=== PATIENT | female | born 1965 | race Caucasian/White ===

== ENCOUNTER → 2022-06-04 12:54 | Outpatient (BNVA) | payer MEDICAID, SELFPAY | PROVIDERS: PCP Internal Medicine; Visit Provider Physician Assistant Surgical | DX: Z13.89 Encounter for screening for other disorder (principal) ==

== ENCOUNTER → 2022-06-09 08:47 | Outpatient (BNVA) | payer MEDICAID, SELFPAY | PROVIDERS: PCP Internal Medicine; Visit Provider Surgery | DX: Z13.89 Encounter for screening for other disorder (principal) ==

== ENCOUNTER 2022-06-14 07:33 | Outpatient (REF) | payer MEDICAID, SELFPAY ==
[2022-06-14 07:51] LABS: MANUAL DIFF FLAG NO
[2022-06-14 08:07] LABS: Basophils Percent Auto 0.3 % (0-2); Eosinophils Absolute Auto 0.1 X10*3/uL (0.0-0.4); Eosinophils Percent Auto 1.8 % (0-4); Estimated Average Glucose 105 mg/dL; Hematocrit 42.7 % (37.0-47.0); Hemoglobin 14.2 g/dl (12.0-16.0); Hemoglobin A1c % 5.3 %; Imm Gran Abs Auto 0.01 X10*3/uL (0.00-0.03); Imm Gran Pct Auto 0.2 % (0.0-0.4); Lymphocytes Absolute Auto 2.5 X10*3/uL (1.2-4.9); Lymphocytes Percent Auto 40.3 % (20-40); Mean Corpuscular HGB Conc 33.3 g/dl (31.0-35.0); Mean Corpuscular Hemoglobin 30.3 pg (27.0-33.0); Mean Corpuscular Volume 91.2 fL (80.0-98.0); Mean Platelet Volume 10.6 fL (9.4-12.3); Monocytes Absolute Auto 0.6 X10*3/uL (0.1-1.2); Monocytes Percent Auto 9.1 % (2-11); Neutrophils Percent Auto 48.3 % (45-73); Platelet Count 321 X10*3/uL (160-400); Red Blood Count 4.68 X10*6/uL (4.20-5.50); Red Cell Distribution Width 13.2 % (11.0-16.0); White Blood Count 6.2 X10*3/uL (4.8-10.8)
[2022-06-14 15:21] LABS: Alanine Aminotransferase 29 U/L (0-31); Albumin Level 4.6 g/dL (3.5-5.0); Alkaline Phosphatase 58 U/L (39-117); Anion Gap 17 (12-20); Aspartate Amino Transferase 30 U/L (5-31); Bilirubin Total 0.7 mg/dL (0.0-1.0); Blood Urea Nitrogen 21 mg/dL (9-16); C Reactive Protein 0.52 mg/dL (< or = 0.50); Carbon Dioxide 30 mmol/L (22-29); Chloride 99 mmol/L (96-108); Cholesterol 247 mg/dL; Estimated Glomerular Filt Rate > 60; Glucose Random 94 mg/dL (60-115); HDL Cholesterol 93 mg/dL; Iron 66 mcg/dL (30-160); LDL Cholesterol Calculated 145 mg/dl; Percent Iron Saturation 20 % (15-50); Potassium 3.6 mmol/L (3.3-5.1); Sodium 142 mmol/L (135-145); Total Iron Binding Capacity 322 mcg/dL (228-428); Total Protein 7.1 g/dL (6.5-8.0); Triglycerides 48 mg/dL; Unsaturated Iron Binding 256 ug/dL
[2022-06-14 15:50] LABS: Ferritin 88 ng/mL (10-250); Folate 17.1 ng/mL (> or = 4.0); Insulin 4 uU/mL (2-29); TSH reflex Free T4 0.81 uIU/mL (0.32-4.0); Vitamin B12 627 pg/mL (200-900); Vitamin D 25-OH Total 45.1 ng/mL (>30)
[2022-06-15 11:49] LABS: Calcium (PTHI) 10.1 mg/dL (8.6-10.4); PTHI 63 pg/mL (16-77)
[2022-06-16 17:09] LABS: Zinc 72 mcg/dL (60-130)
[2022-06-17 06:05] LABS: Vitamin A 71 mcg/dL (38-98)
[2022-06-18 07:44] LABS: Vitamin B1 8 nmol/L (8-30)
== END 2022-06-14 07:34 | disposition home or self-care (01) ==
LOC: HO.LAB 07:33
PROVIDERS: PCP Internal Medicine; Visit Provider Surgery
DX: E66.01 Morbid (severe) obesity due to excess calories (principal); I10 Essential (primary) hypertension
CPT/HCPCS: 36415; 80053; 80061; 82306; 82607; 82728; 82746; 83036; 83525; 83540; 83970; 84425; 84443; 84590; 84630; 85025; 86140

== ENCOUNTER 2022-06-18 13:34 | Outpatient (REF) | payer MEDICAID, SELFPAY ==
--- NOTE | ~2022-06-18 | XR_ITS ---
EXAMINATION: XR CHEST CLINICAL INFORMATION: Bariatric service evaluation. E66.01 COMPARISON: None TECHNIQUE: 2 views of the chest were obtained. FINDINGS: The lungs are clear. The heart is normal in size. The vascularity is normal. The costophrenic sulci are clear. The hilar and mediastinal contours are normal. No acute bony abnormality. There are degenerative changes thoracic spine. XR/XR chest 2V IMPRESSION: Unremarkable examination.
--- NOTE | 2022-06-18 13:40 | ECG_ITS ---
Test Reason : e66.01 Blood Pressure : / mmHG Vent. Rate : 084 BPM Atrial Rate : 084 BPM P-R Int : 158 ms QRS Dur : 108 ms QT Int : 408 ms P-R-T Axes : 061 052 037 degrees QTc Int : 482 ms Normal sinus rhythm Prolonged QT Abnormal ECG No previous ECGs available Referred By: Dave Huff Electronically Signed By:ROSA CORNEJO
== END 2022-06-18 13:35 | disposition home or self-care (01) ==
LOC: HO.XRAY 13:34
PROVIDERS: PCP Internal Medicine; Visit Provider Surgery
DX: E66.01 Morbid (severe) obesity due to excess calories (principal); I10 Essential (primary) hypertension
CPT/HCPCS: 71046; 93005

== ENCOUNTER → 2022-06-25 08:17 | Outpatient (BNVA) | payer MEDICAID, SELFPAY | PROVIDERS: PCP Internal Medicine; Visit Provider Dietitian, Registered | DX: E66.9 Obesity, unspecified (principal); Z68.38 Body mass index [BMI] 38.0-38.9, adult | CPT/HCPCS: 97802 ==

== ENCOUNTER → 2022-06-29 08:08 | Outpatient (BNVA) | payer MEDICAID, SELFPAY | PROVIDERS: PCP Internal Medicine; Visit Provider Physician Assistant | DX: Z11.0 Encounter for screening for intestinal infectious diseases (principal) | CPT/HCPCS: 99211 ==

== ENCOUNTER 2022-06-29 16:43 | Outpatient (REF) | payer MEDICAID, SELFPAY ==
[2022-06-30 11:55] LABS: H Pylori Breath Test Negative (Negative)
== END 2022-06-29 16:44 | disposition home or self-care (01) ==
LOC: HO.LNP 16:43
PROVIDERS: Visit Provider Surgery
DX: E66.01 Morbid (severe) obesity due to excess calories (principal); I10 Essential (primary) hypertension
CPT/HCPCS: 83013

== ENCOUNTER → 2022-07-09 08:16 | Outpatient (BNVA) | payer MEDICAID, SELFPAY | PROVIDERS: PCP Internal Medicine; Visit Provider Dietitian, Registered | DX: E66.9 Obesity, unspecified (principal); Z68.37 Body mass index [BMI] 37.0-37.9, adult | CPT/HCPCS: 97803 ==

== ENCOUNTER → 2022-07-12 08:06 | Outpatient (BNVA) | payer MEDICAID, SELFPAY | PROVIDERS: PCP Internal Medicine; Visit Provider Surgery ==

== ENCOUNTER → 2022-07-13 08:03 | Outpatient (REF) | payer OTHER, SELFPAY ==
--- NOTE | 2022-07-13 08:06 | CA_ITS ---
Acquisition Time: 2022-07-13 08:56:17 Total Exercise Time: 00:06:06 Test Indications: ABN EKG Medications: LOSARTAN-HCTZ Protocol: VILLA Max HR: 155 BPM 93% of Pred: 165 BPM Max BP: 170/088 mmHG Max Work Load: 7.1 METS Exercise stress test exercise 6 min 6 sec of Villa protocol achieiving 94% MPHR and 7.1 METs, without anginal symtpoms, without arrythmia, with normotensive response to exercise, with baseline EKGs showing St/T abnormality in lead 3 and aVF which was present throughout test, non-specific, no changes meeting critieria for ischemia. Test reviewed with Dr. Dorman. Referred By: Dave Huff Overread By: ODELL KAISER
--- NOTE | 2022-07-13 08:06 | CA_ITS ---
Transthoracic Echocardiogram Patient (Last, First, Middle): Libia Ceballos, Gender: Female Date of : 1965 Age: 57 Procedure Date: 07/13/2022 Procedure Type: Transthoracic Echocardiogram Location: OP Height: 172.72 cm Weight: 111.59 kg BSA: 2.23 m2 Heart Rate: bpm BP: 118 / 70 mmHg System Specialist: SUZANNA Referring MD: Dave Huff MD Symptoms: R94.31 - Abnormal electrocardiogram [ECG] [EKG] Study Quality: Adequate ECG Rhythm: Sinus Conclusions: - The left ventricular systolic function is normal. The calculated ejection fraction is 65% by biplane method. - No obvious valvular pathology seen on this study. Findings Left Ventricle Normal left ventricular cavity size. There is normal left ventricular wall thickness. The left ventricular systolic function is normal. The calculated ejection fraction is 65% by biplane method. There is no evidence of regional wall motion abnormalities. Diastolic function is normal for age. LV peak GLS -22.8%. Right Ventricle Normal right ventricular cavity size and systolic function. Atria Both atria are normal in size. Aortic Valve There is a normal trileaflet aortic valve. There is no aortic valve stenosis. There is no aortic valve regurgitation. Mitral Valve The mitral valve appears normal. There is no mitral valve regurgitation. There is no mitral valve stenosis. Pulmonic Valve The pulmonic valve is likely normal. Tricuspid Valve There is mild tricuspid valve regurgitation. There is no evidence of pulmonary hypertension. Great Vessels The asc aorta and aortic arch are normal in size. Venous The inferior vena cava is mildly dilated and collapses greater than 50% with inspiration. Pericardium/Pleural Possible very small pericardial effusion posteriorly. Prior Study Comparison No prior study available for comparison. Recommendations, Care & Conclusions No obvious valvular pathology seen on this study. Measurements 2D Linear Measurements IVSd: 0.66 0.6-0.9/0.6-1.0 cm LVIDd: 4.78 3.9-5.3/4.2-5.9 cm LVIDd Index: 2.14 2.4-3.2/2.2-3.1 cm/m2 LVIDs: 2.65 2.0-3.6 cm LVPWd: 0.88 0.7-1.1 cm LA Diam: 3.50 2.7-3.8/3.0-4.0 cm LAIDs Index: 1.57 1.5-2.3 cm/m2 LV Mass: 148.95 67-162/88-224 g LV Mass Index: 66.79 43-95/49-115 g/m2 LVOT Diam: 2.20 3.0+(-)1.3 cm 2D Systolic Function EF 4C: 65.60 >55% EF 2C: 64.10 >55% EF BiP: 64.90 >55% Mitral Valve MV Pk E: 1.05 MV PK A: 0.71 MV Decel Time: 162.00 E/A: 1.50 E'Lateral: 10.30 E'Medial: 7.62 E/E' Med: 13.80 E/E' Lat: 10.20 PHT: 47.00 MVA PHT: 4.68 Decel [place]: 6.50 Aortic Valve AoV Pk Tam: 1.31 AoV Mn Tam: 0.91 AoV VTI: 0.29 AoV Pk Grad: 7.00 Aov Mn Grad: 4.00 JAMMIE Cont.VTI: 3.57 LVOT LVOT Pk Tam: 1.17 LVOT Mn Tam: 0.82 LVOT VTI: 0.27 LVOT Pk Grad: 5.00 LVOT Mn Grad: 3.00 LVOT Diam: 2.20 LVOT Area: 3.80 Diastolic Function MV Pk E: 1.05 MV Pk A: 0.71 E/A: 1.50 E'Medial: 7.62 E/E' Med: 13.80 E' Laterial: 10.30 E/E' Lat: 10.20 Right Ventricle TAPSE (mm): 21.70 TVS' Tam: 14.40 Tricuspid Valve TR Pk Tma: 2.38 TR Pk Grad: 23.00 RA Press: 8.00 RVSP: 31.00 Great Vessels Aorta Sinus of Valsalva: 3.36 2.0-3.[address] [place]: 2.95 1.7-3.4 cm Ao Asc: 3.20 2.1-3.4 cm Ao Arch: 2.70 Updated in Other Vendor System with Status of Final Ildefonso Arroyo MD electronically signed on 07/13/2022 4:41:05 PM with status of Final
== END ==
LOC: HO.CARD 08:03
PROVIDERS: PCP Internal Medicine; Visit Provider Surgery
DX: Z01.818 Encounter for other preprocedural examination (principal); R06.02 Shortness of breath; R94.31 Abnormal electrocardiogram [ECG] [EKG]
CPT/HCPCS: 93017; 93306; 93356

== ENCOUNTER 2022-08-05 09:39 | Outpatient (REF) | payer OTHER, SELFPAY ==
--- NOTE | ~2022-08-05 | FL_ITS ---
EXAMINATION: XR FLUOROSCOPY UPPER GI WITH AIR CLINICAL INFORMATION: Morbid obesity. COMPARISON: None available. TECHNIQUE: Air-contrast upper GI examination. FINDINGS: There is normal apposition of the vocal cords while saying E. There is normal elevation of the soft palate while saying candy. Patient swallowed thin and thick barium and half-inch diameter barium tablet without difficulty. No nasopharyngeal reflux or tracheal aspiration identified. No persistent esophageal stricture is seen. No mucosal abnormality of the esophagus is noted. No hiatal hernia is seen. There is free gastroesophageal reflux to the level of the thoracic inlet which clears rapidly. The stomach demonstrates normal distensibility without abnormal mass or ulceration. There was no delay in gastric emptying. The duodenal bulb and sweep appear unremarkable. FLUOROSCOPY TIME: 1.2 minutes DOSE AREA PRODUCT: 14.453 Gy-cm2 (khalil-centimeter squared) FL/FL upper GI w air IMPRESSION: Gastroesophageal reflux to the level of the thoracic inlet. Otherwise unremarkable air-contrast upper GI examination.
== END 2022-08-05 09:40 | disposition home or self-care (01) ==
LOC: HO.XRAY 09:39
PROVIDERS: PCP Internal Medicine; Visit Provider Surgery
DX: Z01.818 Encounter for other preprocedural examination (principal); E66.9 Obesity, unspecified; K21.9 Gastro-esophageal reflux disease without esophagitis
CPT/HCPCS: 74246

== ENCOUNTER → 2022-08-11 08:09 | Outpatient (BNVA) | payer OTHER, SELFPAY | PROVIDERS: PCP Internal Medicine; Visit Provider Surgery ==

== ENCOUNTER 2022-08-23 08:12 | Outpatient (REF) | payer OTHER, SELFPAY ==
--- NOTE | ~2022-08-23 | US_ITS ---
EXAMINATION: US COMPLETE ABDOMEN WITH LIVER ELASTOGRAPHY CLINICAL INFORMATION: Obesity COMPARISON: None available. TECHNIQUE: Real-time imaging of the abdominal viscera. Noninvasive ultrasound liver fibrosis assessment is performed using Vanda ElastPQ point quantification shear wave elastography (2D-SWE) with a C5-2 MHz transducer. Multiple elastography samples are obtained. FINDINGS: PANCREAS: Normal. ABDOMINAL AORTA: The proximal, middle, and distal aortic segments are normal in caliber. INFERIOR VENA CAVA: Visualized portions are normal. LIVER: The liver demonstrates normal size and contour. Liver echotexture is slightly increased.. No focal lesion. There is intrahepatic biliary duct dilatation. The right lobe measures 14 cm in length. The left lobe measures 9 cm in length. Portal flow is normal/hepatopedal Shear wave liver elastography median stiffness is 1.65 m/s (reference: normal median stiffness is 1.3 m/s or less). IQR/median stiffness to assess sampling precision is 0.1 (reference: good quality data set is IQR/median stiffness of 0.15 or less). GALLBLADDER: Surgically removed COMMON BILE DUCT: Slightly dilated measuring 1.2 cm in diameter. RIGHT KIDNEY: Normal. No hydronephrosis. No renal calculi or focal parenchymal lesions. The kidney measures 10 cm in maximum dimension. LEFT KIDNEY: Normal. No hydronephrosis. No renal calculi or focal parenchymal lesions. The kidney measures 11 cm in maximum dimension. SPLEEN: Normal. The spleen measures 9.5 cm in maximum dimension. FREE FLUID: None. US/US abdomen comp w elastography IMPRESSION: 1. Impression: Slightly echogenic liver. Dilated intra and extrahepatic bile ducts. The common bile duct measures 1.2 cm. Patient is post cholecystectomy. 2. Liver elastography: Adequate liver sampling. In the absence of other known clinical signs, rules out compensated advanced chronic liver disease. REFERENCE: Society of Radiologists in Ultrasound Liver Stiffness Thresholds (2020): LIVER STIFFNESS THRESHOLDS: *Liver Stiffness equal or less than 1.3 m/s: High probability of being normal. *Liver Stiffness less than 1.7 m/s: *Liver Stiffness 1.7-2.1 m/s: Suggestive of compensated advanced chronic liver disease but need further test for confirmation. *Liver Stiffness over 2.1 m/s: Rules in compensated advanced chronic liver disease. *Liver Stiffness over 2.4 m/s: Suggestive of clinically significant portal hypertension. QUALITY OF DATA SET: *IQR/Median value equal or less than 0.15 implies a quality data set. *IQR/Median value over 0.15 implies a poor quality data set. SIGNIFICANT CHANGE FROM PRIOR EXAM: Significant change if liver stiffness measurement is 10% or greater from prior exam. OTHER CONSIDERATIONS: The stage of liver fibrosis may be overestimated in the setting of acute hepatitis, liver inflammation, elevated liver function tests, hepatic vascular congestion, obstructive cholestasis, non-fasting state, and infiltrative diseases such as amyloidosis and lymphoma. In some patients with NAFLD, the liver stiffness thresholds for compensated advanced chronic liver disease may be lower. In causes other than viral hepatitis and NAFLD, liver stiffness thresholds are not well established.
== END 2022-08-23 08:13 | disposition home or self-care (01) ==
LOC: HO.US 08:12
PROVIDERS: PCP Internal Medicine; Visit Provider Surgery
DX: E66.01 Morbid (severe) obesity due to excess calories (principal); I10 Essential (primary) hypertension
CPT/HCPCS: 76705; 76981

== ENCOUNTER → 2022-09-15 08:03 | Outpatient (BNVA) | payer OTHER, SELFPAY | PROVIDERS: PCP Internal Medicine; Visit Provider Surgery ==

== ENCOUNTER → 2022-09-21 08:19 | Outpatient (BNVA) | payer OTHER, SELFPAY | PROVIDERS: PCP Internal Medicine; Visit Provider Surgery ==

== ENCOUNTER → 2022-09-24 08:08 | Outpatient (BNVA) | payer OTHER, SELFPAY | PROVIDERS: PCP Internal Medicine; Visit Provider Surgery ==

== ENCOUNTER 2022-09-25 07:19 | Outpatient (REF) | payer OTHER, SELFPAY ==
[2022-09-25 08:00] LABS: MANUAL DIFF FLAG NO
[2022-09-25 08:31] LABS: Basophils Percent Auto 0.5 % (0-2); Eosinophils Absolute Auto 0.1 X10*3/uL (0.0-0.4); Eosinophils Percent Auto 2.3 % (0-4); Hematocrit 39.2 % (37.0-47.0); Hemoglobin 13.3 g/dl (12.0-16.0); Imm Gran Abs Auto 0.01 X10*3/uL (0.00-0.03); Imm Gran Pct Auto 0.2 % (0.0-0.4); Lymphocytes Absolute Auto 1.8 X10*3/uL (1.2-4.9); Lymphocytes Percent Auto 32.4 % (20-40); Mean Corpuscular HGB Conc 33.9 g/dl (31.0-35.0); Mean Corpuscular Hemoglobin 30.8 pg (27.0-33.0); Mean Corpuscular Volume 90.7 fL (80.0-98.0); Mean Platelet Volume 11.8 fL (9.4-12.3); Monocytes Absolute Auto 0.5 X10*3/uL (0.1-1.2); Monocytes Percent Auto 8.2 % (2-11); Neutrophils Absolute Auto 3.1 x10*3/uL (2.0-8.3); Neutrophils Percent Auto 56.4 % (45-73); Platelet Count 286 X10*3/uL (160-400); Red Blood Count 4.32 X10*6/uL (4.20-5.50); Red Cell Distribution Width 13.7 % (11.0-16.0); White Blood Count 5.6 X10*3/uL (4.8-10.8)
[2022-09-25 08:40] LABS: Estimated Average Glucose 94 mg/dL; Hemoglobin A1c % 4.9 %
[2022-09-25 08:41] LABS: Partial Thromboplastin Time 33.3 SEC (26.0-36.4)
[2022-09-25 09:10] LABS: Alanine Aminotransferase 18 U/L (0-31); Albumin Level 4.3 g/dL (3.5-5.0); Alkaline Phosphatase 52 U/L (39-117); Anion Gap 16 (12-20); Aspartate Amino Transferase 22 U/L (5-31); Bilirubin Total 1.2 mg/dL (0.0-1.0); Blood Urea Nitrogen 11 mg/dL (9-16); C Reactive Protein 1.08 mg/dL (< or = 0.50); Calcium 10.2 mg/dL (8.4-10.2); Carbon Dioxide 30 mmol/L (22-29); Chloride 97 mmol/L (96-108); Estimated Glomerular Filt Rate > 60; Glucose Random 89 mg/dL (60-115); Potassium 3.3 mmol/L (3.3-5.1); Sodium 140 mmol/L (135-145); Total Protein 7.3 g/dL (6.5-8.0)
[2022-09-25 09:26] LABS: Insulin 2 uU/mL (2-29); TSH reflex Free T4 0.36 uIU/mL (0.32-4.0)
== END 2022-09-25 07:20 | disposition home or self-care (01) ==
LOC: HO.LAB 07:19
PROVIDERS: Visit Provider Surgery
DX: E66.9 Obesity, unspecified (principal); Z68.35 Body mass index [BMI] 35.0-35.9, adult
CPT/HCPCS: 36415; 80053; 83036; 83525; 84443; 85025; 85610; 85730; 86140

== ENCOUNTER 2022-09-29 13:08 | Inpatient (IN) | payer OTHER, SELFPAY ==
[2022-09-24 10:18] VITALS: BMI 34.7
--- NOTE | 2022-09-25 15:24 | MHC.SHP ---
Pre-Procedural Eval Section A Date of Service: 09/25/22 The patient is an INPATIENT: Yes The History & Physical has been completed within 30 days and I have reviewed it.: Yes Section B Chief Complaint: Obesity, unspecified Relevant Family History (Specify if Yes): No Relevant Social History: None Present Medications: None Medical History: No relevant PMH History of Previous Operations: No relevant previous surgery Allergies: Allergies Allergy/AdvReac Type Severity Reaction Status Date / Time SODIUM PEN Allergy Mild Nausea Uncoded 09/21/22 10:53 Review of Systems Sugical H&P ROS: Negative: Constitution, Cardiovascular, Respiratory, Neurological, Psychiatric, Hem-Onc, Allergic/Immunologic, Gastrointestinal, Genitourinary, Musculoskeletal, Integumentary, Endocrine and Eyes/Ears/Nose/Throat Exam Surgical H&P Exam: Normal: HEENT, Normal: Heart, Normal: Lungs, Normal: Extremities, Normal: Abdomen, Normal: Skin and Normal: Neurological Plan Diagnosis/Plan: Unchanged I have reviewed the history and physical and performed a pertinent physical examination on my patient. No changes have occurred unless specified. Time Spent With Patient Time: Total time managing care of this patient today ____ minutes.
--- NOTE | 2022-09-28 09:58 | P.CONAN_ITS ---
Documented by User: Faby Santiago NP 09/28/22 10:03 HPI - Anesthesia Eval Consult details Narrative: 57yo F for Gastrectomy Sleeve,EGD,poss diaphragmatic hernia,poss ventral hernia,poss open, PMFSH Active Problems Active Problems: All Active Problems (Updated 09/24/22 @ 10:09 by Danyell Monreal RN) Abnormal EKG (Acute) Obesity (Acute) BMI 37.0-37.9, adult (Acute) Adjustment disorder with anxiety (Acute) BMI 36.0-36.9,adult (Acute) Constipation (Acute) BMI 35.0-35.9,adult (Acute) Thyroid nodule (Acute) Insomnia (Acute) DJD (degenerative joint disease) (Acute) Hypertension (Acute) Morbid obesity (Acute) Past Medical History Medical History (Updated 09/29/22 @ 14:47 by Dave Huff MD) DJD (degenerative joint disease) History of diverticulitis Hx of ectopic Hypertension Insomnia Morbid obesity PONV (postoperative nausea and vomiting) Thyroid nodule Family History Family History (Updated 06/04/22 @ 13:23 by Destini Presley CMA) Mother Hypertension Father Hypertension Sister No problems noted. Sister No problems noted. Sister No problems noted. Sister No problems noted. Sister Hypertension Stroke Brother No problems noted. Surgical History Surgical History (Updated 09/29/22 @ 16:48 by Elaine Kathleen PA-C) Hx of cholecystectomy Hx of colonoscopy Hx of hysterectomy, total Social History Social History (Updated 06/04/22 @ 13:21 by Destini Presley CMA) Are you a primary ambulatory care coordinator to a significant other at home: No Do you presently have visiting nurse or other home services: No Alcohol intake: current Alcohol intake frequency: holidays/special occasions only Patient Tobacco Use Status: Never used Tobacco Use of substances other than those prescribed or required for medical reasons: No Have you been hit, kicked, punched, or otherwise hurt by someone within the past year? If so, by whom?: No Are you DNR?: No Advance Directives: No Advance Directives Information Provided: No Advance Directives on File: No Recently lost weight without trying: No How much weight loss: 34pounds or more Eating poorly because of decreased appetite: No Nutrition screen score: 4 Nutrition Risks: No Nutritional Risk Patient : No : No Poor oral hygiene: No Meds Allergies Allergy/AdvReac Type Severity Reaction Status Date / Time SODIUM PEN Allergy Mild Nausea Uncoded 09/29/22 13:10 Home Medications Medication Instructions Recorded Confirmed Last Taken Type acetaminophen 500 mg tablet 500 mg PO Q6H PRN Pain 06/04/22 09/24/22 09/28/22 History (Tylenol Extra Strength) biotin 10,000 mcg capsule (García mcg PO 06/04/22 09/21/22 09/28/22 History Biotin) melatonin 10 mg capsule 10 mg PO BEDTIME PRN Sleep 06/04/22 09/24/22 09/28/22 History multivitamin 1 tab PO DAILY 06/04/22 09/24/22 09/28/22 History Exam Exam Date and Time: September 28, 2022 0958 Height,Weight and Vital Signs: Height 5 ft 8 in Weight 103.419 kg Pertinent Lab Results Pertinent Lab Results: Laboratory Tests 09/25/22 09/25/22 07:58 07:58 WBC 5.6 Hgb 13.3 Hct 39.2 Plt Count 286 Sodium 140 Potassium 3.3 Chloride 97 Carbon Dioxide 30 H BUN 11 Creatinine 0.77 Narrative Narrative: EKG 06/2022 Vent. Rate : 084 BPM ? ? Atrial Rate : 084 BPM ?? P-R Int : 158 ms? QRS Dur : 108 ms ? ? QT Int : 408 ms ? ? ? P-R-T Axes : 061 052 037 degrees ?? QTc Int : 482 ms ? Normal sinus rhythm Prolonged QT Abnormal ECG No previous ECGs available ECHO 07/2022 Conclusions: - The left ventricular systolic function is normal.? The ? calculated ejection fraction is 65% by biplane method. ? - No obvious valvular pathology seen on this study.? Exercise Stress 07/2022 Protocol: ERIC ? Max HR: 155 BPM? 93% of? Pred: 165 BPM Max BP: 170/088 mmHG Max Work Load: 7.1 METS ? Exercise stress test exercise 6 min 6 sec of Eric protocol achieiving 94% MPHR ?and 7.1 METs, without anginal symtpoms, without arrythmia, with normotensive ?response to exercise, with baseline EKGs showing St/T abnormality in lead 3 and ?aVF which was present throughout test, non-specific, no changes meeting ?critieria for ischemia. Test reviewed with Dr. Dorman. Assessment and Plan Assessment Anesthesia Assessment: Chart Reviewed Documented by User: Ata Biggs MD 09/29/22 17:08 HPI - Anesthesia Eval Consult details Narrative: 57yo F for Gastrectomy Sleeve,EGD,poss diaphragmatic hernia,poss ventral hernia,poss open, no CP/ SOB . Functional status greater than 4 mets PMFSH Past Medical History Medical History (Updated 09/29/22 @ 14:47 by Dave Huff MD) DJD (degenerative joint disease) History of diverticulitis Hx of ectopic Hypertension Insomnia Morbid obesity PONV (postoperative nausea and vomiting) Thyroid nodule Functional capacity: independent ambulation Family History Family History (Updated 06/04/22 @ 13:23 by Destini Presley CMA) Mother Hypertension Father Hypertension Sister No problems noted. Sister No problems noted. Sister No problems noted. Sister No problems noted. Sister Hypertension Stroke Brother No problems noted. Family history of problems with anesthesia: No Surgical History Surgical History (Updated 09/29/22 @ 16:48 by Elaine Kathleen PA-C) Hx of cholecystectomy Hx of colonoscopy Hx of hysterectomy, total History of Problems with Anesthesia: No Social History Social History (Updated 06/04/22 @ 13:21 by Destini Presley CMA) Are you a primary ambulatory care coordinator to a significant other at home: No Do you presently have visiting nurse or other home services: No Alcohol intake: current Alcohol intake frequency: holidays/special occasions only Patient Tobacco Use Status: Never used Tobacco Use of substances other than those prescribed or required for medical reasons: No Have you been hit, kicked, punched, or otherwise hurt by someone within the past year? If so, by whom?: No Are you DNR?: No Advance Directives: No Advance Directives Information Provided: No Advance Directives on File: No Recently lost weight without trying: No How much weight loss: 34pounds or more Eating poorly because of decreased appetite: No Nutrition screen score: 4 Nutrition Risks: No Nutritional Risk Patient : No : No Poor oral hygiene: No Meds Allergies Allergy/AdvReac Type Severity Reaction Status Date / Time SODIUM PEN Allergy Mild Nausea Uncoded 09/29/22 13:10 Home Medications Medication Instructions Recorded Confirmed Last Taken Type acetaminophen 500 mg tablet 500 mg PO Q6H PRN Pain 06/04/22 09/24/22 09/28/22 History (Tylenol Extra Strength) biotin 10,000 mcg capsule (García mcg PO 06/04/22 09/21/22 09/28/22 History Biotin) melatonin 10 mg capsule 10 mg PO BEDTIME PRN Sleep 06/04/22 09/24/22 09/28/22 History multivitamin 1 tab PO DAILY 06/04/22 09/24/22 09/28/22 History Exam Airway Mallampati Class: III Neck ROM: Full Loose/Missing/Broken Teeth: Yes (Implants) Assessment and Plan Assessment Anesthesia Assessment: Anesthesia Plan Discussed Final Anesthetic Review Family History of Problems with Anesthesia: No History of Problems with Anesthesia: No NPO: Yes ASA Class: III Final Preanesthetic Review: Meds/Allgs Chart Reviewed, Consent Obtained/Reviewed and Anes Risks/Benef Reviewed Patient Risk: Intermediate Procedure Risk: Intermediate Anesthetic Plan Anesthetic Plan: GA and Agree w/ Assess. and Plan Disposition: Standard PACU
[2022-09-28 13:43] LABS: COVID-19 Test Negative (Negative); IDNOW Serial# 9DB6401D
[2022-09-29] VITALS (11 sets, daily range): BP systolic 122–138; BP diastolic 65–81; PULSE 66–79; RESP 13–18; TEMP 35.9–36.1; O2SAT 97–99; BMI 36.8
[2022-09-29] MEDS: Aprepitant 32 MG/4.4 ML VIAL IVPUSH (13:53)
[2022-09-29] MEDS: Lactated Ringers 1,000 ML 999 ML IV (13:55)
--- NOTE | 2022-09-29 14:43 | P.BOP_ITS ---
Brief Operative Note Date of Service: 09/29/22 Pre-op diagnosis: Severe obesity with comorbidities Post-op diagnosis: same Procedure: INITIAL PATIENT BMI ON PRESENTATION AT OUR OFFICE: 40.5 kg/m2 LAST BMI BEFORE SURGERY: 34.8 kg/m2 COMORBIDITIES: hypertension, insomnia, DJD, GERD, liver steatosis, liver fibrosis ?The patient presented to the Weight Management Program with significant obesity that was negatively impacting the patient's comorbidities as listed above.? The program is a phased program with a special focus on preoperative medical weight management to promote substantial weight loss and prepare the patients for the second phase of the program: bariatric surgery. The patient participated in an intensive weekly lifestyle ?intervention and exercise program during which the patient ?has lost between the initial office visit and the last preoperative visit 39.8 lbs, or 14.94% of initial actual body weight. It was deemed appropriate for the patient to now have bariatric surgery. In light of the current Covid-19 pandemic and the well documented strong association of obesity and increased risk of worse outcomes if infected with Covid-19 (REFERENCES: https://pubmed.ncbi.nlm.nih.gov/33991653/ ,? https://pubmed.ncbi.nlm.nih.gov/11125535/ ), any delay in undergoing bariatric surgery may lead to the patient's worsening health condition and increased?risk of more severe Covid-19 disease if infected. In addition a recent?study from [facility] published in [facility] on 04/06/2021 ([email or web address]) found that, among patients with obesity, substantial weight loss achieved with surgery was associated with improved outcomes of COVID-19 infection. The findings suggest that obesity can be a modifiable risk factor for the severity of COVID-19 infection. In addition, the patient met the BMI-criteria for bariatric surgery based on the BMI on initial presentation. The patient should not be penalized for achieving such weight loss because ?it is not sustainable long-term without surgical intervention and it was achieved in preparation for bariatric surgery ?under my direction and based on my published research ([email or web address]).[email or web address] and? https://www.soard.org/article/[email or web address](49)59614-X/pdf ) ?that a 10% preoperative weight loss improves long-term weight loss after surgery and reduces perioperative complications.? Insurance carriers such as [facility] have endorsed my recommendations ?and have included in their policies criteria to include a 10% preoperative weight loss requirement. PROCEDURE: Esophago-gastroscopy, laparoscopic sleeve gastrectomy and laparoscopic gastropexy INDICATIONS: This is a 57 year-old female who was electively scheduled for laparoscopic, possibly open sleeve gastrectomy. The risks and complications of the procedure were discussed with the patient in advance, particularly the possibility of ; pulmonary embolism; staple line leak; bleeding; GERD; cardiac, pulmonary, or renal complications; as well as long-term problems such as insufficient weight loss, vitamin deficiency, strictures, or ulcers. The patient understood all the risks, and was in agreement to proceed with surgery. DESCRIPTION OF PROCEDURE: After informed consent was obtained from the patient, the patient was given preoperative antibiotics, and was transferred to the operating room. After successful induction of general anesthesia, pneumatic compression devices were placed on both lower extremities. An upper endoscopy was performed next. The oropharynx and esophagus appeared to be within normal limits. There was no diaphragmatic hernia present consistent with the findings of the preoperative upper GI. The stomach was entered. Then after all fluid and air were suctioned and the stomach was fully decompressed, the scope was withdrawn and secured in the mid esophagus. The patient was then prepped and draped in the usual sterile manner, and abdominal access was established at the right upper quadrant with the Cecilio technique. A 12 mm blunt port was inserted, and the abdomen was insufflated with CO2 to a pressure of 15 mmHg. Under direct visualization, additional ports were placed, specifically two 5 mm Versi-step ports to the left upper quadrant, and a 5 mm Versi-Step port to the right upper quadrant. 1% lidocaine plain was used to infiltrate all port sites as well as all fascia defects. Following that, the patient was placed in a steep reverse Trendelenburg position. An additional 5 mm port was placed to the right flank for the Mediflex retractor that was used to retract the left lobe of the liver. The gastro-esophageal fat pad was opened with the ultrasonic device (Thunderbeat, Olympus) and the anterior esophagus and hiatus were exposed. The angle of His was opened with the ultrasonic device the fundus of the stomach from any diaphragmatic and splenic attachments. I then opened the gastrocolic ligament between the transverse colon and the greater curvature of the stomach with the ultrasonic device to enter the lesser sac and facilitate the ligation of the short gastric vessels. I started at a mid-point along the greater curvature and using the Thunderbeat, all short gastric vessels were divided all the way to the angle of His until the left nils was completely dissected at its entirety. I then divided the gastro-colic ligament distally to a distance of about 3-4 cm proximal to the pylorus. The stomach was then divided transversely with one Endo ELIUD-45 purple, and four ELIUD-60 articulating purple loads using the Insights stapler and loads. Every effort was made that the gastric sleeve had a tubular shape and an even caliber throughout. Once the sleeve resection was completed, the staple line of the gastric sleeve was reinforced with Hemoclips. The resected stomach was retrieved without difficulty from the Cecilio port. A gastropexy was then performed in order to prevent postoperative GERD and partial gastric volvulus. Several interrupted 2.0 Surgidac sutures were placed between the sleeve's staple line and the previously divided greater omentum and gastro-colic ligament using the Endo-Stitch device. ?An upper endoscopy was performed. There was no narrowing at the GE junction. The scope was easily advanced all the way to the pylorus which was clearly visualized. There was no narrowing anywhere and the sleeve's caliber was even throughout. The sleeve's staple line was inspected and there was no evidence of ischemia, bleeding or dehiscence. At that point the gastroscope was withdrawn from the patient?s mouth while we were decompressing the bowel and the stomach from any remaining air. I looked into the lesser sac to see how the sleeve was situating and it was situating well. There was no bleeding from the staple line, spleen, or short gastric vessels. The Mediflex retractor was removed, and the undersurface of the liver was inspected and there was no bleeding. The patient was placed in supine position. I closed the fascial defect of the 12 mm port site with a figure of eight #1 Polysorb suture. Then 30cc Ropivacaine plain with 10 mg of Dexamethasone were used to infiltrate the fascial closure as well as all skin incisions. At this point, the abdomen was deflated, all ports were removed under direct vision, and no bleeding was noted from any of the port sites. The skin incisions were irrigated with saline and were closed with 4-0 absorbable monofilament sutures. Steri-Strips and OpSites were used to cover all incisions. The patient was extubated and was transferred in stable condition to the recovery room for further care. I was present and performed all bañuelos parts of the procedure. Kathleen was the mental health assistant. There were no residents to assist with this case. Slade Huff MD, PhD, FACS Surgeon: Dave Huff MD Anesthesia: GETA, local and other (TAP block) Was an Rn Faculty used for this Procedure?: No Rn Faculty: Elaine Kathleen Estimated blood loss (mL): 10 IV fluids (mL): 2,100 Urine output (mL): 0 (No Kong to record output) Pathology: other (Stomach) Condition: stable Disposition: PACU
--- NOTE | 2022-09-29 14:46 | PM.PNGS ---
Subjective Subjective Date of Service: 09/30/22 Interval history: Feels well. Mild incisional pain. She is tolerating phase 1 bariatric diet Physical Exam Vital Signs: Vital Signs: Last Vital Signs Temp 96.8 F 09/29/22 13:17 Pulse 72 09/29/22 13:17 Resp 15 09/29/22 13:17 BP 122/69 09/29/22 13:17 Pulse Ox 98 09/29/22 13:17 O2 Del Method Room Air 09/29/22 13:17 BMI result Body Mass Index 34.7 GI: Inspection: Yes normal to inspection, Yes incision (clean, dry and intact) and Yes obesity Palpation (GI): Soft to palpation Extrem: Right lower extremity: normal to inspection (no calf tenderness) Left lower extremity: normal to inspection (no calf tenderness) Objective Data Active Medications Lactated Ringer's (Lr) 1,000 mls @ 100 mls/hr IVCONT .Q10H POLINA Lactated Ringer's (Lr) 1,000 mls @ 999 mls/hr IV .Q1H1M POLINA Stop: 09/29/22 15:15 Last Admin: 09/29/22 13:55 Dose: 999 mls/hr Documented By: KARLENE Labs 09/29/22 17:18 09/29/22 17:18 Labs: Laboratory Results - last 24 hr 09/29/22 13:17 Blood Type A Negative Antibody Screen NEGATIVE Procedures Date of Service Date of Service: 09/30/22 Progress Note: A&P Assessment and plan (1) Obesity: Status: Acute Assessment and Plan: s/p laparoscopic sleeve gastrectomy and gastropexy Doing well Will check am labs and if OK the patient will be discharged home (2) BMI 34.0-34.9,adult: Status: Acute (3) Hypertension: Status: Acute (4) DJD (degenerative joint disease): Status: Acute (5) Insomnia: Status: Acute (6) Steatosis, liver: Status: Acute (7) Liver fibrosis: Status: Acute (8) S/P laparoscopic sleeve gastrectomy: Status: Acute Time Spent With Patient Time: Total time managing care of this patient today ____ minutes. Quality Stroke Does the patient have a stroke diagnosis?: No VTE Prior VTE?: No VTE Risk Level:: Surgical - moderate VTE Device Contraindication: N/A - Device Ordered VTE Drug Contraindication: Treatment Not Indicated
--- NOTE | 2022-09-29 14:50 | P.DS_ITS ---
DS: Providers Provider Date of Service: 09/30/22 Date of admission: 09/29/22 13:08 Primary care physician: Gladis Momin MD DS: Diagnosis Discharge Diagnosis (1) Obesity: Status: Acute (2) BMI 34.0-34.9,adult: Status: Acute (3) Hypertension: Status: Acute (4) DJD (degenerative joint disease): Status: Acute (5) Insomnia: Status: Acute (6) Steatosis, liver: Status: Acute (7) Liver fibrosis: Status: Acute DS: Summary Hospital Course Hospital Course: ADMITTING DIAGNOSIS: morbid obesity, HTN DISCHARGE DIAGNOSIS: same, s/p laparoscopic sleeve gastrectomy PAST SURGICAL HISTORY: none PROCEDURE: upper endoscopy, laparoscopic sleeve gastrectomy DISCHARGE SUMMARY: History of Present Illness: The patient is a 57 year-old woman with a BMI of 40.4 kg/m2 and associated co- morbidities as described above. The patient had extensive work-up, lost 30.6 lbs preoperatively and was electively scheduled for laparoscopic, possible open sleeve gastrectomy and gastropexy. Risks and complications of the surgery were discussed with the patient in advance, particularly the possibility of , pulmonary embolism, anastomotic leak, bleeding, bowel injury, GERD, cardiac, renal or pulmonary complications. The patient understood all the risks and was in agreement with the surgical plan. Hospital Course: The patient underwent an uneventful laparoscopic sleeve gastrectomy with gastropexy on the day of admission. Postoperatively, the patient was transferred to the surgical floor. The patient received IV Acetaminophen and IV dilaudid for pain control. Patient was started on bariatric phase 1 diet POD #0. On p ostoperative day one, the patient was feeling well without nausea, vomiting, fevers, or tachycardia. The patient had some mild incisional pain and the abdomen was soft. On the morning of postoperative day one, the patient was continued on 1 ounce of water or ice every half hour. During the day, the patient did fairly well, having some incisional pain, but able to ambulate adequately and to tolerate liquids well. Since the patient is doing well, we decided that the patient was ready to be discharged. The patient was given instructions to follow-up with me next week and to call my office for any fever over 101, persistent abdominal pain, nausea, vomiting, GERD, symptoms of DVT such as calf tenderness, or leg swelling, or pulmonary embolism such as chest pain or shortness of breath. The patient was also instructed to drink 40-60 ounces of liquids per day using the 1-ounce cups. The patient had been given prescriptions for Tylenol for pain, Zofran prn for nausea, and pantoprazole and carafate previously. The patient was encouraged to ambulate and use the incentive spirometer. The patient was allowed to shower, but no baths, and encouraged to stay active at home. All of these instructions were given to the patient personally. All questions were answered and the patient understood all instructions, the instructions were also given to the patient in print. Time Spent with Patient Time attestation: Total time managing care of this patient today ____ minutes. Discharge coordination time: Less than 30 minutes Quality: Safe Use of Opioids Does Pt have an Active Cancer Diagnosis on the Problem List?: No Quality: Stroke Does the patient have a stroke diagnosis?: No Physical Exam Vital Signs: Vital Signs: Last Vital Signs Temp 96.8 F 09/29/22 13:17 Pulse 72 09/29/22 13:17 Resp 15 09/29/22 13:17 BP 122/69 09/29/22 13:17 Pulse Ox 98 09/29/22 13:17 O2 Del Method Room Air 09/29/22 13:17 BMI result Body Mass Index 34.7 DS: Data Data Completed and Pending Labs on day of discharge: Laboratory Results - last 24 hr 09/29/22 13:17 Blood Type A Negative Antibody Screen NEGATIVE Discharge Plan Discharge Anticipated Discharge Date/Time: 09/30/22 11:48 Patient Disposition: Home, Self-Care Discharge Diagnosis: s/p sleeve gastrectomy Referrals: Gladis Momin MD [Primary Care Provider] - 1 Week Discharge Medications: Continued pantoprazole 40 mg tablet,delayed release (DR/EC) 40 mg PO DAILY Qty: 30 2RF sucralfate 100 mg/mL suspension 10 ml PO BID Qty: 400 2RF ondansetron 4 mg tablet,disintegrating 4 mg PO Q12H Qty: 20 0RF Rx Instructions: Only take one every 12 hours as needed if you have nausea Held melatonin 10 mg capsule 10 mg PO BEDTIME PRN (Reason: Sleep) Hold Instructions: Resume on 10/04/22. hydrochlorothiazide 25 mg tablet 25 mg PO DAILY Qty: 30 2RF Hold Instructions: Resume on 10/01/22. Check your blood pressure every evening and send it to Dr. Huff. Do not take the medication before you hear from Dr. Huff. Do not take the medication if your blood pressure is below 120/70 mmHg. Rx Instructions: 12.5mg taken only losartan 50 mg tablet 50 mg PO DAILY Qty: 30 2RF Hold Instructions: Resume on 10/01/22. Check your blood pressure every evening and send it to Dr. Huff. Do not take the medication before you hear from Dr. Huff. Do not take the medication if your blood pressure is below 120/70 mmHg. Discontinued docusate sodium [Colace] 100 mg capsule 100 mg PO DAILY Qty: 30 2RF acetaminophen [Tylenol Extra Strength] 500 mg tablet 500 mg PO Q6H PRN (Reason: Pain) biotin [García Biotin] 10,000 mcg capsule PO multivitamin Tablet 1 tab PO DAILY Discharge Orders: Discharge Order (Routine); Ordered 09/30/22 Ordered By: Dave Huff Activity on Discharge: No heavy lifting Stand Alone Forms: Patient Portal Discharge page Care Plan Goals: weight loss Health Concerns: obesity Plan of Treatment: No tub baths, sex or returning to work until discussed at first post op appointment. No exercise, alcohol, tobacco or illegal drug use. Continue to use incentive spirometer hourly while awake. Walk in home for 5- 10 minutes every 2 hours during the first week. Continue phase 1 diet today and start phase 2 diet tomorrow morning. Follow all instructions in the bariatric handbook and call with any questions. 1. Please call your doctor or come back to the emergency room should any new symptoms arise. 2. You will receive a courtesy call from [facility] 24-48 hours after discharge. 3. Activity: abstain from alcohol, practice limited stair climbing, no bending, no driving, no exercise, no illicit substances, no lifting, no sex, no tub bath, no work. 4. Diet: continue as discussed with bariatric team.. 5. Dressing Change/Wound Care: Do not change or remove surgical dressings unless they are wet or soiled. 6. Call your doctor if: - Your temperature exceeds 101.5 F - You experience excessive pain or swelling - You have an unexpected reaction to medication - You have excessive bleeding - You experience continued vomiting/nausea - Your incision begins to separate - Your incision shows signs of infection such as increased redness, swelling, excessive pain, heat, or drainage (light blood or clear fluid is normal) 7. General instructions: No lifting greater than 5 lbs for the next 4 weeks[address] within 24 hours of taking narcotic pain medications. If you do not move your bowels in the next 2 days, please take milk of magnesia over the counter. Please follow the post op diet and do not advance your diet until you are seen in the office in about 2 weeks. Please walk around your home every hour or two to prevent blood clots from forming in your legs. You do not need to wake from sleeping to walk. Please sleep in a bed or couch to prevent kinking at the hips and knees. Please take your incentive spirometer (your lung cold mill inspector) home with you and use it for the next few days to prevent pneumonias. You may shower, no hot tubs, baths or swimming pools. Please call the office with any questions or concerns such as increasing abdominal pain, fever, chills, shortness of breath, chest pain, leg pain or swelling, or redness or drainage from your incisions. Do not hesitate to contact the office with any questions at . The patient's medical history has been reviewed and they are considered low risk for post op DVT and therefore DVT prophylaxis is not considered necessary. Travel after surgery was reviewed. The patient has not disclosed any travel plans during the first 30 days after surgery and they have been advised that within the first 30 days after surgery any bus, plane, train or car travel over 2 hours in duration is contraindicated due to the possibility of developing blood clots from immobility. Any travel, needs to include periods of ambulation of 10 minutes in duration every 2 hours. The patient was instructed to discuss any plans for travel during this period with their bariatric surgeon. Assessment: stable, post op sleeve gastrectomy
--- NOTE | 2022-09-29 14:51 | PHA.MEDREC ---
Pharmacy Consult ? Medication Reconciliation RN has completed the medication reconciliation. Pharmacy reviewed.
[2022-09-29 17:23] LABS: Hematocrit 37.3 % (37.0-47.0); Hemoglobin 12.5 g/dl (12.0-16.0)
[2022-09-29 17:37] LABS: Anion Gap 19 (12-20); Blood Urea Nitrogen 7 mg/dL (9-16); Calcium 9.7 mg/dL (8.4-10.2); Carbon Dioxide 26 mmol/L (22-29); Chloride 98 mmol/L (96-108); Creatinine Clr Calc Pharmacy 117.6; Estimated Glomerular Filt Rate > 60; Glucose Random 95 mg/dL (60-115); Sodium 140 mmol/L (135-145)
[2022-09-29] MEDS: Lactated Ringers 1,000 ML 100 ML IVCONT (18:13)
[2022-09-29] MEDS: Famotidine/PF 20 MG/2 ML VIAL IVPUSH (19:29)
[2022-09-29] MEDS: Metoclopramide HCl 10 MG/2 ML VIAL IVPUSH (19:29)
[2022-09-29] MEDS: Losartan Potassium 50 MG TABLET PO (19:29)
[2022-09-29] MEDS: 0.9 % Sodium Chloride Flush 3 ML SYRINGE IVFLUSH (19:29)
[2022-09-29] MEDS: Acetaminophen 1,000 MG/100 ML PIGGYBACK 400 MG IV (23:52)
[2022-09-30 03:37] VITALS: BP 121/63; PULSE 77; RESP 16; TEMP 36.1; O2SAT 97
[2022-09-30] MEDS: Lactated Ringers 1,000 ML 100 ML IVCONT (04:53)
[2022-09-30 05:37] LABS: MANUAL DIFF FLAG NO
[2022-09-30 05:41] LABS: Hematocrit 39.5 % (37.0-47.0); Hemoglobin 13.3 g/dl (12.0-16.0); Imm Gran Abs Auto 0.02 X10*3/uL (0.00-0.03); Imm Gran Pct Auto 0.3 % (0.0-0.4); Lymphocytes Absolute Auto 0.7 X10*3/uL (1.2-4.9); Lymphocytes Percent Auto 9.4 % (20-40); Mean Corpuscular HGB Conc 33.7 g/dl (31.0-35.0); Mean Corpuscular Hemoglobin 30.5 pg (27.0-33.0); Mean Corpuscular Volume 90.6 fL (80.0-98.0); Mean Platelet Volume 11.9 fL (9.4-12.3); Monocytes Absolute Auto 0.2 X10*3/uL (0.1-1.2); Monocytes Percent Auto 2.2 % (2-11); Neutrophils Absolute Auto 6.8 x10*3/uL (2.0-8.3); Neutrophils Percent Auto 88.1 % (45-73); Platelet Count 296 X10*3/uL (160-400); Red Blood Count 4.36 X10*6/uL (4.20-5.50); Red Cell Distribution Width 13.6 % (11.0-16.0); White Blood Count 7.7 X10*3/uL (4.8-10.8)
[2022-09-30 06:04] LABS: Anion Gap 23 (12-20); Blood Urea Nitrogen 7 mg/dL (9-16); Carbon Dioxide 21 mmol/L (22-29); Chloride 97 mmol/L (96-108); Creatinine Clr Calc Pharmacy 111.5; Estimated Glomerular Filt Rate > 60; Glucose Random 120 mg/dL (60-115); Potassium 3.6 mmol/L (3.3-5.1); Sodium 137 mmol/L (135-145)
[2022-09-30] MEDS: Acetaminophen 1,000 MG/100 ML PIGGYBACK 400 MG IV (06:09)
[2022-09-30] MEDS: Famotidine/PF 20 MG/2 ML VIAL IVPUSH (07:33)
[2022-09-30 07:37] VITALS: BP 120/64; PULSE 72; RESP 16; TEMP 36; O2SAT 96
--- NOTE | 2022-09-30 11:12 | MHC.CM.PN ---
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
[2022-09-30 11:37] VITALS: BP 121/68; PULSE 75; RESP 16; TEMP 36.7; O2SAT 99
[2022-09-30] MEDS: ondansetron HCL 4 MG/2 ML VIAL IVPUSH (11:40)
--- NOTE | 2022-09-30 13:55 | HO.POSTANES ---
Post Anesthesia Evaluation Post Anesthesia Evaluation Date of Service: 09/30/22 Vital Signs: Vital Signs Temp Pulse Resp BP Pulse Ox O2 Del Method 09/30/22 11:37 98.1 F 75 16 121/68 99 Room Air 09/30/22 07:37 96.8 F 72 16 120/64 96 Room Air 09/30/22 03:37 96.9 F 77 16 121/63 97 Room Air Anesthesia: General Endotracheal-GETA Mental Status: Awake Pain Control: Satisfactory Nausea/Vomiting: None Hydration: Adequate Anesthesia-Related Issues: No Anes. Related Issues
== END 2022-09-30 14:06 | disposition home or self-care (01) | DRG 403 ==
LOC: HO.SSSA 14:50 → HO.S3 14:51
PROVIDERS: Physician Assistant; Physician Assistant Surgical; Admitting Provider Surgery; PCP Internal Medicine; Visit Provider Surgery
PROC: 0DB64Z3 Excision of Stomach, Percutaneous Endoscopic Approach, Vertical (ICD-10-PCS; CPT 43845; principal; 2022-09-29 15:20)
DX: E66.01 Morbid (severe) obesity due to excess calories (principal); K74.00 Hepatic fibrosis, unspecified; G47.00 Insomnia, unspecified; K76.0 Fatty (change of) liver, not elsewhere classified; I10 Essential (primary) hypertension; M19.90 Unspecified osteoarthritis, unspecified site; K21.9 Gastro-esophageal reflux disease without esophagitis; Z68.34 Body mass index [BMI] 34.0-34.9, adult; Z20.822 Contact with and (suspected) exposure to COVID-19; Z79.899 Other long term (current) drug therapy
CPT/HCPCS: 36415; 80048; 85014; 85018; 85025; 86850; 86900; 86901; 87635; 88304; 88305; 88307; 88342; A4649; C9145; J0131; J1100; J1170; J1956; J2250; J2370; J2405; J2550; J2765; J2795; J3010

== ENCOUNTER → 2022-10-05 10:02 | Outpatient (BNVA) | payer OTHER, SELFPAY | PROVIDERS: PCP Internal Medicine; Visit Provider Physician Assistant Surgical | DX: Z98.84 Bariatric surgery status (principal) | CPT/HCPCS: 99212 ==

== ENCOUNTER 2022-10-28 08:30 | Outpatient (AMB) | payer OTHER, SELFPAY ==
[2022-10-28 08:20] VITALS: BMI 32.2
--- NOTE | 2022-10-28 08:20 | MHC.OFFVISWM ---
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 Presents for 1 month post op visit. Weight today is 212 pounds, with a BMI of 32.2. There has been a 54.4 pound weight loss,(initial weight 266.4 pounds) since starting the program on 06/09/22 reflecting a 20.4% total body weight loss and a weight loss of 15.5 pounds since surgery (operative weight 227.5 pounds) reflecting a 6.8% TBWL since surgery. No complaints of nausea, emesis, abdominal pain or reflux. Reports infrequent but normal bowel movements every 1-2 days and uses stool softeners regularly. Taking 12.5 of HCTZ intermittently. Today BP 129/89. Very rarely taking losartan. Present meal plan includes: Celebtrate 4:1 2 scoops x 2 celebrate 4:1 1 scoop x 1 zp bar Drinking 32-40 oz water ? Exercise routine includes: Treadmill speed 2.5 incline 2-8, 450-500 muriel 6-7 days per week. [facility] Medical History (Updated 10/02/22 @ 00:04 by Background Dafelicitas) BMI 34.0-34.9,adult DJD (degenerative joint disease) History of diverticulitis Hx of ectopic Hypertension Insomnia Morbid obesity PONV (postoperative nausea and vomiting) Thyroid nodule Surgical History Hx of cholecystectomy Hx of colonoscopy Hx of hysterectomy, total Family History Mother Hypertension Father Hypertension Sister No problems noted. Sister No problems noted. Sister No problems noted. Sister No problems noted. Sister Hypertension Stroke Brother No problems noted. Social History Household Members: Children Household Members Other:: lives with daughter Housing: House Are you a primary daycare assistant to a significant other at home: No Do you presently have visiting nurse or other home services: No Alcohol intake: current Alcohol intake frequency: holidays/special occasions only Patient Tobacco Use Status: Never used Tobacco service: No Assessment & Plan Assessment & Plan (1) S/P laparoscopic sleeve gastrectomy: Code(s): Z98.84 - Bariatric surgery status Plan: change meal plan slightly to 2 celebrate 4:1 2 scoops each 1 celebrate 4:1 1/2 scoop zp bar may run outside if she wishes may start lifting weights and abs in 2 weeks rtc 1 month Telehealth Telehealth Location of provider rendering services: practice address Location of patient: other Patient Identification confirmed using: Name, : Yes Telehealth method: video Patient verbally consented to treatment: Yes Patient verbally consented to billing insurance company: Yes Patient informed of any privacy concerns related to visit: Yes Minutes spent on Phone/Video with Pt.: 15 Coding Level of Care Code Global (04333) Diagnoses S/P laparoscopic sleeve gastrectomy Z98.84
== END 2022-10-28 08:57 | disposition home or self-care (01) ==
LOC: HO.HBS 08:39
PROVIDERS: PCP Internal Medicine; Visit Provider Physician Assistant Surgical
DX: E66.09 Other obesity due to excess calories (principal); Z68.32 Body mass index [BMI] 32.0-32.9, adult; Z90.3 Acquired absence of stomach [part of]; Z98.84 Bariatric surgery status
CPT/HCPCS: 99024

== ENCOUNTER → 2022-10-28 08:30 | Outpatient (BNVA) | payer OTHER, SELFPAY | PROVIDERS: PCP Internal Medicine; Visit Provider Physician Assistant Surgical ==

== ENCOUNTER 2022-12-20 14:54 | Outpatient (AMB) | payer OTHER, SELFPAY ==
--- NOTE | 2022-12-20 14:21 | A.OFFVIS_ITS ---
Intake VS Expanded 12/20/22 14:22 Height 5 ft 8 in Weight 201 lb 2 oz BMI 30.6 Intake Visit Reasons: VIDEO PO LSG 09/29/22 Affiliate Marketing Coordinator Required: No Allergies SODIUM PEN Allergy (Mild, Uncoded 09/29/22 13:10) Nausea Medication List - Last Reconciled 12/20/22 by BERTIN Hay hydrochlorothiazide 25 mg PO QAM 90 days losartan 50 mg PO DAILY HPI HPI Comments History of Present Illness Details This?a?57?yo female who is s/p LSG without hiatal hernia repair on?09/29/22. Presents for 2.5 month post op visit. Weight today is 201.2 pounds, with a BMI of 30.6. There has been a 65.2 pound weight loss,(initial weight 266.4 pounds) since starting the program on 06/09/22 reflecting a 24.4% total body weight loss and a weight loss of 26.3 pounds since surgery (operative weight 227.5 pounds) reflecting a 11.5% TBWL since surgery. No complaints of nausea, emesis, abdominal pain or reflux. Reports infrequent but normal bowel movements every 1-2 days and uses stool softeners regularly. Taking 12.5 of HCTZ intermittently. Today BP 129/89. Very rarely taking losartan. She states she would like to increase food. Present meal plan includes: Celebrate 4 in 1 1 scoops x 2 celebrate 4 in 1 1/2 scoop x 1 zp bar meal 4 forks protein and 4 forks veg Drinking 32-40 oz water ? Exercise routine includes: Treadmill speed 2.5 incline 4-10, 2500 muriel per week. [facility] Medical History (Updated 10/02/22 @ 00:04 by Background Daemon) BMI 34.0-34.9,adult Hx of ectopic PONV (postoperative nausea and vomiting) History of diverticulitis Thyroid nodule Insomnia DJD (degenerative joint disease) Hypertension Morbid obesity Surgical History Hx of cholecystectomy Hx of colonoscopy Hx of hysterectomy, total Family History Mother Hypertension Father Hypertension Sister No problems noted. Sister No problems noted. Sister No problems noted. Sister No problems noted. Sister Hypertension Stroke Brother No problems noted. Social History Household Members: Children Household Members Other:: lives with daughter Housing: House Are you a primary career development manager to a significant other at home: No Do you presently have visiting nurse or other home services: No Alcohol intake: current Alcohol intake frequency: holidays/special occasions only Patient Tobacco Use Status: Never used Tobacco service: No Assessment & Plan Assessment & Plan (1) S/P laparoscopic sleeve gastrectomy: Code(s): Z98.84 - Bariatric surgery status Plan: change meal plan: Celebrate 4 in 1 2 scoops x 1 meal 4 forks protein and 4 forks veg zp bar meal 4 forks protein and 4 forks veg rtc 6 weeks Coding Level of Care Code Global (79179) Diagnoses S/P laparoscopic sleeve gastrectomy Z98.84
[2022-12-20 14:22] VITALS: BMI 30.6
== END 2022-12-20 14:57 | disposition home or self-care (01) ==
LOC: HO.HBS 14:54
PROVIDERS: PCP Internal Medicine; Visit Provider Physician Assistant Surgical
DX: E66.9 Obesity, unspecified (principal); Z68.30 Body mass index [BMI] 30.0-30.9, adult; Z90.3 Acquired absence of stomach [part of]; Z98.84 Bariatric surgery status
CPT/HCPCS: 99024

== ENCOUNTER → 2022-12-20 14:54 | Outpatient (BNVA) | payer OTHER, SELFPAY | PROVIDERS: PCP Internal Medicine; Visit Provider Physician Assistant Surgical ==

== ENCOUNTER 2023-02-02 08:39 | Outpatient (AMB) | payer OTHER, SELFPAY ==
--- NOTE | 2023-02-02 08:42 | A.OFFVIS_ITS ---
Intake VS Expanded 02/02/23 08:50 BP 118/65 Blood Pressure Location Rt brachial Blood Pressure Position Sitting Pulse 72 Pulse Source Pulse Oximeter Temp 97.0 F Temperature Source Temporal Artery Scan Pulse Oximetry 97 Oxygen Delivery Method Room Air Height 5 ft 8 in Weight 195 lb 6.4 oz BMI 29.7 Body Fat % 43.8 Body Fat Mass 85.6 Fat Free Mass 109.8 Visceral Fat Rating 10.0 Body Water % 40.0 Body Water Mass 78.0 Muscle Mass/Score 104.2 Basal Metabolic Rate/Score 1,530 Intake Visit Reasons: (OV) PO LSG 09/29/22 Telecommunication Tower Technician Required: No Allergies SODIUM PEN Allergy (Mild, Uncoded 09/29/22 13:10) Nausea Medication List - Last Reconciled 02/02/23 by BERTIN Hay hydrochlorothiazide 25 mg PO QAM 90 days losartan 50 mg PO DAILY [multivitamin PO] HPI HPI Comments History of Present Illness Details This?a?57?yo female who is s/p LSG without hiatal hernia repair on?09/29/22. Presents for 4 month post op visit. Weight today is 195.4pounds, with a BMI of 29.7. There has been a 71 pound weight loss,(initial weight 266.4 pounds) since starting the program on 06/09/22 reflecting a 26.6% total body weight loss and a weight loss of 32.1 pounds since surgery (operative weight 227.5 pounds) reflecting a 14.1% TBWL since surgery. No complaints of nausea, emesis, abdominal pain or reflux. Reports infrequent but normal bowel movements every 1-2 days and uses stool softeners regularly. She states that she is doing well overall however is complaining of excess skin of bilateral upper arms. This has impacted her activities of daily living in the sense that she has to wear oversized garments and she feels as though the excess skin is quite heavy on her arms and causes discomfort with arm activity such as brushing her hair or washing her hair. Taking 12.5 of HCTZ intermittently. Today BP 1teens-120s/60s-70s. Very rarely taking losartan. Her meal plan was changed to [address] Calivn. She is able and willing to maintain the below meal plan. Present meal plan includes: Celebrate 4 in 1, 2 scoops x 1 zp bar zp bar meal 4 forks protein and 4 forks veg Drinking 16 oz water 48 oz coffee daily ? Exercise routine includes: none in the last 2 weeks due to helping mom move into home in [place] Treadmill speed 2.5 incline 4-10, 2500 muriel per week. [facility] Medical History (Updated 02/02/23 @ 09:10 by BERTIN Hay) BMI 34.0-34.9,adult Hx of ectopic PONV (postoperative nausea and vomiting) History of diverticulitis Thyroid nodule Insomnia DJD (degenerative joint disease) Hypertension Morbid obesity Surgical History Hx of cholecystectomy Hx of colonoscopy Hx of hysterectomy, total Family History Mother Hypertension Father Hypertension Sister No problems noted. Sister No problems noted. Sister No problems noted. Sister No problems noted. Sister Hypertension Stroke Brother No problems noted. Social History Household Members: Children Household Members Other:: lives with daughter Housing: House Are you a primary neonatal intensive care unit nurse to a significant other at home: No Do you presently have visiting nurse or other home services: No Alcohol intake: current Alcohol intake frequency: holidays/special occasions only Patient Tobacco Use Status: Never used Tobacco service: No Review of Systems Const All systems reviewed & are unremarkable except as noted in HPI and below Physical Exam Const General: healthy appearing and no acute distress Resp Effort & Inspection: normal respiratory effort Auscultation: clear to auscultation bilaterally Cardio Rate: regular rate Rhythm: regular rhythm GI Auscultation: normal bowel sounds Skin Other: More significant excess skin with laxity of bilateral arms Extrem General: Yes normal to inspection Assessment & Plan Assessment & Plan (1) Overweight (BMI 25.0-29.9): Code(s): E66.3 - Overweight Plan: Continue meal plan as outlined by Dr. Dumont Continue to monitor blood pressure as she is doing. She is intermittently taking half tab of hydrochlorothiazide and losartan. Resume exercise as she had been doing previously. Return to clinic for 6 month follow-up. (2) Excess skin: Code(s): L98.7 - Excessive and redundant skin and subcutaneous tissue Plan: Likely is going to require medically necessary bilateral brachioplasty due to excess skin. We discussed the need for stable, healthy weight. She will continue her weight loss journey and alert the office to any changes in her condition requiring prescription for rashes or any increase in symptoms due to excess skin of her bilateral upper extremities. Coding Level of Care Code Est Pt Level 3 (62191) Diagnoses Overweight (BMI 25.0-29.9) E66.3 Excess skin L98.7
[2023-02-02 08:50] VITALS: BP 118/65; PULSE 72; TEMP 36.1; O2SAT 97; BMI 29.7
== END 2023-02-02 09:12 | disposition home or self-care (01) ==
PROVIDERS: PCP Internal Medicine; Visit Provider Physician Assistant Surgical
DX: E66.3 Overweight (principal); Z68.29 Body mass index [BMI] 29.0-29.9, adult; L98.7 Excessive and redundant skin and subcutaneous tissue; Z90.3 Acquired absence of stomach [part of]; Z98.84 Bariatric surgery status
CPT/HCPCS: 99213

== ENCOUNTER → 2023-02-02 08:39 | Outpatient (BNVA) | payer OTHER, SELFPAY | PROVIDERS: PCP Internal Medicine; Visit Provider Physician Assistant Surgical | DX: E66.3 Overweight (principal); L98.7 Excessive and redundant skin and subcutaneous tissue; Z68.29 Body mass index [BMI] 29.0-29.9, adult | CPT/HCPCS: 99212 ==

== ENCOUNTER 2023-03-30 08:04 | Outpatient (REF) | payer OTHER, SELFPAY ==
[2023-03-30 08:58] LABS: MANUAL DIFF FLAG NO
[2023-03-30 09:09] LABS: Basophils Percent Auto 0.5 % (0-2); Eosinophils Absolute Auto 0.1 X10*3/uL (0.0-0.4); Eosinophils Percent Auto 1.1 % (0-4); Hematocrit 41.4 % (37.0-47.0); Hemoglobin 14.2 g/dl (12.0-16.0); Imm Gran Abs Auto 0.01 X10*3/uL (0.00-0.03); Imm Gran Pct Auto 0.2 % (0.0-0.4); Lymphocytes Absolute Auto 2.3 X10*3/uL (1.2-4.9); Lymphocytes Percent Auto 39.4 % (20-40); Mean Corpuscular HGB Conc 34.3 g/dl (31.0-35.0); Mean Corpuscular Hemoglobin 30.8 pg (27.0-33.0); Mean Corpuscular Volume 89.8 fL (80.0-98.0); Mean Platelet Volume 11.3 fL (9.4-12.3); Monocytes Absolute Auto 0.6 X10*3/uL (0.1-1.2); Monocytes Percent Auto 9.8 % (2-11); Neutrophils Absolute Auto 2.8 x10*3/uL (2.0-8.3); Platelet Count 313 X10*3/uL (160-400); Red Blood Count 4.61 X10*6/uL (4.20-5.50); Red Cell Distribution Width 13.2 % (11.0-16.0); White Blood Count 5.7 X10*3/uL (4.8-10.8)
[2023-03-30 09:21] LABS: Estimated Average Glucose 100 mg/dL; Hemoglobin A1c % 5.1 % (<6.0)
[2023-03-30 09:49] LABS: Alanine Aminotransferase 17 U/L (0-31); Albumin Level 4.4 g/dL (3.5-5.0); Alkaline Phosphatase 57 U/L (39-117); Anion Gap 15 (12-20); Aspartate Amino Transferase 23 U/L (5-31); Bilirubin Total 0.8 mg/dL (0.0-1.0); Blood Urea Nitrogen 17 mg/dL (9-16); Calcium 10.3 mg/dL (8.4-10.2); Carbon Dioxide 35 mmol/L (22-29); Chloride 96 mmol/L (96-108); Cholesterol 252 mg/dL (<200); Estimated Glomerular Filt Rate > 60; Glucose Random 96 mg/dL (60-115); HDL Cholesterol 77 mg/dL (>40); Iron 85 mcg/dL (30-160); LDL Cholesterol Calculated 159 mg/dL (<100); Percent Iron Saturation 30 % (15-50); Sodium 143 mmol/L (135-145); Total Iron Binding Capacity 284 mcg/dL (228-428); Total Protein 7.7 g/dL (6.5-8.0); Triglycerides 81 mg/dL (<150); Unsaturated Iron Binding 199 ug/dL
[2023-03-30 10:09] LABS: Ferritin 150 ng/mL (10-250); Insulin 3 uU/mL (2-29); TSH reflex Free T4 0.69 uIU/mL (0.32-4.0); Vitamin D 25-OH Total 93.3 ng/mL (>30)
[2023-03-30 10:10] LABS: Folate 15.9 ng/mL (> or = 4.0); Vitamin B12 1044 pg/mL (200-900)
[2023-04-03 09:49] LABS: Vitamin B1 12 nmol/L (8-30)
[2023-04-06 10:49] LABS: Vitamin A 55 mcg/dL (38-98)
[2023-04-06 12:23] LABS: Zinc 75 mcg/dL (60-130)
== END 2023-03-30 08:05 | disposition home or self-care (01) ==
LOC: HO.LAB 08:04
PROVIDERS: PCP Internal Medicine; Visit Provider Physician Assistant Surgical
DX: E66.3 Overweight (principal); L98.7 Excessive and redundant skin and subcutaneous tissue; I10 Essential (primary) hypertension; Z71.3 Dietary counseling and surveillance; Z98.84 Bariatric surgery status; Z79.899 Other long term (current) drug therapy
CPT/HCPCS: 36415; 80053; 80061; 82306; 82607; 82728; 82746; 83036; 83525; 83540; 84425; 84443; 84590; 84630; 85025; 86140; 99212

== ENCOUNTER 2023-03-30 08:04 | Outpatient (AMB) | payer OTHER, SELFPAY ==
--- NOTE | 2023-03-30 08:14 | A.OFFVIS_ITS ---
Intake VS Expanded 03/30/23 08:22 BP 133/78 Blood Pressure Location Rt brachial Blood Pressure Position Sitting Pulse 89 Pulse Source Pulse Oximeter Temp 96.3 F L Temperature Source Tympanic Pulse Oximetry 99 Oxygen Delivery Method Room Air Height 5 ft 8 in Weight 183 lb 3.2 oz BMI 27.9 Body Fat % 42.3 Body Fat Mass 77.4 Fat Free Mass 105.6 Visceral Fat Rating 9.0 Body Water % 41.0 Body Water Mass 75.0 Muscle Mass/Score 100.4 Basal Metabolic Rate/Score 1,466 Intake Visit Reasons: (OV) PO LSG 09/29/22 Post Manager Required: No Allergies SODIUM PEN Allergy (Mild, Uncoded 03/30/23 08:17) Nausea Medication List - Last Reconciled 03/30/23 by BERTIN Hay hydrochlorothiazide 25 mg PO QAM 90 days losartan 50 mg PO DAILY [multivitamin PO] HPI HPI Comments History of Present Illness Details This?a?57?yo female who is s/p LSG without hiatal hernia repair on?09/29/22. Presents for 6 month post op visit. Weight today is 183.2 pounds, with a BMI of 27.8. There has been a 83.2 pound weight loss,(initial weight 266.4 pounds) since starting the program on 06/09/22 reflecting a 31.2% total body weight loss and a weight loss of 44.3 pounds since surgery (operative weight 227.5 pounds) reflecting a 19.4% TBWL since surgery. No complaints of nausea, emesis, abdominal pain or reflux. Reports infrequent but normal bowel movements every 1-2 days and uses stool softeners regularly. She states that she is doing well overall however is complaining of excess skin of bilateral upper arms, medial thighs and abdomen. This has impacted her activities of daily living in the sense that she has to wear oversized garments and she feels as though the excess skin is quite heavy on her arms and causes discomfort with arm activity such as brushing her hair or washing her hair. She additionally states that the excess skin at the upper medial thighs rub together during any activity including walking and with all exercise, causing discomfort and irritation. Taking 12.5 of HCTZ intermittently. Today BP 133/78. Very rarely taking losartan. Her meal plan was changed to [address] Calvin. She is able and willing to maintain the below meal plan. Present meal plan includes: Celebrate 4 in 1, 2 scoops x 1 w almond milk zp bar zp bar meal 4 forks protein and 4 forks veg Drinking 32 oz water 36 oz coffee daily ? Exercise routine includes: Treadmill speed 2.5 incline 4-10, 2500 muriel per week. Any post op complications: none JOSE: never DM: never HTN: improved Hyperlipidemia: never GERD:?0-5 scale ??0 = no symptoms ??1 = symptoms noticeable but not bothersome 2 =symptoms bothersome but not daily ? 3 = symptoms bothersome and daily 4 = symptoms affect daily activities 5 = symptoms are incapacitating, unable to do daily activities ? How bad is the heartburn: 2 ? Heartburn while lying down: 0 ? Heartburn when standing up: 0 ? Heartburn after meals: 2 ? Does heartburn change your diet: 0 ? Does heartburn wake you up from sleep: 0 ? Do you have difficulty swallowin ? Do you have pain with swallowin ? If you take medicine for your reflux, does this affect your daily life: 0 Satisfaction with present condition - satisfied or not satisfied: satisfied [facility] Medical History BMI 34.0-34.9,adult Hx of ectopic PONV (postoperative nausea and vomiting) History of diverticulitis Thyroid nodule Insomnia DJD (degenerative joint disease) Hypertension Morbid obesity Surgical History Hx of cholecystectomy Hx of colonoscopy Hx of hysterectomy, total Family History Mother Hypertension Father Hypertension Sister No problems noted. Sister No problems noted. Sister No problems noted. Sister No problems noted. Sister Hypertension Stroke Brother No problems noted. Social History Household Members: Children Household Members Other:: lives with daughter Housing: House Are you a primary customer care representative to a significant other at home: No Do you presently have visiting nurse or other home services: No Alcohol intake: current Alcohol intake frequency: holidays/special occasions only Patient Tobacco Use Status: Never used Tobacco service: No Review of Systems Const All systems reviewed & are unremarkable except as noted in HPI and below Physical Exam Const General: cooperative and no acute distress Orientation/consciousness: patient oriented x3 Resp Effort & Inspection: normal respiratory effort Auscultation: clear to auscultation bilaterally Cardio Rate: regular rate Rhythm: regular rhythm GI Inspection: Yes normal to inspection and Yes incision (well healed) Palpation (GI): Soft to palpation and no masses Skin Other: Excess skin noted of bilateral arms, medial thighs and pannus, grade 1-2 without active rash Neuro General: patient oriented x3 Assessment & Plan Assessment & Plan (1) Overweight (BMI 25.0-29.9): Code(s): E66.3 - Overweight Plan: Check six-month postop labs. Encouraged to continue exercise at the gym. She wishes to continue her current meal plan. Return to clinic in 4-5 weeks. (2) Excess skin: Code(s): L98.7 - Excessive and redundant skin and subcutaneous tissue Plan: Patient will continue to monitor closely for any rashes, contacting the office should she develop any. She will continue to wear clothing as a barrier between skin surface is to prevent chafing. We discussed the possibility of medically necessary skin removal surgery based on her current skin laxity and interference with activities of daily living. We discussed once she has achieved a stable weight and is at least 1 year postoperative, we will be able to potentially submit to her insurance for approval for medically necessary skin removal surgery. She is in agreement with this plan. (3) Hypertension: Code(s): I10 - Essential (primary) hypertension Plan: Blood pressure has significantly improved. She takes hydrochlorothiazide intermittently and rarely losartan based upon her blood pressure readings which she is doing on a daily basis. She is acutely aware of what she is eating and occasionally has something that has additional salt in it causing elevated blood pressure. Continue to monitor closely. Orders: Orders Hemoglobin A1c Today E66.3 - Overweight, L98.7 - Excessive and redundant skin and subcutaneous tissue Complete Blood Count Auto Diff Today E66.3 - Overweight, L98.7 - Excessive and redundant skin and subcutaneous tissue Lipid Panel Today E66.3 - Overweight, L98.7 - Excessive and redundant skin and subcutaneous tissue IRON PROFILE Today E66.3 - Overweight, L98.7 - Excessive and redundant skin and subcutaneous tissue C Reactive Protein Today E66.3 - Overweight, L98.7 - Excessive and redundant skin and subcutaneous tissue Vitamin A Today E66.3 - Overweight, L98.7 - Excessive and redundant skin and subcutaneous tissue TSH reflex Free T4 Today E66.3 - Overweight, L98.7 - Excessive and redundant skin and subcutaneous tissue Insulin Today E66.3 - Overweight, L98.7 - Excessive and redundant skin and subcutaneous tissue Comprehensive Met. Panel Today E66.3 - Overweight, L98.7 - Excessive and redundant skin and subcutaneous tissue Vitamin B12 and Folate Today E66.3 - Overweight, L98.7 - Excessive and redundant skin and subcutaneous tissue Zinc Today E66.3 - Overweight, L98.7 - Excessive and redundant skin and subcutaneous tissue Vitamin B1 Today E66.3 - Overweight, L98.7 - Excessive and redundant skin and subcutaneous tissue Ferritin Today E66.3 - Overweight, L98.7 - Excessive and redundant skin and subcutaneous tissue Vitamin D 25-OH Total Today E66.3 - Overweight, L98.7 - Excessive and redundant skin and subcutaneous tissue Coding Level of Care Code Est Pt Level 4 (24256) Diagnoses Overweight (BMI 25.0-29.9) E66.3 Excess skin L98.7 Hypertension I10 Time Spent (min) 40
[2023-03-30 08:22] VITALS: BP 133/78; PULSE 89; TEMP 35.7; O2SAT 99; BMI 27.9
== END 2023-03-30 08:41 | disposition home or self-care (01) ==
PROVIDERS: PCP Internal Medicine; Visit Provider Physician Assistant Surgical
DX: E66.3 Overweight (principal); Z68.27 Body mass index [BMI] 27.0-27.9, adult; L98.7 Excessive and redundant skin and subcutaneous tissue; I10 Essential (primary) hypertension
CPT/HCPCS: 99214

== ENCOUNTER 2023-05-18 08:31 | Outpatient (AMB) | payer OTHER, SELFPAY ==
--- NOTE | 2023-05-18 08:26 | MHC.OFFVISWM ---
Intake VS Expanded 05/18/23 08:27 Height 5 ft 8 in Weight 176 lb 6.4 oz BMI 26.8 Body Fat % 3.5 Body Fat Mass 69.8 Fat Free Mass 106.6 Visceral Fat Rating 7 Body Water % 60.4 Body Water Mass 106.6 Muscle Mass/Score 68.4 Basal Metabolic Rate/Score 1,453 Intake Visit Reasons: (TV) PO LSG 09/29/22 Enterprise Application Developer Required: No Allergies SODIUM PEN Allergy (Mild, Uncoded 03/30/23 08:17) Nausea Medication List - Last Reconciled 05/18/23 by BERTIN Hay hydrochlorothiazide 12.5 mg PO QAM [multivitamin PO] HPI HPI Comments History of Present Illness Details This?a?57?yo female who is s/p LSG without hiatal hernia repair on?09/29/22. Presents for 8 month post op visit. Weight today is 176.4 pounds, with a BMI of 26.8. There has been a 90 pound weight loss,(initial weight 266.4 pounds) since starting the program on 06/09/22 reflecting a 33.7% total body weight loss and a weight loss of 51.1 pounds since surgery (operative weight 227.5 pounds) reflecting a 22.4% TBWL since surgery. No complaints of nausea, emesis, abdominal pain or reflux. Reports infrequent but normal bowel movements every 1-2 days and uses stool softeners regularly. She states that she is doing well overall however is complaining of excess skin of bilateral upper arms, medial thighs and abdomen. This has impacted her activities of daily living in the sense that she has to wear oversized garments and she feels as though the excess skin is quite heavy on her arms and causes discomfort with arm activity such as brushing her hair or washing her hair. She additionally states that the excess skin at the upper medial thighs rub together during any activity including walking and with all exercise, causing discomfort and irritation. When she buys appropriate size clothing, due to the excess skin, it is tight in the thigh but very loose in the waist and this causes significant uncomfortableness to her legs. She also has had chafing of her thighs requiring extra clothing. He rarms also have significant excess skin , also causing rubbing and discomfort with activity. She has to constantly wear extra layers of clothing to keep it all together and she is concerned about what will happen when the warmer weather arrives. She feels with discipline and accountability is the bañuelos to success. She talked with her PCP and BP meds were discussed, taking HCTZ 12.5 daily. Avg BP 120s/80s. Very rarely taking losartan. Her meal plan was changed to [address] Calvin. She is able and willing to maintain the below meal plan. Present meal plan includes: Celebrate 4 in 1, 2 scoops x 1 w almond milk zp bar zp bar meal 4 forks protein and 4 forks veg Drinking 32 oz water 24-36 oz coffee daily, 12 oz decaf tea ? Exercise routine includes: Treadmill speed 2.5 incline 4-10, 2500 muriel per week. [facility] Medical History BMI 34.0-34.9,adult Hx of ectopic PONV (postoperative nausea and vomiting) History of diverticulitis Thyroid nodule Insomnia DJD (degenerative joint disease) Hypertension Morbid obesity Surgical History Hx of cholecystectomy Hx of colonoscopy Hx of hysterectomy, total Family History Mother Hypertension Father Hypertension Sister No problems noted. Sister No problems noted. Sister No problems noted. Sister No problems noted. Sister Hypertension Stroke Brother No problems noted. Social History Household Members: Children Household Members Other:: lives with daughter Housing: House Are you a primary health care technician to a significant other at home: No Do you presently have visiting nurse or other home services: No Alcohol intake: current Alcohol intake frequency: holidays/special occasions only Patient Tobacco Use Status: Never used Tobacco service: No Review of Systems Const All systems reviewed & are unremarkable except as noted in HPI and below Assessment & Plan Assessment & Plan (1) Overweight (BMI 25.0-29.9): Code(s): E66.3 - Overweight Plan: Is to continue current meal plan. She has made excellent progress. We will have her return to the office in approximately a month. Text with any questions or concerns. (2) Excess skin: Code(s): L98.7 - Excessive and redundant skin and subcutaneous tissue Plan: Patient has excess skin of her thighs, arms and abdomen. Her arms and thighs have been causing her the most discomfort followed by her abdomen. She has to wear multiple layers of clothing to prevent chafing and discomfort. She has pain with upper arm activities such as brushing her hair or applying shampoo. Her legs cause her discomfort with exercise as well as she experiences chafing if she does not have additional clothing garments on. She will be appropriate for medically necessary skin removal surgery. We will continue to follow closely. Should she develop any rashes as I expect she may when the warmer weather arrives, she will call the office right away. Telehealth Telehealth Location of provider rendering services: practice address Location of patient: other Patient Identification confirmed using: Name, : Yes Telehealth method: voice only Patient verbally consented to treatment: Yes Patient verbally consented to billing insurance company: Yes Patient informed of any privacy concerns related to visit: Yes Minutes spent on Phone/Video with Pt.: 20 Coding Level of Care Code Tele Est Pt Level 3 (63137) Diagnoses Overweight (BMI 25.0-29.9) E66.3 Excess skin L98.7 Time Spent (min) 25
[2023-05-18 08:27] VITALS: BMI 26.8
== END 2023-05-18 08:57 | disposition home or self-care (01) ==
LOC: HO.HBS 08:31
PROVIDERS: PCP Internal Medicine; Visit Provider Physician Assistant Surgical
DX: E66.3 Overweight (principal); L98.7 Excessive and redundant skin and subcutaneous tissue
CPT/HCPCS: 99213

== ENCOUNTER → 2023-05-18 08:31 | Outpatient (BNVA) | payer OTHER, SELFPAY | PROVIDERS: PCP Internal Medicine; Visit Provider Physician Assistant Surgical ==

== ENCOUNTER 2023-07-12 15:38 | Outpatient (AMB) | payer OTHER, SELFPAY ==
[2023-07-12 08:36] VITALS: BMI 25.6
--- NOTE | 2023-07-12 08:36 | MHC.OFFVISWM ---
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 Presents for 9 month post op visit. Weight today is 168.2 pounds, with a BMI of 25.6. There has been a 98.2 pound weight loss,(initial weight 266.4 pounds) since starting the program on 06/09/22 reflecting a 36.8% total body weight loss and a weight loss of 59.3 pounds since surgery (operative weight 227.5 pounds) reflecting a 26% TBWL since surgery. No complaints of nausea, emesis, abdominal pain or reflux. Reports infrequent but normal bowel movements every 1-2 days and uses stool softeners regularly. She states that she is doing well overall however is complaining of excess skin of bilateral upper arms, medial thighs and abdomen. This has impacted her activities of daily living in the sense that she has to wear oversized garments and she feels as though the excess skin is quite heavy on her arms and causes discomfort with arm activity such as brushing her hair or washing her hair. She additionally states that the excess skin at the upper medial thighs rub together during any activity including walking and with all exercise, causing discomfort and irritation. When she buys appropriate size clothing, due to the excess skin, it is tight in the thigh but very loose in the waist and this causes significant uncomfortableness to her legs. She also has had chafing of her thighs requiring extra clothing. Her arms also have significant excess skin , also causing rubbing and discomfort with activity. She has to constantly wear extra layers of clothing to keep it all together and she is concerned about what will happen when the warmer weather arrives. She feels with discipline and accountability is the bañuelos to success. She talked with her PCP and BP meds were discussed, taking HCTZ 12.5 daily. Avg BP 1 teens-120s/80s. Now back on her losartan 25 mg daily by her PCP. Her meal plan was changed to [address] Calvin. She is able and willing to maintain the below meal plan. She feels great and would like to eat more food. Present meal plan includes: Celebrate 4 in 1, 2 scoops x 1 w almond milk zp bar zp bar meal 4 forks protein and 4 forks veg Drinking 32 oz water 24 oz coffee daily, 12 oz decaf tea ? Exercise routine includes: Treadmill speed 2.5 incline 4-10, 2500 muriel per week. [facility] Medical History BMI 34.0-34.9,adult Hx of ectopic PONV (postoperative nausea and vomiting) History of diverticulitis Thyroid nodule Insomnia DJD (degenerative joint disease) Hypertension Morbid obesity Surgical History Hx of cholecystectomy Hx of colonoscopy Hx of hysterectomy, total Family History Mother Hypertension Father Hypertension Sister No problems noted. Sister No problems noted. Sister No problems noted. Sister No problems noted. Sister Hypertension Stroke Brother No problems noted. Social History Household Members: Children Household Members Other:: lives with daughter Housing: House Are you a primary resident care spec to a significant other at home: No Do you presently have visiting nurse or other home services: No Alcohol intake: current Alcohol intake frequency: holidays/special occasions only Patient Tobacco Use Status: Never used Tobacco service: No Assessment & Plan Assessment & Plan (1) S/P laparoscopic sleeve gastrectomy: Code(s): Z98.84 - Bariatric surgery status Plan: Patient will continue her current meal plan although she states she would like to increase her food portion. She states that she would like to have Dr. Huff and adjust her meal plan. She will text him tomorrow for any recommendations. We will have a follow-up phone call in approximately 5 weeks and an in-person appointment end of September for her 1 year follow-up. Overall, she is very satisfied with her progress. She was congratulated on her extensive weight loss and commitment to exercise. Telehealth Telehealth Location of provider rendering services: practice address Location of patient: other Patient Identification confirmed using: Name, : Yes Telehealth method: voice only Patient verbally consented to treatment: Yes Patient verbally consented to billing insurance company: Yes Patient informed of any privacy concerns related to visit: Yes Minutes spent on Phone/Video with Pt.: 20 Coding Level of Care Code Tele Est Pt Level 3 (58565) Diagnoses S/P laparoscopic sleeve gastrectomy Z98.84 Time Spent (min) 20
== END 2023-07-12 15:49 | disposition home or self-care (01) ==
LOC: HO.HBS 15:38
PROVIDERS: PCP Internal Medicine; Visit Provider Physician Assistant Surgical
DX: E66.3 Overweight (principal); Z68.25 Body mass index [BMI] 25.0-25.9, adult; Z90.3 Acquired absence of stomach [part of]; Z98.84 Bariatric surgery status
CPT/HCPCS: 99213

== ENCOUNTER → 2023-07-12 15:38 | Outpatient (BNVA) | payer OTHER, SELFPAY | PROVIDERS: PCP Internal Medicine; Visit Provider Physician Assistant Surgical ==

== ENCOUNTER 2023-08-17 08:30 | Outpatient (AMB) | payer OTHER, SELFPAY ==
--- NOTE | 2023-08-17 08:30 | MHC.OFFVISWM ---
VS Expanded 08/17/23 08:32 Height 5 ft 8 in Weight 163 lb BMI 24.8 Body Fat % 37.1 Body Fat Mass 60.6 Fat Free Mass 102.4 Visceral Fat Rating 6 Body Water % 59.8 Body Water Mass 97.4 Muscle Mass/Score 65.6 Basal Metabolic Rate/Score 1,396 Intake Visit Reasons: (Tv) PO LSG 09/29/22 Allergies SODIUM PEN Allergy (Mild, Uncoded 03/30/23 08:17) Nausea HPI Comments Details: This?a?58?yo female who is s/p LSG without hiatal hernia repair on?09/29/22. Presents for 11 month post op visit. Weight today is 163 pounds, with a BMI of 24.8. There has been a 103.4 pound weight loss,(initial weight 266.4 pounds) since starting the program on 06/09/22 reflecting a 38.8% total body weight loss and a weight loss of 64.5 pounds since surgery (operative weight 227.5 pounds) reflecting a 28.3% TBWL since surgery. No complaints of nausea, emesis, abdominal pain or reflux. Reports infrequent but normal bowel movements every 1-2 days and uses stool softeners regularly. She states that she is doing well overall however is complaining of excess skin of bilateral upper arms, medial thighs and abdomen. This has impacted her activities of daily living in the sense that she has to wear oversized garments and she feels as though the excess skin is quite heavy on her arms and causes discomfort with arm activity such as brushing her hair or washing her hair. She additionally states that the excess skin at the upper medial thighs rub together during any activity including walking and with all exercise, causing discomfort and irritation. When she buys appropriate size clothing, due to the excess skin, it is tight in the thigh but very loose in the waist and this causes significant uncomfortableness to her legs. She also has had chafing of her thighs requiring extra clothing. Her arms also have significant excess skin , also causing rubbing and discomfort with activity. She has to constantly wear extra layers of clothing to keep it all together and she is concerned about what will happen when the warmer weather arrives. She feels with discipline and accountability is the bañuelos to success. She talked with her PCP and BP meds were discussed, taking HCTZ 12.5 daily. She has had only 4 days where SBP 120 or higher. Avg BP 1 teens-120s/80s. Now back on her losartan 25 mg daily by her PCP. Her meal plan was changed to [address] Calvin. She is able and willing to maintain the below meal plan. She feels great and would like to eat more food. Present meal plan includes: Celebrate 4 in 1, 2 scoops x 1 w almond milk zp bar zp bar meal 4 forks protein and 4 forks veg Drinking 32 oz water 24 oz coffee daily, 12 oz decaf tea ? Exercise routine includes: Treadmill speed 2.5 incline 4-10, 2500 muriel per week. [facility] Medical History BMI 34.0-34.9,adult Hx of ectopic PONV (postoperative nausea and vomiting) History of diverticulitis Thyroid nodule Insomnia DJD (degenerative joint disease) Hypertension Morbid obesity Surgical History Hx of cholecystectomy Hx of colonoscopy Hx of hysterectomy, total Family History Mother Hypertension Father Hypertension Sister No problems noted. Sister No problems noted. Sister No problems noted. Sister No problems noted. Sister Hypertension Stroke Brother No problems noted. Social History Household Members: Children Household Members Other:: lives with daughter Housing: House Are you a primary early breastfeeding care specialist to a significant other at home: No Do you presently have visiting nurse or other home services: No Alcohol intake: current Alcohol intake frequency: holidays/special occasions only Patient Tobacco Use Status: Never used Tobacco service: No Telehealth Telehealth Telehealth Platform: Telephone Location of provider rendering services: other Location of patient: address on file Patient Identification confirmed using: Name, : Yes Telehealth method: voice only Patient verbally consented to treatment: Yes Patient verbally consented to billing insurance company: Yes Patient informed of any privacy concerns related to visit: Yes Minutes spent on Phone/Video with Pt.: 18 Assessment & Plan Assessment & Plan (1) S/P laparoscopic sleeve gastrectomy: Code(s): Z98.84 - Bariatric surgery status Category: Surgical Plan: Making excellent progress. Achieved a healthy weight. Wishes to change her meal plan: Celebrate 4 in 1, 2 scoops x 1 w almond milk or 2 zp bars over 4 hrs meal 6 forks protein and 6 forks veg meal 7 forks protein and 7 forks veg Plan to return for an in office appointment the end of September.
[2023-08-17 08:32] VITALS: BMI 24.8
== END 2023-08-17 08:55 | disposition home or self-care (01) ==
LOC: HO.HBS 08:37
PROVIDERS: PCP Internal Medicine; Visit Provider Physician Assistant Surgical
DX: L98.7 Excessive and redundant skin and subcutaneous tissue (principal); Z90.3 Acquired absence of stomach [part of]; Z98.84 Bariatric surgery status
CPT/HCPCS: 99213

== ENCOUNTER → 2023-08-17 08:30 | Outpatient (BNVA) | payer OTHER, SELFPAY | PROVIDERS: PCP Internal Medicine; Visit Provider Physician Assistant Surgical ==

== ENCOUNTER 2023-11-16 08:24 | Outpatient (AMB) | payer OTHER, SELFPAY ==
--- NOTE | 2023-11-16 08:27 | MHC.OFFVISWM ---
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 Presents for 1year 2 month post op visit. Weight today is 176.2 pounds, with a BMI of 26.8. There has been a 90.2 pound weight loss,(initial weight 266.4 pounds) since starting the program on 06/09/22 reflecting a 33.8% total body weight loss and a weight loss of 51 pounds since surgery (operative weight 227.5 pounds) reflecting a 22.4% TBWL since surgery. No complaints of nausea, emesis, abdominal pain or reflux. Reports infrequent but normal bowel movements every 1-2 days and uses stool softeners regularly. Patient had an episode of significant dizziness and tingling, she went to the emergency room, found to have low potassium for which she was prescribed potassium. Repeat testing was normal. Workup at that time also revealed increasing number of thyroid nodules for which she had [place] by Endocinology [place] [facility] [place] was told the results were normal. She states that she is doing well overall however is complaining of excess skin of bilateral upper arms, medial thighs and abdomen. This has impacted her activities of daily living in the sense that she has to wear oversized garments and she feels as though the excess skin is quite heavy on her arms and causes discomfort with arm activity such as brushing her hair or washing her hair. Her arms cause her the most distress. She additionally states that the excess skin at the upper medial thighs rub together during any activity including walking and with all exercise, causing discomfort and irritation. When she buys appropriate size clothing, due to the excess skin, it is tight in the thigh but very loose in the waist and this causes significant uncomfortableness to her legs. She also has had chafing of her thighs requiring extra clothing. Her arms also have significant excess skin , also causing rubbing and discomfort with activity. She has to constantly wear extra layers of clothing to keep it all together and she is concerned about what will happen when the warmer weather arrives. Avg BP 1 teens-120s/80s. Now back on her losartan 25 mg daily by her PCP. Her meal plan was changed to [address] Calvin. She is able and willing to maintain the below meal plan. She feels great and would like to eat more food. Present meal plan includes: Celebrate 4 in 1, 1 scoop x 1 w almond milk 2 bars (fit crunch) meal 6 forks protein and 6 forks veg Drinking 32 oz water 24 oz coffee daily, 12 oz decaf tea ? Exercise routine includes: Treadmill speed 2.5 incline 2-10, 500 muriel, 4-5 x per week per week. Any post op complications: none JOSE: never DM: never HTN: improved Hyperlipidemia: never GERD:?0-5 scale ??0 = no symptoms ??1 = symptoms noticeable but not bothersome 2 =symptoms bothersome but not daily ? 3 = symptoms bothersome and daily 4 = symptoms affect daily activities 5 = symptoms are incapacitating, unable to do daily activities ? How bad is the heartburn: 0 ? Heartburn while lying down: 0 ? Heartburn when standing up: 0 ? Heartburn after meals: 0 ? Does heartburn change your diet: 0 ? Does heartburn wake you up from sleep: 0 ? Do you have difficulty swallowin ? Do you have pain with swallowin ? If you take medicine for your reflux, does this affect your daily life: 0 Satisfaction with present condition - satisfied or not satisfied: sarah [facility] Medical History BMI 34.0-34.9,adult Hx of ectopic PONV (postoperative nausea and vomiting) History of diverticulitis Thyroid nodule Insomnia DJD (degenerative joint disease) Hypertension Morbid obesity Surgical History S/P laparoscopic sleeve gastrectomy Hx of cholecystectomy Hx of colonoscopy Hx of hysterectomy, total Family History Mother Hypertension Father Hypertension Sister No problems noted. Sister No problems noted. Sister No problems noted. Sister No problems noted. Sister Hypertension Stroke Brother No problems noted. Social History Household Members: Children Household Members Other:: lives with daughter Housing: House Are you a primary children's zoo caretaker to a significant other at home: No Do you presently have visiting nurse or other home services: No Alcohol intake: current Alcohol intake frequency: holidays/special occasions only Patient Tobacco Use Status: Never used Tobacco service: No Physical Exam Const General: cooperative and no acute distress Orientation/consciousness: patient oriented x3 Resp Effort & Inspection: normal respiratory effort Auscultation: clear to auscultation bilaterally Cardio Rate: regular rate Rhythm: regular rhythm GI Inspection: Yes normal to inspection and Yes incision (well healed) Palpation (GI): Soft to palpation and no masses Skin Other: Excess skin of bilateral arms, and abdomen. Neuro General: patient oriented x3 Assessment & Plan Assessment & Plan (1) S/P laparoscopic sleeve gastrectomy: Code(s): Z98.84 - Bariatric surgery status Category: Surgical Plan: Patient may continue her current meal plan. Consideration for discontinuing 1 bar, substituting for a Hebrew yogurt, or discontinuing a bar altogether and increasing to 2 scoops of celebrate 4 in 1. Additionally, check 1 year postoperative labs. (2) Excess skin: Code(s): L98.7 - Excessive and redundant skin and subcutaneous tissue Category: Medical Plan: Continue weight loss, continue rash management with barrier. She will text with any worsening rash for prescription for antifungal. Consideration for medically necessary skin removal surgery at 18 months postoperative sleeve gastrectomy. Orders: Orders Hemoglobin A1c Today E04.1 - Nontoxic single thyroid nodule, E66.3 - Overweight, I10 - Essential (primary) hypertension, K74.00 - Hepatic fibrosis, unspecified, Z98.84 - Bariatric surgery status H Pylori Breath Test Today E04.1 - Nontoxic single thyroid nodule, E66.3 - Overweight, I10 - Essential (primary) hypertension, K74.00 - Hepatic fibrosis, unspecified, Z98.84 - Bariatric surgery status Lipid Panel Today E04.1 - Nontoxic single thyroid nodule, E66.3 - Overweight, I10 - Essential (primary) hypertension, K74.00 - Hepatic fibrosis, unspecified, Z98.84 - Bariatric surgery status IRON PROFILE Today E04.1 - Nontoxic single thyroid nodule, E66.3 - Overweight, I10 - Essential (primary) hypertension, K74.00 - Hepatic fibrosis, unspecified, Z98.84 - Bariatric surgery status Vitamin B12 and Folate Today E04.1 - Nontoxic single thyroid nodule, E66.3 - Overweight, I10 - Essential (primary) hypertension, K74.00 - Hepatic fibrosis, unspecified, Z98.84 - Bariatric surgery status Zinc Today E04.1 - Nontoxic single thyroid nodule, E66.3 - Overweight, I10 - Essential (primary) hypertension, K74.00 - Hepatic fibrosis, unspecified, Z98.84 - Bariatric surgery status C Reactive Protein Today E04.1 - Nontoxic single thyroid nodule, E66.3 - Overweight, I10 - Essential (primary) hypertension, K74.00 - Hepatic fibrosis, unspecified, Z98.84 - Bariatric surgery status Vitamin A Today E04.1 - Nontoxic single thyroid nodule, E66.3 - Overweight, I10 - Essential (primary) hypertension, K74.00 - Hepatic fibrosis, unspecified, Z98.84 - Bariatric surgery status TSH reflex Free T4 Today E04.1 - Nontoxic single thyroid nodule, E66.3 - Overweight, I10 - Essential (primary) hypertension, K74.00 - Hepatic fibrosis, unspecified, Z98.84 - Bariatric surgery status Ferritin Today E04.1 - Nontoxic single thyroid nodule, E66.3 - Overweight, I10 - Essential (primary) hypertension, K74.00 - Hepatic fibrosis, unspecified, Z98.84 - Bariatric surgery status Vitamin D 25-OH Total Today E04.1 - Nontoxic single thyroid nodule, E66.3 - Overweight, I10 - Essential (primary) hypertension, K74.00 - Hepatic fibrosis, unspecified, Z98.84 - Bariatric surgery status Basic Metabolic Panel Today E04.1 - Nontoxic single thyroid nodule, E66.3 - Overweight, I10 - Essential (primary) hypertension, K74.00 - Hepatic fibrosis, unspecified, Z98.84 - Bariatric surgery status Insulin Today E04.1 - Nontoxic single thyroid nodule, E66.3 - Overweight, I10 - Essential (primary) hypertension, K74.00 - Hepatic fibrosis, unspecified, Z98.84 - Bariatric surgery status Complete Blood Count Auto Diff Today E04.1 - Nontoxic single thyroid nodule, E66.3 - Overweight, I10 - Essential (primary) hypertension, K74.00 - Hepatic fibrosis, unspecified, Z98.84 - Bariatric surgery status Vitamin B1 Today E04.1 - Nontoxic single thyroid nodule, E66.3 - Overweight, I10 - Essential (primary) hypertension, K74.00 - Hepatic fibrosis, unspecified, Z98.84 - Bariatric surgery status
[2023-11-16 08:39] VITALS: BP 120/70; PULSE 64; TEMP 36.3; O2SAT 97; BMI 26.8
== END 2023-11-16 09:14 | disposition home or self-care (01) ==
PROVIDERS: PCP Internal Medicine; Visit Provider Physician Assistant Surgical
DX: L98.7 Excessive and redundant skin and subcutaneous tissue (principal); Z90.3 Acquired absence of stomach [part of]; Z98.84 Bariatric surgery status
CPT/HCPCS: 99214

== ENCOUNTER → 2023-11-16 08:24 | Outpatient (BNVA) | payer OTHER, SELFPAY | PROVIDERS: PCP Internal Medicine; Visit Provider Physician Assistant Surgical | DX: Z48.815 Encounter for surgical aftercare following surgery on the digestive system (principal); Z98.84 Bariatric surgery status; L98.7 Excessive and redundant skin and subcutaneous tissue | CPT/HCPCS: 99212 ==

== ENCOUNTER 2023-12-08 06:13 | Outpatient (REF) | payer OTHER, SELFPAY ==
[2023-12-08 06:35] LABS: MANUAL DIFF FLAG NO
[2023-12-08 07:48] LABS: Basophils Percent Auto 0.4 % (0-2); Eosinophils Absolute Auto 0.1 X10*3/uL (0.0-0.4); Eosinophils Percent Auto 1.7 % (0-4); Hematocrit 38.9 % (37.0-47.0); Lymphocytes Absolute Auto 2.3 X10*3/uL (1.2-4.9); Lymphocytes Percent Auto 49.2 % (20-40); Mean Corpuscular HGB Conc 33.4 g/dl (31.0-35.0); Mean Corpuscular Hemoglobin 30.4 pg (27.0-33.0); Mean Corpuscular Volume 91.1 fL (80.0-98.0); Mean Platelet Volume 10.8 fL (9.4-12.3); Monocytes Absolute Auto 0.4 X10*3/uL (0.1-1.2); Monocytes Percent Auto 9.5 % (2-11); Neutrophils Absolute Auto 1.8 x10*3/uL (2.0-8.3); Neutrophils Percent Auto 39.2 % (45-73); Platelet Count 312 X10*3/uL (160-400); Red Blood Count 4.27 X10*6/uL (4.20-5.50); Red Cell Distribution Width 12.9 % (11.0-16.0); White Blood Count 4.7 X10*3/uL (4.8-10.8)
[2023-12-08 07:55] LABS: Estimated Average Glucose 94 mg/dL; Hemoglobin A1c % 4.9 % (<6.0)
[2023-12-08 08:30] LABS: Anion Gap 12 (12-20); Blood Urea Nitrogen 17 mg/dL (9-16); Calcium 10.1 mg/dL (8.4-10.2); Carbon Dioxide 33 mmol/L (22-29); Chloride 102 mmol/L (96-108); Cholesterol 216 mg/dL (<200); Estimated Glomerular Filt Rate > 60; Glucose Random 86 mg/dL (60-115); HDL Cholesterol 76 mg/dL (>40); Iron 74 mcg/dL (30-160); LDL Cholesterol Calculated 131 mg/dL (<100); Percent Iron Saturation 28 % (15-50); Potassium 3.2 mmol/L (3.3-5.1); Sodium 144 mmol/L (135-145); Total Iron Binding Capacity 261 mcg/dL (228-428); Triglycerides 47 mg/dL (<150); Unsaturated Iron Binding 187 ug/dL
[2023-12-08 08:52] LABS: Folate 13.3 ng/mL (> or = 4.0); Vitamin B12 782 pg/mL (200-900)
[2023-12-08 08:56] LABS: Ferritin 86 ng/mL (10-250); Vitamin D 25-OH Total 67.7 ng/mL (>30)
[2023-12-08 09:15] LABS: Insulin 3 uU/mL (2-29)
[2023-12-12 09:33] LABS: Zinc 75 mcg/dL (60-130)
[2023-12-13 16:32] LABS: Vitamin B1 12 nmol/L (8-30)
[2023-12-14 01:05] LABS: Vitamin A 63 mcg/dL (38-98)
== END 2023-12-08 06:14 | disposition home or self-care (01) ==
LOC: HO.LAB 06:13
PROVIDERS: PCP Internal Medicine; Visit Provider Physician Assistant Surgical
DX: E66.3 Overweight (principal); Z98.84 Bariatric surgery status; K74.00 Hepatic fibrosis, unspecified; E04.1 Nontoxic single thyroid nodule; I10 Essential (primary) hypertension
CPT/HCPCS: 36415; 80048; 80061; 82306; 82607; 82728; 82746; 83036; 83525; 83540; 84425; 84443; 84590; 84630; 85025; 86140

== ENCOUNTER 2024-02-17 13:30 | Outpatient (AMB) | payer OTHER, SELFPAY ==
--- NOTE | 2024-02-17 09:58 | A.OFFVIS_ITS ---
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 Presents for 1 year 5 month post op visit. Weight today is 176.6 pounds, with a BMI of 26.8. There has been a 90.2 pound weight loss,(initial weight 266.4 pounds) since starting the program on 06/09/22 reflecting a 33.8% total body weight loss and a weight loss of 51 pounds since surgery (operative weight 227.5 pounds) reflecting a 22.4% TBWL since surgery. No complaints of nausea, emesis, abdominal pain or reflux. Reports infrequent but normal bowel movements every 1- 2 days and uses stool softeners regularly. She states that she is doing well overall however is complaining of excess skin of bilateral upper arms, medial thighs and abdomen. This has impacted her activities of daily living in the sense that she has to wear oversized garments and she feels as though the excess skin is quite heavy on her arms and causes discomfort with arm activity such as brushing her hair or washing her hair. Her arms cause her the most distress. She additionally states that the excess skin at the upper medial thighs rub together during any activity including walking and with all exercise, causing discomfort and irritation. When she buys appropriate size clothing, due to the excess skin, it is tight in the thigh but very loose in the waist and this causes significant uncomfortableness to her legs. She also has had chafing of her thighs requiring extra clothing. Her arms also have significant excess skin , also causing rubbing and discomfort with activity. She has to constantly wear extra layers of clothing to keep it all together and she is concerned about what will happen when the warmer weather arrives. She does gets rashes especially with increas in heat. She has found that prevention is helpful by way of increased layers and barriers between the skin folds. does need more antifungal cream Avg BP 1 teens-120s/80s. Now back on her losartan 25 mg daily by her PCP. Present meal plan includes: Celebrate 4 in 1, 1 scoop x 1 w almond milk 2 bars (fit crunch) meal 6 forks protein and 6 forks veg Drinking 32 oz water 24 oz coffee daily, 12 oz decaf tea ? Exercise routine includes: Treadmill speed 2.5, incline 2-10, 500 muriel, 4-5 x per week per week. [facility] Medical History BMI 34.0-34.9,adult Hx of ectopic PONV (postoperative nausea and vomiting) History of diverticulitis Thyroid nodule Insomnia DJD (degenerative joint disease) Hypertension Morbid obesity Surgical History S/P laparoscopic sleeve gastrectomy Hx of cholecystectomy Hx of colonoscopy Hx of hysterectomy, total Family History Mother Hypertension Father Hypertension Sister No problems noted. Sister No problems noted. Sister No problems noted. Sister No problems noted. Sister Hypertension Stroke Brother No problems noted. Social History Household Members: Children Household Members Other:: lives with daughter Housing: House Are you a primary attending ambulatory care to a significant other at home: No Do you presently have visiting nurse or other home services: No Alcohol intake: current Alcohol intake frequency: holidays/special occasions only Patient Tobacco Use Status: Never used Tobacco service: No Telehealth Telehealth Telehealth Platform: Telephone Location of provider rendering services: practice address Location of patient: address on file Patient Identification confirmed using: Name, : Yes Telehealth method: voice only Patient verbally consented to treatment: Yes Patient verbally consented to billing insurance company: Yes Patient informed of any privacy concerns related to visit: Yes Minutes spent on Phone/Video with Pt.: 15 Assessment & Plan Assessment & Plan (1) S/P laparoscopic sleeve gastrectomy: Code(s): Z98.84 - Bariatric surgery status Category: Surgical Plan: Patient is very happy with her meal plan. She has consistently maintain her weight. We will continue as such. She will return to the clinic as previously scheduled for 18 month postop visit (2) Excess skin: Code(s): L98.7 - Excessive and redundant skin and subcutaneous tissue Category: Medical Plan: Continue with barrier clothing. She does have clotrimazole which I did prescribe for worsening flare. Additionally, we will have her return to the office for an in-person appointment 18 months postop for photo documentation. She is appropriate for the medically necessary skin removal surgery. Medications: New clotrimazole 1% (Antifungal (clotrimazole)) 1 appl topical BID 45 grams 2RF
[2024-02-17 09:59] VITALS: BMI 26.8
== END 2024-02-17 13:58 | disposition home or self-care (01) ==
LOC: HO.HBS 13:51
PROVIDERS: PCP Internal Medicine; Visit Provider Physician Assistant Surgical
DX: L98.7 Excessive and redundant skin and subcutaneous tissue (principal); Z98.84 Bariatric surgery status
CPT/HCPCS: 99214

== ENCOUNTER 2024-03-29 08:30 | Outpatient (AMB) | payer OTHER, SELFPAY ==
--- NOTE | 2024-03-29 08:32 | MHC.OFFVISWM ---
VS Expanded 03/29/24 08:48 BP 122/76 Blood Pressure Location Rt brachial Blood Pressure Position Sitting Pulse 83 Pulse Source Pulse Oximeter Temp 97.5 F Temperature Source Temporal Artery Scan Pulse Oximetry 98 Oxygen Delivery Method Room Air Height 5 ft 8 in Weight 176 lb 3.2 oz BMI 26.8 Body Fat % 41.6 Body Fat Mass 73.2 Fat Free Mass 103.0 Visceral Fat Rating 9.0 Body Water % 41.4 Body Water Mass 73.0 Muscle Mass/Score 97.6 Basal Metabolic Rate/Score 1,426 Intake Visit Reasons: (OV) PO LSG 09/29/22 Head Of Geography Required: No Allergies SODIUM PEN Allergy (Mild, Uncoded 03/30/23 08:17) Nausea Medication List - Last Reconciled 03/29/24 by BERTIN Hay [biotin PO] clotrimazole 1% (Antifungal (clotrimazole)) 1 appl topical BID hydrochlorothiazide 12.5 mg (1/2 x 25 mg) PO QAM 90 days losartan 25 mg PO DAILY [multivitamin PO] [potassium PO] HPI Comments Details: This?a?59?yo female who is s/p LSG without hiatal hernia repair on?09/29/22. Presents for 1 year 6 month post op visit. Weight today is 176.2 pounds, with a BMI of 26.8. There has been a 90.2 pound weight loss,(initial weight 266.4 pounds) since starting the program on 06/09/22 reflecting a 33.8% total body weight loss and a weight loss of 51.3 pounds since surgery (operative weight 227.5 pounds) reflecting a 22.4% TBWL since surgery. No complaints of nausea, emesis, abdominal pain or reflux. Reports infrequent but normal bowel movements every 1-2 days and uses stool softeners regularly. She states that she is doing well overall however is complaining of excess skin of bilateral upper arms, medial thighs and abdomen. This has impacted her activities of daily living in the sense that she has to wear oversized garments and she feels as though the excess skin is quite heavy on her arms and causes discomfort with arm activity such as brushing her hair or washing her hair. Her arms cause her the most distress. She additionally states that the excess skin at the upper medial thighs rub together during any activity including walking and with all exercise, causing discomfort and irritation. When she buys appropriate size clothing, due to the excess skin, it is tight in the thigh but very loose in the waist and this causes significant uncomfortableness to her legs. She also has had chafing of her thighs requiring extra clothing. Her arms also have significant excess skin , also causing rubbing and discomfort with activity. She has to constantly wear extra layers of clothing to keep it all together and she is concerned about what will happen when the warmer weather arrives. She does gets rashes especially with increas in heat. She has found that prevention is helpful by way of increased layers and barriers between the skin folds. Avg BP 1 teens-120s/80s. Now back on her losartan 25 mg daily by her PCP. Present meal plan includes: Celebrate 4 in 1, 1 scoop x 1 w almond milk 2 bars (fit crunch) meal 6 forks protein and 6 forks veg Drinking 32 oz water 24 oz coffee daily, 12 oz decaf tea ? Exercise routine includes: Treadmill speed 2.5, incline 2-10, 500-700 muriel, 4-5 x per week per week (8726-2198 calories per week). Any post op complications: none JOSE: never DM: never HTN: improved Hyperlipidemia: never GERD:?0-5 scale ??0 = no symptoms ??1 = symptoms noticeable but not bothersome 2 =symptoms bothersome but not daily ? 3 = symptoms bothersome and daily 4 = symptoms affect daily activities 5 = symptoms are incapacitating, unable to do daily activities ? How bad is the heartburn: 0 ? Heartburn while lying down: 0 ? Heartburn when standing up: 0 ? Heartburn after meals: 0 ? Does heartburn change your diet: 0 ? Does heartburn wake you up from sleep: 0 ? Do you have difficulty swallowin ? Do you have pain with swallowin ? If you take medicine for your reflux, does this affect your daily life: 0 Satisfaction with present condition - satisfied or not satisfied: sarah [facility] Medical History BMI 34.0-34.9,adult Hx of ectopic PONV (postoperative nausea and vomiting) History of diverticulitis Thyroid nodule Insomnia DJD (degenerative joint disease) Hypertension Morbid obesity Surgical History S/P laparoscopic sleeve gastrectomy Hx of cholecystectomy Hx of colonoscopy Hx of hysterectomy, total Family History Mother Hypertension Father Hypertension Sister No problems noted. Sister No problems noted. Sister No problems noted. Sister No problems noted. Sister Hypertension Stroke Brother No problems noted. Social History Household Members: Children Household Members Other:: lives with daughter Housing: House Are you a primary morning caregiver to a significant other at home: No Do you presently have visiting nurse or other home services: No Alcohol intake: current Alcohol intake frequency: holidays/special occasions only Patient Tobacco Use Status: Never used Tobacco service: No Physical Exam Const General: cooperative and no acute distress Orientation/consciousness: patient oriented x3 Resp Effort & Inspection: normal respiratory effort Auscultation: clear to auscultation bilaterally Cardio Rate: regular rate Rhythm: regular rhythm GI Inspection: Yes normal to inspection and Yes incision (well healed) Palpation (GI): Soft to palpation and no masses Skin Other: Significant excess skin of her arms with evidence of irritation at the axilla Abdominal pannus grade 1-2 with an additional fold of skin at the umbilical line, no active dermatitis at this time (she states she just recently finished a course of clotrimazole) Neuro General: patient oriented x3 Assessment & Plan Assessment & Plan (1) S/P laparoscopic sleeve gastrectomy: Code(s): Z98.84 - Bariatric surgery status Category: Surgical Plan: Patient has maintained a stable and healthy weight over the last 5-6 months. She will continue her meal plan as she is doing. We will check her 18 month postop labs. Encouraged to continue sending weights and exercising as she is doing a very good job of this. Plan on follow-up appointment in the office in September, sooner should there be any questions or concerns. (2) Excess skin: Code(s): L98.7 - Excessive and redundant skin and subcutaneous tissue Category: Medical Plan: Given the 90 lb or 33.8% total body weight loss, she has excess skin causing her pain, discomfort, rash of her arms and abdomen. Given the medical necessity for skin removal surgery, we will submit to her insurance company for approval. In the meantime, she will continue with clotrimazole cream as needed. Orders: Orders Insulin Today E87.6 - Hypokalemia, I10 - Essential (primary) hypertension, K74.00 - Hepatic fibrosis, unspecified, Z98.84 - Bariatric surgery status IRON PROFILE Today E87.6 - Hypokalemia, I10 - Essential (primary) hypertension, K74.00 - Hepatic fibrosis, unspecified, Z98.84 - Bariatric surgery status Comprehensive Met. Panel Today E87.6 - Hypokalemia, I10 - Essential (primary) hypertension, K74.00 - Hepatic fibrosis, unspecified, Z98.84 - Bariatric surgery status Vitamin B12 and Folate Today E87.6 - Hypokalemia, I10 - Essential (primary) hypertension, K74.00 - Hepatic fibrosis, unspecified, Z98.84 - Bariatric surgery status Ferritin Today E87.6 - Hypokalemia, I10 - Essential (primary) hypertension, K74.00 - Hepatic fibrosis, unspecified, Z98.84 - Bariatric surgery status Hemoglobin A1c Today E87.6 - Hypokalemia, I10 - Essential (primary) hypertension, K74.00 - Hepatic fibrosis, unspecified, Z98.84 - Bariatric surgery status Complete Blood Count Auto Diff Today E87.6 - Hypokalemia, I10 - Essential (primary) hypertension, K74.00 - Hepatic fibrosis, unspecified, Z98.84 - Bariatric surgery status Lipid Panel Today E87.6 - Hypokalemia, I10 - Essential (primary) hypertension, K74.00 - Hepatic fibrosis, unspecified, Z98.84 - Bariatric surgery status Zinc Today E87.6 - Hypokalemia, I10 - Essential (primary) hypertension, K74.00 - Hepatic fibrosis, unspecified, Z98.84 - Bariatric surgery status C Reactive Protein Today E87.6 - Hypokalemia, I10 - Essential (primary) hypertension, K74.00 - Hepatic fibrosis, unspecified, Z98.84 - Bariatric surgery status Vitamin B1 Today E87.6 - Hypokalemia, I10 - Essential (primary) hypertension, K74.00 - Hepatic fibrosis, unspecified, Z98.84 - Bariatric surgery status Vitamin A Today E87.6 - Hypokalemia, I10 - Essential (primary) hypertension, K74.00 - Hepatic fibrosis, unspecified, Z98.84 - Bariatric surgery status TSH reflex Free T4 Today E87.6 - Hypokalemia, I10 - Essential (primary) hypertension, K74.00 - Hepatic fibrosis, unspecified, Z98.84 - Bariatric surgery status Vitamin D 25-OH Total Today E87.6 - Hypokalemia, I10 - Essential (primary) hypertension, K74.00 - Hepatic fibrosis, unspecified, Z98.84 - Bariatric surgery status
[2024-03-29 08:48] VITALS: BP 122/76; PULSE 83; TEMP 36.4; O2SAT 98; BMI 26.8
== END 2024-03-29 09:06 | disposition home or self-care (01) ==
PROVIDERS: PCP Internal Medicine; Visit Provider Physician Assistant Surgical
DX: L98.7 Excessive and redundant skin and subcutaneous tissue (principal); Z98.84 Bariatric surgery status
CPT/HCPCS: 99214

== ENCOUNTER → 2024-03-29 08:30 | Outpatient (BNVA) | payer OTHER, SELFPAY | PROVIDERS: PCP Internal Medicine; Visit Provider Physician Assistant Surgical | DX: L98.7 Excessive and redundant skin and subcutaneous tissue (principal); E87.6 Hypokalemia; I10 Essential (primary) hypertension; K74.00 Hepatic fibrosis, unspecified; Z71.3 Dietary counseling and surveillance; Z98.84 Bariatric surgery status | CPT/HCPCS: 99212 ==

== ENCOUNTER 2024-05-18 06:37 | Outpatient (REF) | payer OTHER, SELFPAY ==
--- OUTSIDE RECORDS SUMMARY | 2024-05-18 06:39 | XMS_ITS | Clinical Summary ---
Author Organization [facility] Address [address] [place] [address] Care Team Providers Care Luggage Maker Name Role Phone System, Provider Not In Primary Care Provider Un available Allergies No known active allergies Medications No known medications Social History Tobacco Use Types Packs/Day Years Used Date Smoking Tobacco: Never Assessed Sex and Gender Information Value Date Recorded Sex Assigned at Not on file Gender Identity Not on file Sexual Orientation Not on file Last Filed Vital Signs Vital Sign Reading Time Taken Comments Blood Pressure 154/60 09/27/2021 9:10 PM EDT Pulse 104 09/27/2021 9:10 PM EDT Temperature 36.4 ??C (97.6 ??F) 09/27/2021 9:10 PM ED T Respiratory Rate 18 09/27/2021 9:10 PM EDT Oxygen Saturation 98% 09/27/2021 9:10 PM EDT Inhaled Oxygen Concentration - - Weight - - Height - - Body Mass Index - - Plan of Treatment Health Maintenance Due Date Last Done Comments Hepatitis C Virus Screening 1967 HIV Screening 01/31/1980 DTaP/Tdap/Td Vaccines (1 - Tdap) 1986 Hepatitis B Vaccines (1 of 3 - 19+ 3-dose series) 1986 Pap Smear (Ages 21-65) 01/31/1988 Mammogram 2007 Colonoscopy 01/31/2012 Pneumococcal Vaccines 50+ (1 of 1 - PCV) 2017 Zoster (Shingles) Vaccine (1 of 2) 2017 Influenza Vaccine 11/10/2023 COVID-19 Vaccine (3 - 2023-2 5 season) 2023 08/16/2020, 07/26/2020 Pneumococcal Vaccine: Pediatric (0-5 Years) and At-Risk Patients (6 to 49 Years) Aged Out No longer eligible b ased on patient's age to complete this topic Care Teams Luggage Maker Relationship Specialty Start Date End Date System, Provider Not In PCP - General 09/27/21
[2024-05-18 06:51] LABS: MANUAL DIFF FLAG NO
[2024-05-18 07:39] LABS: Basophils Percent Auto 0.9 % (0-2); Eosinophils Absolute Auto 0.1 X10*3/uL (0.0-0.4); Eosinophils Percent Auto 1.8 % (0-4); Hematocrit 38.8 % (37.0-47.0); Hemoglobin 13.1 g/dl (12.0-16.0); Imm Gran Abs Auto 0.01 X10*3/uL (0.00-0.03); Imm Gran Pct Auto 0.2 % (0.0-0.4); Lymphocytes Absolute Auto 2.1 X10*3/uL (1.2-4.9); Lymphocytes Percent Auto 47.6 % (20-40); Mean Corpuscular HGB Conc 33.8 g/dl (31.0-35.0); Mean Corpuscular Hemoglobin 31.1 pg (27.0-33.0); Mean Corpuscular Volume 92.2 fL (80.0-98.0); Mean Platelet Volume 10.2 fL (9.4-12.3); Monocytes Absolute Auto 0.4 X10*3/uL (0.1-1.2); Monocytes Percent Auto 9.1 % (2-11); Neutrophils Absolute Auto 1.8 x10*3/uL (2.0-8.3); Neutrophils Percent Auto 40.4 % (45-73); Platelet Count 300 X10*3/uL (160-400); Red Blood Count 4.21 X10*6/uL (4.20-5.50); Red Cell Distribution Width 13.9 % (11.0-16.0); White Blood Count 4.4 X10*3/uL (4.8-10.8)
[2024-05-18 07:48] LABS: Estimated Average Glucose 97 mg/dL; Hemoglobin A1C 106.7714 umol/L; Total Hemoglobin (HGBA1C) 3406.4894 umol/L
[2024-05-18 08:13] LABS: Alanine Aminotransferase 23 U/L (0-31); Albumin Level 4.2 g/dL (3.5-5.0); Alkaline Phosphatase 44 U/L (39-117); Anion Gap 12 (12-20); Aspartate Amino Transferase 27 U/L (5-31); Bilirubin Total 0.6 mg/dL (0.0-1.0); Blood Urea Nitrogen 20 mg/dL (9-16); C Reactive Protein < 0.10 mg/dL (< or = 0.50); Calcium 9.8 mg/dL (8.4-10.2); Carbon Dioxide 32 mmol/L (22-29); Chloride 101 mmol/L (96-108); Cholesterol 248 mg/dL (<200); Estimated Glomerular Filt Rate > 60; Glucose Random 81 mg/dL (60-115); HDL Cholesterol 90 mg/dL (>40); Iron 88 mcg/dL (30-160); LDL Cholesterol Calculated 144 mg/dL (<100); Percent Iron Saturation 30 % (15-50); Potassium 3.6 mmol/L (3.3-5.1); Sodium 141 mmol/L (135-145); Total Iron Binding Capacity 291 mcg/dL (228-428); Total Protein 7.3 g/dL (6.5-8.0); Triglycerides 73 mg/dL (<150); Unsaturated Iron Binding 203 ug/dL
[2024-05-18 08:39] LABS: Ferritin 43 ng/mL (10-250); TSH reflex Free T4 0.45 uIU/mL (0.32-4.0); Vitamin D 25-OH Total 70.6 ng/mL (>30)
[2024-05-18 08:40] LABS: Insulin 3 uU/mL (2-29)
[2024-05-18 08:44] LABS: Folate 13.9 ng/mL (> or = 4.0); Vitamin B12 523 pg/mL (200-900)
[2024-05-22 04:29] LABS: Zinc 82 mcg/dL (60-130)
[2024-05-22 19:28] LABS: Vitamin A 84 mcg/dL (38-98)
[2024-05-26 12:19] LABS: Vitamin B1 16 nmol/L (8-30)
== END 2024-05-18 06:38 | disposition home or self-care (01) ==
LOC: HO.LAB 06:37
PROVIDERS: PCP Physician Assistant; Visit Provider Physician Assistant Surgical
DX: Z98.84 Bariatric surgery status (principal); K74.00 Hepatic fibrosis, unspecified; I10 Essential (primary) hypertension; E87.6 Hypokalemia
CPT/HCPCS: 36415; 80053; 80061; 82306; 82607; 82728; 82746; 83036; 83525; 83540; 84425; 84443; 84590; 84630; 85025; 86140

== ENCOUNTER 2024-06-25 08:05 | Outpatient (AMB) | payer OTHER, SELFPAY ==
--- OUTSIDE RECORDS SUMMARY | 2024-06-25 08:09 | XMS_ITS | Clinical Summary ---
Author Organization [facility] Address [address] [place] [address] Care Team Providers Care Medical Device Sales Consultant Name Role Phone System, Provider Not In [...] age to complete this topic Care Teams Medical Device Sales Consultant Relationship Specialty Start Date End Date System, Provider Not In PCP - General 09/27/21
--- OUTSIDE RECORDS SUMMARY | 2024-06-25 08:09 | XMS_ITS ---
Author Name [facility] Organization Unknown Encounters Encounter Type Encounter Reason Primary Diagnosis Location Date Emergency Cannabis use, unspecified, uncomplicated [employer] 09/27/2021 Care Team Organization Name Specialty Phone Email Start Date End [facility],Provider Primary Care 09/28/2021 [facility] SYSTEM Primary Care 09/27/[id number]
--- NOTE | 2024-06-25 08:15 | A.OFFVIS_ITS ---
VS Expanded 06/25/24 08:26 Height 5 ft 8 in Weight 177 lb BMI 26.9 Body Fat % 39.8 Body Fat Mass 70.2 Fat Free Mass 106.2 Visceral Fat Rating 8 Body Water Mass 106.8 Basal Metabolic Rate/Score 1,450 Intake Visit Reasons: TV Pre Op LSG 07/12/24 Allergies SODIUM PEN Allergy (Mild, Uncoded 06/25/24 08:19) Nausea Medication List - Last Reconciled 06/25/24 by Dave Huff MD [biotin PO] cephalexin 500 mg PO Q12H clotrimazole 1% (Antifungal (clotrimazole)) 1 appl topical BID docusate sodium (Colace) 100 mg PO DAILY hydrochlorothiazide 12.5 mg (1/2 x 25 mg) PO QAM 90 days losartan 25 mg PO DAILY [multivitamin PO] ondansetron 4 mg PO Q12H [potassium PO] triamcinolone acetonide 0.1% 1 appl topical BID HPI HPI TV Pre Op LSG 07/12/24: Details: Start time: 8.03am, End time: 8.33am ?I spent 25 minutes speaking with the patient on the phone plus an additional 5 minutes reviewing and updating records for a total of 30 minutes HPI Comments Details: Overall weight loss: 89.8 lbs, or 33.7% TBWL Is doing Celebrate 4:1 (1 scoop in 8oz almond milk), 2 [employer] protein bars and one meal (6-8 forks of tilapia and 6 forks) Exercise: is doing the treadmill for 300-500 calories for at least 2000 calories per week PFSH Medical History BMI 34.0-34.9,adult Hx of ectopic PONV (postoperative nausea and vomiting) History of diverticulitis Thyroid nodule Insomnia DJD (degenerative joint disease) Hypertension Morbid obesity Surgical History S/P laparoscopic sleeve gastrectomy Hx of cholecystectomy Hx of colonoscopy Hx of hysterectomy, total Family History Mother Hypertension Father Hypertension Sister No problems noted. Sister No problems noted. Sister No problems noted. Sister No problems noted. Sister Hypertension Stroke Brother No problems noted. Social History Household Members: Children Household Members Other:: lives with daughter Housing: House Are you a primary healthcare market consultant to a significant other at home: No Do you presently have visiting nurse or other home services: No Alcohol intake: current Alcohol intake frequency: holidays/special occasions only Patient Tobacco Use Status: Never used Tobacco service: No Telehealth Telehealth Telehealth Platform: Telephone Location of provider rendering services: practice address Location of patient: address on file Patient Identification confirmed using: Name, : Yes Telehealth method: voice only Patient verbally consented to treatment: Yes Patient verbally consented to billing insurance company: Yes Patient informed of any privacy concerns related to visit: Yes Minutes spent on Phone/Video with Pt.: 30 Assessment & Plan Assessment & Plan (1) Excess skin: Code(s): L98.7 - Excessive and redundant skin and subcutaneous tissue Category: Medical Plan: 1. Plan for bilateral brachioplasty and panniculectomy. Risks of infection, bleeding, asymmetry, wound dehiscence and blood clots were discussed with the patient. 2. You will have a drain the abdomen that may stay a few weeks before it may be removed 3. You will need to be doing sponge baths the first 1-2 weeks. No showers. You need to have help at home to get you up and limit your activities as much as possible for at least the 4-6 weeks after surgery 4. We will arrange for a visiting nurse to come at home to help you with dressing changes and send me pictures of the procedures. We will send at your home supplies for the dressing changes. 5. Change nutritional plan to one Celebrate 4:1 (with TWO scoops in 8oz almond milk), 2 [employer] protein bars and one meal (6-8 forks of tilapia and 6 forks) This will improve weight loss and healing after surgery. 6. Continue all vitamins 7. Stop Hydrochlorothiazide on 8. Do blood work not fasting any day between Tuesday07/02/24 and Tuesday07/06/24 and orange picker machine operator the antibiotic prescription from your pharmacy 9. Risks and complications were discussed the possibility of bleeding that may require transfusion, loss of the umbilicus, wound dehiscence or infection, dog ears , flap asymmetry. We also discussed the importance of strict avoidance of weight lifting. 10. Avoid aspirin, motrin, ibuprofen, Aleve, Advil, Naproxyn. Only Tylenol is OK 11. Check your blood pressure daily in the morning and do not take the Losartan and Hydrochlorothiazide if the blood pressure is below 120/70. Orders: Orders Type and Screen Today Dave Huff MD Z01.818 - Encounter for other preprocedural examination Prothrombin Time INR Today Dave Huff MD Z01.818 - Encounter for other preprocedural examination Partial Thromboplastin Time Today Dave Huff MD Z01.818 - Encounter for other preprocedural examination Complete Blood Count Auto Diff Today Dave Huff MD Z01.818 - Encounter for other preprocedural examination Comprehensive Met. Panel Today Dave Huff MD Z01.818 - Encounter for other preprocedural examination Referrals [facility] Referral BERTIN Hay L98.7 - Excessive and redundant skin and subcutaneous tissue Medications: New cephalexin 500 mg PO Q12H 60 caps 2RF Dave Huff MD M79.3 - Panniculitis, unspecified docusate sodium (Colace) 100 mg PO DAILY 90 caps 0RF Dave Huff MD K59.00 - Constipation, unspecified ondansetron 4 mg PO Q12H 20 tabs 0RF nausea and vomiting Dave Huff MD R11.0 - Nausea
[2024-06-25 08:26] VITALS: BMI 26.9
== END 2024-06-25 08:34 | disposition home or self-care (01) ==
LOC: HO.HBS 08:05
PROVIDERS: PCP Physician Assistant; Visit Provider Surgery
DX: L98.7 Excessive and redundant skin and subcutaneous tissue (principal)
CPT/HCPCS: 99499

== ENCOUNTER 2024-07-12 06:01 | Day surgery (SDC) | payer OTHER, SELFPAY ==
--- OUTSIDE RECORDS SUMMARY | 2024-06-12 13:34 | XMS_ITS | Clinical Summary ---
Author Organization [facility] Address [address] [place] [address] Care Team Providers Care Drug Counselor Name Role Phone System, Provider Not In [...] age to complete this topic Care Teams Drug Counselor Relationship Specialty Start Date End Date System, Provider Not In PCP - General 09/27/21
[2024-06-28 14:39] VITALS: BMI 26.9
[2024-07-06 06:52] LABS: MANUAL DIFF FLAG NO
[2024-07-06 07:23] LABS: Basophils Percent Auto 0.2 % (0-2); Eosinophils Absolute Auto 0.1 X10*3/uL (0.0-0.4); Eosinophils Percent Auto 1.1 % (0-4); Hematocrit 40.6 % (37.0-47.0); Hemoglobin 13.9 g/dl (12.0-16.0); Imm Gran Abs Auto 0.01 X10*3/uL (0.00-0.03); Imm Gran Pct Auto 0.2 % (0.0-0.4); Lymphocytes Absolute Auto 1.8 X10*3/uL (1.2-4.9); Lymphocytes Percent Auto 40.4 % (20-40); Mean Corpuscular HGB Conc 34.2 g/dl (31.0-35.0); Mean Corpuscular Hemoglobin 31.1 pg (27.0-33.0); Mean Corpuscular Volume 90.8 fL (80.0-98.0); Mean Platelet Volume 10.8 fL (9.4-12.3); Monocytes Absolute Auto 0.5 X10*3/uL (0.1-1.2); Neutrophils Absolute Auto 2.2 x10*3/uL (2.0-8.3); Neutrophils Percent Auto 48.1 % (45-73); Platelet Count 261 X10*3/uL (160-400); Prothrombin Time 11.6 SEC (10.9-12.4); Red Blood Count 4.47 X10*6/uL (4.20-5.50); Red Cell Distribution Width 13.2 % (11.0-16.0); White Blood Count 4.5 X10*3/uL (4.8-10.8)
[2024-07-06 07:26] LABS: Partial Thromboplastin Time 33.8 SEC (26.0-36.8)
[2024-07-06 07:52] LABS: Alanine Aminotransferase 20 U/L (0-31); Albumin Level 4.3 g/dL (3.5-5.0); Alkaline Phosphatase 46 U/L (39-117); Anion Gap 12 (12-20); Aspartate Amino Transferase 27 U/L (5-31); Bilirubin Total 0.6 mg/dL (0.0-1.0); Blood Urea Nitrogen 12 mg/dL (9-16); Calcium 9.9 mg/dL (8.4-10.2); Carbon Dioxide 30 mmol/L (22-29); Chloride 101 mmol/L (96-108); Creatinine Clr Calc Pharmacy 89.6; Estimated Glomerular Filt Rate > 60; Glucose Random 86 mg/dL (60-115); Potassium 3.4 mmol/L (3.3-5.1); Sodium 140 mmol/L (135-145); Total Protein 7.2 g/dL (6.5-8.0)
--- NOTE | 2024-07-11 08:12 | HO.ANESPROP2 ---
Documented by User: Faby Santiago NP 07/11/24 08:15 HPI - Anesthesia Eval Consult details Narrative: 59yo F for Panniculectomy, Brachioplasty s/p Gastric Sleeve 2022 with GA-ETT 7 PMFSH Active Problems Active Problems: All Active Problems Hypokalemia (Acute) Excess skin (Acute) Overweight (BMI 25.0-29.9) (Acute) Liver fibrosis (Acute) Steatosis, liver (Acute) BMI 35.0-35.9,adult (Acute) Constipation (Acute) BMI 36.0-36.9,adult (Acute) Adjustment disorder with anxiety (Acute) BMI 37.0-37.9, adult (Acute) Obesity (Acute) Abnormal EKG (Acute) S/P laparoscopic sleeve gastrectomy (Acute) Thyroid nodule (Acute) Insomnia (Acute) DJD (degenerative joint disease) (Acute) Hypertension (Acute) Morbid obesity (Acute) Past Medical History Medical History Dysplastic nevus Hx of transfusion of packed red blood cells Arthritis BMI 34.0-34.9,adult Hx of ectopic PONV (postoperative nausea and vomiting) History of diverticulitis Thyroid nodule Insomnia DJD (degenerative joint disease) Hypertension Morbid obesity Family History Family History Mother Hypertension Father Hypertension Sister No problems noted. Sister No problems noted. Sister No problems noted. Sister No problems noted. Sister Hypertension Stroke Brother No problems noted. Family history of problems with anesthesia: No Surgical History Surgical History H/O tubal ligation S/P laparoscopic sleeve gastrectomy Hx of cholecystectomy Hx of colonoscopy Hx of hysterectomy, total History of Problems with Anesthesia: No Social History Social History Household Members: Children Household Members Other:: lives with daughter Housing: House Are you a primary childcare center administrator to a significant other at home: No Do you presently have visiting nurse or other home services: No Alcohol intake: current Alcohol intake frequency: holidays/special occasions only Patient Tobacco Use Status: Never used Tobacco Second Hand Smoke Exposure: No Use of substances other than those prescribed or required for medical reasons: No Have you been hit, kicked, punched, or otherwise hurt by someone within the past year? If so, by whom?: No Are you DNR?: No Advance Directives: No Advance Directives Information Provided: Yes Advance Directives on File: No Recently lost weight without trying: No Eating poorly because of decreased appetite: No Nutrition Risks: No Nutritional Risk Patient : No : No Poor oral hygiene: No service: No Meds Allergies Allergy/AdvReac Type Severity Reaction Status Date / Time SODIUM PEN Allergy Mild Nausea Uncoded 06/25/24 08:19 Home Medications ?Medication ?Instructions ?Recorded ?Confirmed ?Last Taken ?Type multivitamin 1 tab PO DAILY 02/02/23 07/12/24 07/11/24 History losartan 25 mg tablet 25 mg PO DAILY 07/12/23 07/12/24 07/11/24 History biotin 1 tab PO DAILY 11/16/23 07/12/24 07/11/24 History acetaminophen 500 mg tablet 500 mg PO Q6H PRN Pain 06/28/24 07/12/24 Unknown History clotrimazole 1 % topical cream 1 appl topical BID PRN Skin 06/28/24 07/12/24 Unknown History (Antifungal (clotrimazole)) Irritation potassium citrate 99 mg capsule 99 mg PO DAILY 06/28/24 07/12/24 07/11/24 History triamcinolone acetonide 0.1 % 1 appl topical BID PRN Skin 06/28/24 07/12/24 Unknown History topical cream Irritation Exam Height,Weight and Vital Signs: Height 5 ft 8 in Weight 80.286 kg Pertinent Lab Results Pertinent Lab Results: Laboratory Tests 07/06/24 07/06/24 06:47 06:50 WBC 4.5 L RBC 4.47 Hgb 13.9 Hct 40.6 MCV 90.8 MCH 31.1 MCHC 34.2 RDW 13.2 Plt Count 261 MPV 10.8 Immature Gran % (Auto) 0.2 Neut % (Auto) 48.1 Lymph % (Auto) 40.4 H [place] % (Auto) 10.0 Eos % (Auto) 1.1 Baso % (Auto) 0.2 Lymph # (Auto) 1.8 [place] # (Auto) 0.5 Eos # (Auto) 0.1 Baso # (Auto) 0.0 Abs Immat Gran (auto) 0.01 Absolute Neuts (auto) 2.2 Absolute Nucleated RBC 0.000 Nucleated RBC % (auto) 0.0 PT 11.6 INR 1.0 APTT 33.8 Sodium 140 Potassium 3.4 Chloride 101 Carbon Dioxide 30 H Anion Gap 12 BUN 12 Creatinine 0.77 Estim Creat Clear Calc 89.6 Estimated GFR > 60 Random Glucose 86 Calcium 9.9 Total Bilirubin 0.6 AST 27 ALT 20 Alkaline Phosphatase 46 Total Protein 7.2 Albumin 4.3 Blood Type A Negative Antibody Screen NEGATIVE Narrative Narrative: EKG 06/2022 Vent. Rate : 084 BPM ? ? Atrial Rate : 084 BPM ?? P-R Int : 158 ms? QRS Dur : 108 ms ? ? QT Int : 408 ms ? ? ? P-R-T Axes : 061 052 037 degrees ?? QTc Int : 482 ms ? Normal sinus rhythm Prolonged QT Abnormal ECG No previous ECGs available ECHO 07/2022 Conclusions: - The left ventricular systolic function is normal.? The ? calculated ejection fraction is 65% by biplane method. ? - No obvious valvular pathology seen on this study.? Exercise Stress 07/2022 Protocol: REIC ? Max HR: 155 BPM? 93% of? Pred: 165 BPM Max BP: 170/088 mmHG Max Work Load: 7.1 METS ? Exercise stress test exercise 6 min 6 sec of Eric protocol achieiving 94% MPHR ?and 7.1 METs, without anginal symtpoms, without arrythmia, with normotensive ?response to exercise, with baseline EKGs showing St/T abnormality in lead 3 and ?aVF which was present throughout test, non-specific, no changes meeting ?critieria for ischemia. Test reviewed with Dr. Dorman. Assessment and Plan Assessment Anesthesia Assessment: Chart Reviewed Final Anesthetic Review Family History of Problems with Anesthesia: No History of Problems with Anesthesia: No Documented by User: Aileen Sales MD 07/12/24 08:34 [facility] Active Problems Active Problems: All Active Problems Hypokalemia (Acute) K+ 3.4 Excess skin (Acute) Overweight (BMI 25.0-29.9) (Acute) Liver fibrosis (Acute) Steatosis, liver (Acute) BMI 35.0-35.9,adult (Acute) Constipation (Acute) BMI 36.0-36.9,adult (Acute) Adjustment disorder with anxiety (Acute) BMI 37.0-37.9, adult (Acute) Obesity (Acute) Abnormal EKG (Acute) S/P laparoscopic sleeve gastrectomy (Acute) Thyroid nodule (Acute) Insomnia (Acute) DJD (degenerative joint disease) (Acute) Hypertension (Acute) H/o Morbid obesity (Acute) Past Medical History Medical History Dysplastic nevus Hx of transfusion of packed red blood cells Arthritis BMI 34.0-34.9,adult Hx of ectopic PONV (postoperative nausea and vomiting) History of diverticulitis Thyroid nodule Insomnia DJD (degenerative joint disease) Hypertension Morbid obesity Family History Family History Mother Hypertension Father Hypertension Sister No problems noted. Sister No problems noted. Sister No problems noted. Sister No problems noted. Sister Hypertension Stroke Brother No problems noted. Family history of problems with anesthesia: No Surgical History Surgical History H/O tubal ligation S/P laparoscopic sleeve gastrectomy Hx of cholecystectomy Hx of colonoscopy Hx of hysterectomy, total History of Problems with Anesthesia: Yes (PONV) Social History Social History Household Members: Children Household Members Other:: lives with daughter Housing: House Are you a primary childcare center administrator to a significant other at home: No Do you presently have visiting nurse or other home services: No Alcohol intake: current Alcohol intake frequency: holidays/special occasions only Patient Tobacco Use Status: Never used Tobacco Second Hand Smoke Exposure: No Use of substances other than those prescribed or required for medical reasons: No Have you been hit, kicked, punched, or otherwise hurt by someone within the past year? If so, by whom?: No Are you DNR?: No Advance Directives: No Advance Directives Information Provided: Yes Advance Directives on File: No Recently lost weight without trying: No Eating poorly because of decreased appetite: No Nutrition Risks: No Nutritional Risk Patient : No : No Poor oral hygiene: No service: No Meds Allergies Allergy/AdvReac Type Severity Reaction Status Date / Time SODIUM PEN Allergy Mild Nausea Uncoded 06/25/24 08:19 Home Medications ?Medication ?Instructions ?Recorded ?Confirmed ?Last Taken ?Type multivitamin 1 tab PO DAILY 02/02/23 07/12/24 07/11/24 History losartan 25 mg tablet 25 mg PO DAILY 07/12/23 07/12/24 07/11/24 History biotin 1 tab PO DAILY 11/16/23 07/12/24 07/11/24 History acetaminophen 500 mg tablet 500 mg PO Q6H PRN Pain 06/28/24 07/12/24 Unknown History clotrimazole 1 % topical cream 1 appl topical BID PRN Skin 06/28/24 07/12/24 Unknown History (Antifungal (clotrimazole)) Irritation potassium citrate 99 mg capsule 99 mg PO DAILY 06/28/24 07/12/24 07/11/24 History triamcinolone acetonide 0.1 % 1 appl topical BID PRN Skin 06/28/24 07/12/24 Unknown History topical cream Irritation Exam Height,Weight and Vital Signs: Height 5 ft 8 in Weight 80.286 kg Vital Signs Temp Pulse Resp BP Pulse Ox O2 Del Method 07/12/24 06:38 97.3 F 70 16 123/73 97 Room Air Airway Mallampati Class: II TM Dist: >3cm Neck ROM: Full Loose/Missing/Broken Teeth: No (Denies broken, loose, missing teeth. Caps/crowns/veneers intact) Heart: RRR Lungs: CTAB Assessment and Plan Assessment Anesthesia Assessment: Anesthesia Plan Discussed and Chart Reviewed Final Anesthetic Review Family History of Problems with Anesthesia: No History of Problems with Anesthesia: Yes (PONV) NPO: Yes ASA Class: III Final Preanesthetic Review: No Changes in Pt Med Stat, Meds/Allgs Chart Reviewed, Consent Obtained/Reviewed and Anes Risks/Benef Reviewed Patient Risk: Intermediate Procedure Risk: Intermediate Assessment/Block/Sedation in SS: Assess/Block/Sedation-SS Anesthetic Plan Anesthetic Plan: GA Disposition: Standard PACU
[2024-07-12] VITALS (21 sets, daily range): BP systolic 101–147; BP diastolic 55–78; PULSE 70–90; RESP 12–95; TEMP 36.2–36.8; O2SAT 97–100; BMI 27.9; BMI 27.8
--- NOTE | ~2024-07-12 | MR_ITS ---
CLINICAL HISTORY: right brachial plexopathy w paresis MR brachial plexus with and without contrast Comparison: None Findings: No discontinuity or abnormal enhancement of the intradural nerve rootlets. No pseudomeningocele. No deviation of the spinal cord to indirectly indicate avulsion of nerve rootlets. Muscles are normal in signal and bulk; no muscular atrophy. No edema, non-masslike enhancement or soft tissue inflammation to indicate infection. No hyperintensity on the T2-weighted images, thickening or enhancement to indicate inflammation. No space occupying vascular abnormality. Postcontrast images demonstrate no abnormal enhancement. No enhancing mass. No drainable fluid collection. Right thyroid nodules measure up to 2.8 cm. Impression: No brachial plexus abnormality. Thyroid nodules measure up to 2.8 cm. Consider further evaluation with nonemergent thyroid ultrasound. This document has been electronically signed by: Luzma Kincaid MD on 07/13/2024 16:45:09
[2024-07-12] MEDS: Lactated Ringers 1,000 ML 100 ML IVCONT (06:39)
--- NOTE | 2024-07-12 08:06 | P.F2F_ITS ---
Service Date Service Date: 07/12/24 Encounter Date of encounter: 07/12/24 Reasons for Services Signs and symptoms assessed: s/p panniculectomy with drain placement and bilateral brachioplasty, needs long term care 3x/week Reason for long term: wound care and other (drain care) Homebound: Leaving the home is medically contraindicated at this time without the asist of a device and/or another person due th the listed conditions above and below. Reason homebound: unable to drive Certification: Based on the above findings, I certify that this patient is confined to the home and needs intermittent long term care, physical therapy and/or speech the rapy, or continues to need occupational therapy. The patient is under my care, and I have initiated the establishment of the plan of care. The patient will be followed by a physician who will periodically review the plan of care. Time Spent With Patient Time: Total time managing care of this patient today __30__ minutes.
--- NOTE | 2024-07-12 08:27 | MHC.SHP ---
Pre-Procedural Eval Section A - 24 Hr Update-Section A only Date of Service: 07/12/24 The patient is an INPATIENT: No The patient has been examined within 24 hours of the surgical procedure. The History & Physical has been completed within 30 days and I have reviewed it.: Yes Section B - Complete if H&P > 30 days Chief Complaint: Excessive and redundant skin and subcutaneous Relevant Family History (Specify if Yes): No Relevant Social History: None Present Medications: None Medical History: No relevant PMH History of Previous Operations: Relevant previous surgery/procedure and date(s) (Laparoscopic sleeve gastrectomy) Allergies: Allergies Allergy/AdvReac Type Severity Reaction Status Date / Time SODIUM PEN Allergy Mild Nausea Uncoded 06/25/24 08:19 Review of Systems Sugical H&P ROS: Negative: Constitution, Cardiovascular, Respiratory, Neurological, Psychiatric, Hem-Onc, Allergic/Immunologic, Gastrointestinal, Genitourinary, Musculoskeletal, Integumentary, Endocrine and Eyes/Ears/Nose/Throat Exam Surgical H&P Exam: Normal: HEENT, Normal: Heart, Normal: Lungs, Normal: Extremities, Normal: Abdomen, Normal: Skin and Normal: Neurological Plan Diagnosis/Plan: Unchanged I have reviewed the history and physical and performed a pertinent physical examination on my patient. No changes have occurred unless specified. Time Spent With Patient Time: Total time managing care of this patient today ____ minutes.
[2024-07-12] MEDS: Scopolamine 1.5 MG PATCH.TD.3 TRANSDERMA (08:28)
--- NOTE | 2024-07-12 08:31 | P.BOP_ITS ---
Brief Operative Note Date of Service: 07/12/24 Pre-op diagnosis: Excess skin Post-op diagnosis: same Procedure: PROCEDURE: Panniculectomy with umbilical transposition and bilateral subcutaneous fat flaps, bilateral brachioplasty INDICATION: This a 71 year old female who underwent laparoscopic sleeve gastrectomy on 09/29/2022. She had an excellent result achieving a BMI of 26.9 kg/m2 with a total weight loss of 89.8lbs, or 33.7% of her TBWL. As a result, she has developed panniculitis which has not resolved despite continuous use of clotrimazole ointment as well as skin irritation and intetrigo in both upper arms. On exam she has extreme skin laxity due to massive weight loss and age with the abdominal pannus completely hiding the genitalia and the upper arms 6 cm below the level of the triceps. Panniculectomy with bilateral brachioplasty was recommended. We discussed the two options for the panniculectomy of using a combined vertical and horizontal incisions or just a horizontal (bikini) incision. It was my recommendation to do only horizontal incision based on her body habitus and skin laxity. The patient agreed with this. Risks and complications were discussed with the patient including bleeding, infection, umbilical loss, flap necrosis, asymmetry, dehiscence, seroma, VTE. The patient understood the risks and was in agreement to proceed with surgery. PROCEDURE: The incisions were appropriately marked at the preop area with the patient standing and laying down. After induction of general anesthesia a Kong catheter and pneumatic compression devices were placed. The patient was prepped and draped in the usual sterile manner and the incisions were marked again and confirmed. In similar fashion both upper arms were also marked when the patient was standing. The upper arms were performed first. The skin was infiltrated with lidocaine and epinephrine. Skin was excised with the #15 blade. Cautery was used to separate the skin from subcutaneous tissues. Careful attention was paid to make sure that the plain of excision was superficial as close to the skin as possible. The right upper arm skin was 19 cm x 9 cm and the left 21 cm x 7 cm. Skin was closed in two layers using interrupted 3.0 Monocryl sutures for the dermis and 4.0 subcuticular Monocryl suture for the skin. The skin was infiltrated with lidocaine and epinephrine. The #10 blade scalpel was used for the large incisions and the #15 blade scalpel for the umbilicus. Cautery was used to divide the subcutaneous tissues until the fascia was identified. Then I used the cautery to separate the pannus from the fascia. The inferior incision was made initially and I mobilized the flap for a several centimeters cephalad to the umbilicus. The umbilicus was incised circumferentially and detached from the surrounding tissues all the way to the fascia while its stalk was preserved. With the patient in reflex position I confirmed that the skin flaps were appropriate and would allow for the tissues to come together with reasonable tension. At that point a horizontal incision was made 4 cm above the umbilicus. #10 blade was used for the skin, cautery for the dermis and for the remaining tissues. A subcutaneous fat flap was raised from the upper skin flap in order to fill the space under the skin and support the closure of the two flaps. In addition the inferior flap was mobilized caudally for a few centimeters to create a space for the subcutaneous fat flap as well as relieve tension from the closure. A circumferential incision was made at the area where the umbilicus would be re-implanted. The umbilicus was appropriately oriented and was delivered through the defect and was secured in place with a [place]. No bleeding was noted anywhere. One COURT drain was placed from the left corner of the horizontal incision across the wound and was secured in place with a silk suture. The subcutaneous fat flap was secured under the inferior flap with several interrupted 3.0 Monocryl sutures. The two flaps were brought together and were attached at the midline of the horizontal incision with a #3.0 Monocryl suture. At that point the umbilicus was properly oriented and was re-approximated to the skin with 8 interrupted 3.0 Monocryl sutures. In a similar fashion the skin flaps were re-approximated with multiple 3.0 Monocryl sutures. The skin was closed in all incisions and umbilicus with 4.0 Monocryl sutures. Steri-strips, xeroform gauzes and gauzes were used to cover the incisions. An abdominal binder was also placed. The was awaken and was transferred to the recover room in a stable condition. I was present and performed the entire procedure. Mr. Oleary was the medical library assistant. Slade Huff MD, PhD, FACS Surgeon: Dave Huff MD Surgeon: Dave Huff MD Anesthesia: GETA and local Was an Software Engineer Developer used for this Procedure?: No Software Engineer Developer: Anahi Foote Estimated blood loss (mL): 10 IV fluids (mL): 2,000 Urine output (mL): 400 Pathology: other (1) Left upper arm, 2) Right upper arm, 3) abdominal pannus) Condition: stable Disposition: PACU
[2024-07-12] MEDS: fentaNYL citrate/PF 100 MCG/2 ML VIAL 25 MCG IVPUSH ×4 (14:25→16:35)
[2024-07-12] MEDS: Haloperidol Lactate 5 MG/ML VIAL 1 MG IVPUSH (16:35)
[2024-07-12] MEDS: Acetaminophen 1,000 MG/100 ML PIGGYBACK 400 MG IV (17:21)
[2024-07-12] MEDS: cephALEXin 500 MG CAPSULE PO (19:59)
--- NOTE | 2024-07-12 20:46 | PHA.MEDREC ---
Addendum entered by Raeann Scherer RPh 07/12/24 21:07: Reviewed by [facility] Original Note: Pharmacy Consult ? Medication Reconciliation Pharmacy has completed the medication reconciliation. Spoke with patient and I confirmed her medications. The patient confirmed she has Cephalexin and Ondansetron tablets at home that she was suppose to start after the surgery. She confirmed she uses the hydrochlorothiazide 25mg tab and cuts it in half as needed if her blood pressure gets too high. She confirmed she is still has the Triamcinolone topical as needed at home for skin irritation. She confirmed she last took her medications yesterday.
[2024-07-12] MEDS: Melatonin 3 MG TABLET 9 MG PO (21:37)
[2024-07-12] MEDS: Acetaminophen 1,000 MG/100 ML PIGGYBACK 16.7 MG IV (22:29)
[2024-07-12] MEDS: 0.9 % Sodium Chloride Flush 3 ML SYRINGE IVFLUSH (22:29)
[2024-07-13 03:36] VITALS: BP 105/60; PULSE 72; RESP 18; TEMP 36.4; O2SAT 100
[2024-07-13] MEDS: Acetaminophen 1,000 MG/100 ML PIGGYBACK 16.7 MG IV ×4 (04:47→22:50)
[2024-07-13 06:27] LABS: MANUAL DIFF FLAG NO
[2024-07-13 06:36] LABS: Basophils Percent Auto 0.4 % (0-2); Eosinophils Absolute Auto 0.1 X10*3/uL (0.0-0.4); Eosinophils Percent Auto 1.9 % (0-4); Hematocrit 34.5 % (37.0-47.0); Hemoglobin 11.6 g/dl (12.0-16.0); Imm Gran Abs Auto 0.02 X10*3/uL (0.00-0.03); Imm Gran Pct Auto 0.3 % (0.0-0.4); Lymphocytes Absolute Auto 1.3 X10*3/uL (1.2-4.9); Lymphocytes Percent Auto 18.2 % (20-40); Mean Corpuscular HGB Conc 33.6 g/dl (31.0-35.0); Mean Corpuscular Hemoglobin 30.9 pg (27.0-33.0); Mean Platelet Volume 11.6 fL (9.4-12.3); Monocytes Absolute Auto 0.6 X10*3/uL (0.1-1.2); Monocytes Percent Auto 9.2 % (2-11); Neutrophils Absolute Auto 4.9 x10*3/uL (2.0-8.3); Platelet Count 245 X10*3/uL (160-400); Red Blood Count 3.75 X10*6/uL (4.20-5.50)
[2024-07-13 06:58] LABS: Anion Gap 10 (12-20); Blood Urea Nitrogen 13 mg/dL (9-16); Calcium 8.6 mg/dL (8.4-10.2); Carbon Dioxide 29 mmol/L (22-29); Chloride 105 mmol/L (96-108); Creatinine Clr Calc Pharmacy 111.3; Estimated Glomerular Filt Rate > 60; Glucose Random 104 mg/dL (60-115); Potassium 3.2 mmol/L (3.3-5.1); Sodium 141 mmol/L (135-145)
[2024-07-13 07:18] VITALS: BP 119/56; PULSE 79; RESP 16; TEMP 36.2; O2SAT 97
--- NOTE | 2024-07-13 07:49 | PM.PNGS ---
Subjective Subjective Date of Service: 07/13/24 Interval history: Was admitted after surgery due to reporting inability to lift her right arm and lack of sensation at the right arm, forearm and hand. Has not improved overnight. Minimal pain at the incisions Physical Exam Vital Signs: Vital Signs: Last Vital Signs Temp 97.1 F 07/13/24 07:18 Pulse 79 07/13/24 07:18 Resp 16 07/13/24 07:18 BP 119/56 L 07/13/24 07:18 Pulse Ox 97 07/13/24 07:18 O2 Del Method Room Air 07/13/24 07:18 O2 Flow Rate 8 07/12/24 14:10 BMI result Body Mass Index 27.8 Const: Orientation/consciousness: patient oriented x3 GI: Inspection: Yes normal to inspection, Yes incision (healing well, umbilicus appears viable) and Yes other (drain with serosanguinous fluid) Palpation (GI): Soft to palpation Neuro: General: patient oriented x3, moves all extremities (Cannot lift her right arm and reduced mobility of the elbow joint), decrease sensation to monofilament (right hand) and absent sensation to monofilament (right arm and forearm) Extrem: Right upper extremity: shoulder/upper arm (dressing intact without blood stains. Arm soft) Left upper extremity: shoulder/upper arm (dressing intact without blood stains. Arm soft) Objective Data Active Medications Cephalexin HCl (Cephalexin 500 Mg Capsule) 500 mg PO Q12H [facility] Last Admin: 07/12/24 19:59 Dose: 500 mg Documented By: KATIAQC Diphenhydramine HCl (Diphenhydramine Hcl 25 Mg Capsule) 50 mg PO ONCE PRN PRN Reason: Insomnia Docusate Sodium (Docusate Sodium 100 Mg Capsule) 100 mg PO DAILY [facility] Hydralazine HCl (Hydralazine Hcl 20 Mg/Ml Vial) 10 mg IVPUSH Q6H PRN PRN Reason: hypertension Hydromorphone HCl (Hydromorphone Hcl 0.5 Mg/0.5 Ml Syringe) 0.25 mg IVPUSH Q4H PRN; Protocol PRN Reason: Pain, Severe (Pain Scale 7-10) Acetaminophen (Ofirmev) 1,000 mg in 100 mls @ 16.7 mls/hr IV .Q6H [facility] Last Admin: 07/13/24 04:47 Dose: 16.7 mls/hr Documented By: AUDI Ondansetron HCl (Ondansetron Hcl 4 Mg/2 Ml Vial) 4 mg IVPUSH Q8H PRN PRN Reason: Nausea Sodium Chloride (0.9 % Sodium Chloride Flush 3 Ml Syringe) 3 ml IVFLUSH QSHIFT [facility] Last Admin: 07/12/24 22:29 Dose: 3 ml Documented By: AUDI Labs 07/13/24 05:34 07/13/24 05:34 Labs: Laboratory Results - last 24 hr 07/13/24 05:34 MCV 92.0 MCH 30.9 MCHC 33.6 RDW 14.0 Plt Count 245 MPV 11.6 Immature Gran % (Auto) 0.3 Neut % (Auto) 70.0 Lymph % (Auto) 18.2 L [place] % (Auto) 9.2 Eos % (Auto) 1.9 Baso % (Auto) 0.4 Lymph # (Auto) 1.3 [place] # (Auto) 0.6 Eos # (Auto) 0.1 Baso # (Auto) 0.0 Abs Immat Gran (auto) 0.02 Absolute Neuts (auto) 4.9 Absolute Nucleated RBC 0.000 Nucleated RBC % (auto) 0.0 Anion Gap 10 L Estim Creat Clear Calc 111.3 Estimated GFR > 60 Random Glucose 104 Calcium 8.6 D Procedures Date of Service Date of Service: 07/13/24 Progress Note: A&P Assessment and plan (1) S/P brachioplasty: Status: Acute Assessment and Plan: 1) possible brachial plexus injury at right upper extremity due to positional stretching during surgery 2) Neurology and OT consult 3) 1000mcg vitamin B12 IM 4) Will change all dressings later today D/w patient the plan Time Spent With Patient Time: Total time managing care of this patient today ____ minutes. Quality Stroke Does the patient have a stroke diagnosis?: No VTE Prior VTE?: No VTE Risk Level:: Surgical - moderate VTE Device Contraindication: N/A - Device Ordered VTE Drug Contraindication: Treatment Not Indicated
[2024-07-13] MEDS: cephALEXin 500 MG CAPSULE PO ×2 (08:57→20:23)
[2024-07-13] MEDS: Docusate Sodium 100 MG CAPSULE PO (08:57)
[2024-07-13] MEDS: HYDROmorphone HCl 0.5 MG/0.5 ML SYRINGE 0.25 MG IVPUSH ×3 (08:57→20:40)
[2024-07-13] MEDS: 0.9 % Sodium Chloride Flush 3 ML SYRINGE IVFLUSH ×2 (08:58→16:50)
[2024-07-13] MEDS: hydroCHLOROthiazide 12.5 MG TABLET PO (09:04)
--- NOTE | 2024-07-13 09:32 | HO.POSTANES ---
Post Anesthesia Evaluation Post Anesthesia Evaluation Date of Service: 07/13/24 Vital Signs: Vital Signs Temp Pulse Resp BP Pulse Ox O2 Del Method 07/13/24 07:18 97.1 F 79 16 119/56 L 97 Room Air 07/13/24 03:36 97.6 F 72 18 105/60 100 Room Air 07/12/24 23:36 97.2 F 85 18 101/55 L 97 Room Air Anesthesia: General Endotracheal-GETA Mental Status: Awake Pain Control: Satisfactory Nausea/Vomiting: None Hydration: Adequate Anesthesia-Related Issues: No Anes. Related Issues Comments: right brachial plexus injury from surgical positioning likely , neurology consult per surgeon
--- NOTE | 2024-07-13 10:28 | PM.NEUROCN ---
History of Present Illness Data of Consult Service Date: 07/13/24 Primary Care Provider: Melisa Robb PA-C HPI Reason for consult: Right arm and hand weakness 59 years old woman who recently had surgery for loose skin from weight loss. Probably the under arm skin was removed. After surgery she has been complaining of numbness and weakness of right upper extremity. There was no complaint of any significant neck pain. Review of Systems Review of Systems: Recent bariatric surgery PMFSH Past Medical History Medical History Dysplastic nevus Hx of transfusion of packed red blood cells Arthritis BMI 34.0-34.9,adult Hx of ectopic PONV (postoperative nausea and vomiting) History of diverticulitis Thyroid nodule Insomnia DJD (degenerative joint disease) Hypertension Morbid obesity Family History Family History Mother Hypertension Father Hypertension Sister No problems noted. Sister No problems noted. Sister No problems noted. Sister No problems noted. Sister Hypertension Stroke Brother No problems noted. Surgical History Surgical History H/O tubal ligation S/P laparoscopic sleeve gastrectomy Hx of cholecystectomy Hx of colonoscopy Hx of hysterectomy, total Social History Social History Household Members: Children Household Members Other:: lives with daughter Housing: House Are you a primary pediatric critical care nurse to a significant other at home: No Do you presently have visiting nurse or other home services: No Alcohol intake: current Alcohol intake frequency: holidays/special occasions only Patient Tobacco Use Status: Never used Tobacco Second Hand Smoke Exposure: No Use of substances other than those prescribed or required for medical reasons: No Currently Displaying Signs/Symptoms of Drug Intoxication Withdrawal: No Have you been hit, kicked, punched, or otherwise hurt by someone within the past year? If so, by whom?: No Do you feel safe in your current relationship?: No Current Relationship Is there a partner from a previous relationship who is making you feel unsafe now?: No Are you made to feel afraid or neglected: No Are you DNR?: No Advance Directives: No Advance Directives Information Provided: Yes Advance Directives on File: No Do you have a plan to hurt others: No Plan Recently lost weight without trying: No How much weight loss: Not applicable Eating poorly because of decreased appetite: No Nutrition screen score: 0 Nutrition Risks: No Nutritional Risk Patient : No : No Poor oral hygiene: No service: No Meds Allergies Allergy/AdvReac Type Severity Reaction Status Date / Time SODIUM PEN Allergy Mild Nausea Uncoded 06/25/24 08:19 Active Medications: Current Medications Cephalexin HCl (Cephalexin 500 Mg Capsule) 500 mg PO Q12H [facility] Last Admin: 07/13/24 08:57 Dose: 500 mg Diphenhydramine HCl (Diphenhydramine Hcl 25 Mg Capsule) 50 mg PO ONCE PRN PRN Reason: Insomnia Docusate Sodium (Docusate Sodium 100 Mg Capsule) 100 mg PO DAILY [facility] Last Admin: 07/13/24 08:57 Dose: 100 mg Hydralazine HCl (Hydralazine Hcl 20 Mg/Ml Vial) 10 mg IVPUSH Q6H PRN PRN Reason: hypertension Hydrochlorothiazide (Hydrochlorothiazide 12.5 Mg Tablet) 12.5 mg PO DAILY [facility]; Protocol Last Admin: 07/13/24 09:04 Dose: 12.5 mg Hydromorphone HCl (Hydromorphone Hcl 0.5 Mg/0.5 Ml Syringe) 0.25 mg IVPUSH Q4H PRN; Protocol PRN Reason: Pain, Severe (Pain Scale 7-10) Last Admin: 07/13/24 08:57 Dose: 0.25 mg Acetaminophen (Ofirmev) 1,000 mg in 100 mls @ 16.7 mls/hr IV .Q6H [facility] Last Admin: 07/13/24 04:47 Dose: 16.7 mls/hr Melatonin (Melatonin 3 Mg Tablet) 9 mg PO BEDTIME [facility] Ondansetron HCl (Ondansetron Hcl 4 Mg/2 Ml Vial) 4 mg IVPUSH Q8H PRN PRN Reason: Nausea Sodium Chloride (0.9 % Sodium Chloride Flush 3 Ml Syringe) 3 ml IVFLUSH QSHIFT [facility] Last Admin: 07/13/24 08:58 Dose: 3 ml Home Medications ?Medication ?Instructions ?Recorded ?Confirmed ?Last Taken ?Type losartan 25 mg tablet 25 mg PO DAILY 07/12/23 07/12/24 07/11/24 History acetaminophen 500 mg tablet 500 mg PO DAILY 06/28/24 07/12/24 07/11/24 History potassium citrate 99 mg capsule 99 mg PO DAILY 06/28/24 07/12/24 07/11/24 History triamcinolone acetonide 0.1 % 1 appl topical BID PRN Skin 06/28/24 07/12/24 Unknown History topical cream Irritation acetaminophen 500 mg tablet 500 mg PO Q6H PRN Pain 07/12/24 07/12/24 Unknown History biotin 1 mg capsule 1 mg PO DAILY 07/12/24 07/12/24 07/11/24 History hydrochlorothiazide 25 mg tablet 12.5 mg PO DAILY PRN High Blood 07/12/24 07/12/24 Unknown History Pressure melatonin 10 mg tablet 20 mg PO DAILY PRN Sleep 07/12/24 07/12/24 Unknown History multivitamin 1 tab PO DAILY 07/12/24 07/12/24 07/11/24 History Physical Exam Vital Signs: Vital Signs: Last Vital Signs Temp 97.1 F 07/13/24 07:18 Pulse 79 07/13/24 07:18 Resp 16 07/13/24 07:18 BP 119/56 L 07/13/24 07:18 Pulse Ox 97 07/13/24 07:18 O2 Del Method Room Air 07/13/24 07:18 O2 Flow Rate 8 07/12/24 14:10 BMI result Body Mass Index 27.8 Neuro: Other: She is alert and awake with normal spontaneity of speech fluency comprehension and anxious affect. Both arms or in dressing and right is in a brace. She is able to open and close her right hand and squeeze my finger. She is able to flex and extend her elbow but minimally. She is not raising her arm against gravity. Brachioradialis biceps and triceps reflexes were difficult to determine but seems to be intact. Results Labs 07/13/24 05:34 07/13/24 05:34 Labs: Short CBC 07/13/24 Range/Units 05:34 WBC 7.0 (4.8-10.8) X10*3/uL Hgb 11.6 L (12.0-16.0) g/dl Hct 34.5 L (37.0-47.0) % Plt Count 245 (160-400) X10*3/uL BMP 07/13/24 05:34 Sodium 141 Potassium 3.2 L Chloride 105 Carbon Dioxide 29 BUN 13 Creatinine 0.63 Calcium 8.6 D Assessment and Plan (1) Arm weakness: Status: Acute There probably is some impact on right brachial plexus either from posturing or possible hematoma but that seems unlikely because the surgical place was to far away. My recommendation is reassurance and education, and an MRI of right brachial plexus with and without contrast to rule out any possibility of either infectious or mechanical etiology impacting the plexus. I also recommend involving PT OT. I am not sure if a medicine leg prednisone can be given as she just had significant surgery. Conservative management is recommended. As far as performing an EMG nerve conduction study, it might not be feasible or useful in acute setting and could be considered, if needed, in couple of months. Procedures Date of Service Date of Service: 07/13/24
[2024-07-13 12:00] VITALS: BP 113/56; PULSE 80; RESP 16; TEMP 36.6; O2SAT 96
[2024-07-13] MEDS: Potassium Chloride ER 20 MEQ TAB.ER.PRT PO (13:11)
[2024-07-13 16:00] VITALS: BP 128/59; PULSE 86; RESP 18; TEMP 36.6; O2SAT 97
[2024-07-13] MEDS: gadobutroL 10 ML VIAL IVPUSH (16:18)
--- NOTE | 2024-07-13 16:21 | MHC.CM.PN ---
CM attempted to see patient x2, off unit. CM will continue attempts to complete assessment.
[2024-07-13 19:04] VITALS: BP 116/69; PULSE 88; RESP 18; TEMP 36.4; O2SAT 97
[2024-07-13] MEDS: Melatonin 3 MG TABLET 9 MG PO (20:23)
[2024-07-13 23:37] VITALS: BP 109/51; PULSE 75; RESP 18; TEMP 36.1; O2SAT 97
[2024-07-14 03:29] VITALS: BP 116/57; PULSE 71; RESP 16; TEMP 36.2; O2SAT 97
[2024-07-14] MEDS: Acetaminophen 1,000 MG/100 ML PIGGYBACK 16.7 MG IV (05:06)
[2024-07-14 07:01] VITALS: BP 131/65; PULSE 79; RESP 18; TEMP 36.1; O2SAT 98
--- NOTE | 2024-07-14 08:44 | MHC.CM.PN ---
Addendum entered by Emili Carrillo 07/14/24 15:53: Patient is discharged to home with [facility]. Her dtr will provide transportation home. Original Note: S/p Surgical intervention for skin removal s/p 100lbs wt loss. Patients dtr lives with her. She is independent with all functional mobility baseline. She will discharge to home with [facility] for wound management education. Patients dtr will provide transportation home.
[2024-07-14] MEDS: cephALEXin 500 MG CAPSULE PO (10:19)
[2024-07-14] MEDS: Potassium Chloride ER 20 MEQ TAB.ER.PRT PO (10:19)
[2024-07-14] MEDS: Docusate Sodium 100 MG CAPSULE PO (10:19)
[2024-07-14] MEDS: hydroCHLOROthiazide 12.5 MG TABLET PO (10:21)
[2024-07-14] MEDS: 0.9 % Sodium Chloride Flush 3 ML SYRINGE IVFLUSH (10:35)
--- NOTE | 2024-07-14 10:54 | W.MHC.F2F ---
Service Date Service Date: 07/14/24 Encounter Date of encounter: 07/14/24 Reasons for Services Signs and symptoms assessed: improved Reason for correction: wound care and postoperative assessment and/or care Reason for occupational therapy: therapeutic exercises and other (right arm paresthesias) Homebound: Leaving the home is medically contraindicated at this time without the asist of a device and/or another person due th the listed conditions above and below. Reason homebound: unable to drive Certification: Based on the above findings, I certify that this patient is confined to the home and needs intermittent correction care, physical therapy and/or speech therapy, or continues to need occupational therapy. The patient is under my care, and I have initiated the establishment of the plan of care. The patient will be followed by a physician who will periodically review the plan of care. Time Spent With Patient Time: Total time managing care of this patient today 25 minutes.
--- NOTE | 2024-07-14 10:58 | P.DS_ITS ---
DS: Providers Provider Date of Service: 07/14/24 Date of discharge: 07/14/24 Primary care physician: Melisa Robb PA-C Consults: 07/13/24 07:46 Consult to Neurology Stat Consulting Provider: [facility] Reason for consultation: right brachialplexopathy w paresis Has provider been notified: No DS: Diagnosis Discharge Diagnosis (1) Arm weakness: Status: Acute DS: Summary Hospital Course Hospital Course: Patient is a pleasant 59-year-old female who underwent an uneventful panniculectomy and bilateral brachioplasty on 07/12/2024. She awoke in PACU with difficulty moving her right arm and paresthesias. She remained in the hospital overnight. 07/13/2024, she was seen by Neurology and recommendation was for brachial plexus MRI. She began to experience neuropathy in her fingers, she could grasp her hand, but could not flex at the elbow or move her right arm. Brachial plexus MRI showed no injury to the brachial plexus nerve bundle, it did show edema which is expected postoperatively. No hematoma or fluid collection was identified. Exam on 07/14/2024 revealed significant improvement with decreased paresthesias in the fingers, sensation noted to the fingers proximal to the mid forearm. Decreased sensation although some sensation from the mid forearm to the arm. She could flex and extend at the elbow. And shrug her shoulder. Her incisions remained clean, dry, intact without any evidence of dehiscence or infection. Serosanguineous fluid within the collection bulb appropriate for postop day 2. She has moved her bowels, ambulated without difficulty and is going to be discharged home. We will have nursing and occupational therapy home services. Time Attestation Total time managing care of this patient today: 25 mintues. Discharge Coordination Time (in mins): 25 Quality: Safe Use of Opioids Does Pt have an Active Cancer Diagnosis on the Problem List?: No Quality: Stroke Does the patient have a stroke diagnosis?: No Physical Exam Vital Signs: Vital Signs: Last Vital Signs Temp 96.9 F 07/14/24 07:01 Pulse 79 07/14/24 07:01 Resp 18 07/14/24 07:01 BP 131/65 07/14/24 07:01 Pulse Ox 98 07/14/24 07:01 O2 Del Method Room Air 07/14/24 07:01 O2 Flow Rate 8 07/12/24 14:10 BMI result Body Mass Index 27.8 Const: General: no acute distress, well developed and alert Orientation/consciousness: patient oriented x3 Resp: Effort & Inspection: normal respiratory effort Auscultation: clear to auscultation bilaterally Cardio: Rate: regular rate Rhythm: regular rhythm Skin: Other: Incisions are clean, dry, intact. Umbilicus is viable. Neuro: Other: Extremities x3 were normal. Right upper extremity shows slight decrease in grasp strength although improved from yesterday, minimal paresthesias to the fingers. Decreased sensation to light touch from midforearm through arm. Able to spontaneously grasp, flex and extend at the elbow and shrug her shoulder. Unable to flex or extend at the shoulder. General: patient oriented x3 DS: Data Data Completed and Pending Completed studies during hospitalization [Text1]: Pending at discharge 07/12/24 13:05 Surgical [PTH] Routine Procedures Excision of Stomach, Percutaneous Endoscopic Approach, Vertical (09/29/22) Discharge Plan Discharge Patient Disposition: Home Health Service Referrals: Katty JACOBSEN [Outside] - 1 Week Melisa Robb PA-C [Primary Care Provider] - 1 Week Discharge Medications: New cephalexin 500 mg Capsule 500 mg PO Q12H Qty: 1 0RF Continued triamcinolone acetonide 0.1 % cream 1 appl topical BID PRN (Reason: Skin Irritation) Rx Instructions: to be applied in conjunction with the clotrimazole acetaminophen 500 mg Tablet 500 mg PO DAILY potassium citrate 99 mg Capsule 99 mg PO DAILY multivitamin Tablet 1 tab PO DAILY hydrochlorothiazide 25 mg tablet 12.5 mg PO DAILY PRN (Reason: High Blood Pressure) biotin 1 mg Capsule 1 mg PO DAILY acetaminophen 500 mg Tablet 500 mg PO Q6H PRN (Reason: Pain) losartan 25 mg tablet 25 mg PO DAILY docusate sodium [Colace] 100 mg capsule 100 mg PO DAILY Qty: 90 0RF Changed melatonin 10 mg Tablet 10 mg PO DAILY PRN (Reason: Sleep) Qty: 1 0RF Discharge Orders: Discharge Order (Routine); Ordered 07/14/24 Ordered By: Alexis Oleary Activity Restrictions/Additional Instructions: 1) Start Keflex antibiotic 2) No showers. Only sponge baths 3) Avoid any tension on the arms and legs and always have help getting up. Keep them elevated 4) Take 1 tab of Colace and one tablespoon of Metamucil daily Diet: 3 Celebrate 4:1 protein shakes with 1 scoop in 8oz of almond milk each one and one Fit Crunch protein bar until you have a bowel movement. Once you have a bowel movement, please change the meal plan to 2 Celebrate 4:1 shakes, one Fit Crunch protein bar and one meal (4 forkfuls meat and 4 forkfuls of salad) 5) Change dressings daily and send pictures to Dr. Huff. Replace loose s estella-strips and xeroform gauze along the incisions. 6) Supplies needed: Kerlex rolls, 4x4 dressings, xeroform gauze, 1/2'' steri- strips, paper tape. You will need to use several of the above supplies on a daily basis. 7) Avoid heavy lifting for 3 weeks 8) Take Tylenol 500mg every 4 hours, around the clock for the next 3-4 days. If pain has improved you may slowly reduce its frequency 9) Avoid aspirin, Motrin, Aleve, Advil, Naproxyn, Ibuprofen for 2 weeks 7) Call Dr. Huff at [phone] for fever >101F, persistent incisional pain,, discharge from any of the incisions, swelling, redness, shortness of breath, calf pain, drain output more than 150ml per day. Print Language: Niuean
--- NOTE | 2024-07-14 11:06 | PM.PNGS ---
Subjective Subjective Date of Service: 07/14/24 Patient reports: no new complaints, feels better, tolerating a regular diet and bowel movement Interval history: Significant improvement in right arm paresthesia. Now able to flex at the elbow. Decreased neuropathy distally at the fingers. No significant abdominal pain or incisional pain of the arms. Physical Exam Vital Signs: Vital Signs: Last Vital Signs Temp 96.9 F 07/14/24 07:01 Pulse 79 07/14/24 07:01 Resp 18 07/14/24 07:01 BP 131/65 07/14/24 07:01 Pulse Ox 98 07/14/24 07:01 O2 Del Method Room Air 07/14/24 07:01 O2 Flow Rate 8 07/12/24 14:10 BMI result Body Mass Index 27.8 Const: Orientation/consciousness: patient oriented x3 Resp: Effort & Inspection: normal respiratory effort Auscultation: clear to auscultation bilaterally Skin: Other: Incisions clean, dry, intact. Umbilicus is viable. No evidence of infection. Neuro: Other: Spontaneous flexion and extension at the elbow. Slight decrease in right oil deliverer strength. No significant color change or temperature change between right and left hand. General: patient oriented x3 Objective Data Active Medications Cephalexin HCl (Cephalexin 500 Mg Capsule) 500 mg PO Q12H [facility] Last Admin: 07/14/24 10:19 Dose: 500 mg Documented By: SALBADOR Diphenhydramine HCl (Diphenhydramine Hcl 25 Mg Capsule) 50 mg PO ONCE PRN PRN Reason: Insomnia Docusate Sodium (Docusate Sodium 100 Mg Capsule) 100 mg PO DAILY [facility] Last Admin: 07/14/24 10:19 Dose: 100 mg Documented By: SALBADOR Hydralazine HCl (Hydralazine Hcl 20 Mg/Ml Vial) 10 mg IVPUSH Q6H PRN PRN Reason: hypertension Hydrochlorothiazide (Hydrochlorothiazide 12.5 Mg Tablet) 12.5 mg PO DAILY [facility]; Protocol Last Admin: 07/14/24 10:21 Dose: 12.5 mg Documented By: SALBADOR Hydromorphone HCl (Hydromorphone Hcl 0.5 Mg/0.5 Ml Syringe) 0.25 mg IVPUSH Q4H PRN; Protocol PRN Reason: Pain, Severe (Pain Scale 7-10) Last Admin: 07/13/24 20:40 Dose: 0.25 mg Documented By: ROSALINDA Acetaminophen (Ofirmev) 1,000 mg in 100 mls @ 16.7 mls/hr IV .Q6H [facility] Last Admin: 07/14/24 05:06 Dose: 16.7 mls/hr Documented By: PAULINE Melatonin (Melatonin 3 Mg Tablet) 9 mg PO BEDTIME [facility] Last Admin: 07/13/24 20:23 Dose: 9 mg Documented By: ROSALINDA Ondansetron HCl (Ondansetron Hcl 4 Mg/2 Ml Vial) 4 mg IVPUSH Q8H PRN PRN Reason: Nausea Potassium Chloride (Potassium Chloride Er 20 Meq Tab.Er.Prt) 20 meq PO DAILY [facility] Last Admin: 07/14/24 10:19 Dose: 20 meq Documented By: SALBADOR Sodium Chloride (0.9 % Sodium Chloride Flush 3 Ml Syringe) 3 ml IVFLUSH QSHIFT [facility] Last Admin: 07/14/24 10:35 Dose: 3 ml Documented By: SALBADOR Labs 07/13/24 05:34 07/13/24 05:34 Procedures Date of Service Date of Service: 07/14/24 Progress Note: A&P Assessment and plan (1) Arm weakness: Status: Acute Assessment and Plan: Likely positional. No evidence of brachial nerve injury or compression on MRI. We will have home OT. Suspect she will have full recovery (2) S/P brachioplasty: Status: Acute Assessment and Plan: Continue dressing changes as ordered. Continue home VNA. Return to the office on 07/20/2024 for follow-up Plan Case discussed with Dr. Huff. Patient is safe for discharge home Time Spent With Patient Time: Total time managing care of this patient today ____ minutes. Quality Stroke Does the patient have a stroke diagnosis?: No VTE Prior VTE?: No VTE Risk Level:: Surgical - moderate VTE Device Contraindication: N/A - Device Ordered VTE Drug Contraindication: Treatment Not Indicated
[2024-07-14 12:00] VITALS: BP 141/70; PULSE 81; RESP 16; TEMP 36.2; O2SAT 97
[2024-07-14] MEDS: Acetaminophen 325 MG TABLET 650 MG PO (13:05)
[2024-07-14 15:09] VITALS: BP 136/73; PULSE 80; RESP 18; TEMP 36.4; O2SAT 99
== END 2024-07-14 16:55 | disposition home health service (06) ==
LOC: HO.SSS 08:37 → HO.S3 18:34
PROVIDERS: Physician Assistant Surgical; PCP Physician Assistant; Visit Provider Surgery
PROC: 0JB80ZZ Excision of Abdomen Subcutaneous Tissue and Fascia, Open Approach (ICD-10-PCS; CPT 15830; principal; 2024-07-12 08:10)
PROC: (CPT 15836; 2024-07-12 08:10)
DX: L98.7 Excessive and redundant skin and subcutaneous tissue (principal); M79.3 Panniculitis, unspecified; E65 Localized adiposity; L30.4 Erythema intertrigo; L82.1 Other seborrheic keratosis; G97.82 Other postprocedural complications and disorders of nervous system; R20.0 Anesthesia of skin; Z98.84 Bariatric surgery status; Z90.3 Acquired absence of stomach [part of]; Z98.890 Other specified postprocedural states
CPT/HCPCS: 15830; 15847; 15836; 36415; 71552; 80048; 80053; 85025; 85610; 85730; 86850; 86900; 86901; 88304; 88305; 97167; A9585; J0131; J0690; J1100; J1171; J1630; J2003; J2004; J2250; J2405; J2704; J3010; J3370

== ENCOUNTER → 2024-07-12 06:01 | Outpatient (BNV) | payer OTHER, SELFPAY | PROVIDERS: PCP Physician Assistant; Visit Provider Psychiatry & Neurology Neurology | DX: R29.898 Other symptoms and signs involving the musculoskeletal system (principal) | CPT/HCPCS: 99221 ==

== ENCOUNTER → 2024-07-12 06:01 | Outpatient (BNV) | payer OTHER, SELFPAY | PROVIDERS: PCP Physician Assistant; Visit Provider Physician Assistant Surgical | DX: M79.3 Panniculitis, unspecified (principal); L98.7 Excessive and redundant skin and subcutaneous tissue | CPT/HCPCS: 15830; 15836; G0180 ==

== ENCOUNTER → 2024-07-13 15:26 | Outpatient (BNV) | payer OTHER, SELFPAY | PROVIDERS: PCP Physician Assistant; Visit Provider Radiology Diagnostic Radiology | DX: E04.2 Nontoxic multinodular goiter (principal) | CPT/HCPCS: 71552 ==

== ENCOUNTER 2024-07-20 15:25 | Outpatient (AMB) | payer OTHER, SELFPAY ==
--- OUTSIDE RECORDS SUMMARY | 2024-07-20 15:27 | XMS_ITS | Clinical Summary ---
Author Organization [facility] Address [address] [place] [address] Care Team Providers Care Banana Grader Name Role Phone System, Provider Not In [...] age to complete this topic Care Teams Banana Grader Relationship Specialty Start Date End Date System, Provider Not In PCP - General 09/27/21
--- NOTE | 2024-07-20 16:30 | MHC.OFFVISWM ---
Intake Visit Reasons: (OV) s/p Pannic/Brachio 07/12/24-see comment Allergies SODIUM PEN Allergy (Mild, Uncoded 06/25/24 08:19) Nausea Medication List - Last Reconciled 07/20/24 by BERTIN Grubbs acetaminophen 500 mg PO Q6H PRN biotin 1 mg PO DAILY cephalexin 500 mg PO Q12H docusate sodium (Colace) 100 mg PO DAILY hydrochlorothiazide 12.5 mg PO DAILY PRN losartan 25 mg PO DAILY melatonin 10 mg PO DAILY PRN multivitamin 1 tab PO DAILY potassium citrate 99 mg PO DAILY triamcinolone acetonide 0.1% 1 appl topical BID PRN HPI Comments Details: Pt is 8 days s/p panniculectomy and bilateral brachioplasty. No fevers at home. Tolerating high protein meal plan. Taking abx. Drain output has been 40-50cc/day. Her right arm weakness has much improved. 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 She has regained more sensation in her arm and her only numbness now is of upper right arm. [facility] Medical History Dysplastic nevus Hx of transfusion of packed red blood cells Arthritis BMI 34.0-34.9,adult Hx of ectopic PONV (postoperative nausea and vomiting) History of diverticulitis Thyroid nodule Insomnia DJD (degenerative joint disease) Hypertension Morbid obesity Surgical History H/O tubal ligation S/P laparoscopic sleeve gastrectomy Hx of cholecystectomy Hx of colonoscopy Hx of hysterectomy, total Family History Mother Hypertension Father Hypertension Sister No problems noted. Sister No problems noted. Sister No problems noted. Sister No problems noted. Sister Hypertension Stroke Brother No problems noted. Social History Household Members: Children Household Members Other:: lives with daughter Housing: House Are you a primary home care manager to a significant other at home: No Do you presently have visiting nurse or other home services: No Alcohol intake: current Alcohol intake frequency: holidays/special occasions only Comment: pt reminded to use call light when need assistance to bathroom Patient Tobacco Use Status: Never used Tobacco Second Hand Smoke Exposure: No service: No Physical Exam Const General: cooperative, comfortable and no acute distress Orientation/consciousness: patient oriented x3 GI Other: soft, nontender, nondistended steri-strips c/d/i with all incisions healing well, umbilicus viable, drain output sanguinous Skin Other: both incisions of upper arms healing well, no open areas, no erythema, some expected bruising with one small skin blister of left arm Neuro General: patient oriented x3 Assessment & Plan Assessment & Plan (1) S/P brachioplasty: Code(s): Z98.890 - Other specified postprocedural states Category: Surgical (2) Overweight (BMI 25.0-29.9): Code(s): E66.3 - Overweight Category: Medical (3) S/P panniculectomy: Code(s): Z98.890 - Other specified postprocedural states Category: Surgical Plan Continue high protein diet. ABX keflex 500 BID x 2 weeks, extended as needed?(at least until drain comes out plus 1 week).? Drain out after consistently 20 mL or less daily.? Abdominal binder at all times except for care x 1 month?MINIMUM. If there are concerns longer.? No driving?until drain out.? No walking outside or exercise for 6 weeks minimum. Walking in the house after 1st appt if we are satisfied with progress. Assistance getting up for 4 weeks minimum.?No lifting greater than?10 pounds x 2 months and no abdominal exercises x 3 months. Arm weakness has very much improved. Continue OT. 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 RTC 1 week.
== END 2024-07-20 16:52 | disposition home or self-care (01) ==
PROVIDERS: PCP Physician Assistant; Visit Provider Physician Assistant Surgical
DX: E66.3 Overweight (principal); Z98.890 Other specified postprocedural states
CPT/HCPCS: 99024

== ENCOUNTER → 2024-07-20 15:25 | Outpatient (BNVA) | payer OTHER, SELFPAY | PROVIDERS: PCP Physician Assistant; Visit Provider Physician Assistant Surgical | DX: E66.3 Overweight (principal); Z98.890 Other specified postprocedural states | CPT/HCPCS: 99212 ==

== ENCOUNTER 2024-07-27 08:24 | Outpatient (AMB) | payer OTHER, SELFPAY ==
--- OUTSIDE RECORDS SUMMARY | 2024-07-27 08:44 | XMS_ITS | Clinical Summary ---
Author Organization [facility] Address [address] [place] [address] Care Team Providers Care Mixologist Name Role Phone System, Provider Not In Primary Care Provider Un available Allergies No known active allergies Medications No known medications Social History Tobacco Use Types Packs/Day Years Used Date Smoking Tobacco: Never Assessed Comments Unknown Sex and Gender Information Value Date Recorded Sex Assigned at Not on file Legal Sex Female 9:04 PM EDT Gender Identity Not on file Sexual Orientation [...] on patient's age to complete this topic Insurance [facility] Care Teams Mixologist Relationship Specialty Start Date End Date System, Provider Not In PCP - General 09/27/21
[2024-07-27 09:03] VITALS: BP 141/79; PULSE 70; TEMP 36.6; O2SAT 99
--- NOTE | 2024-07-27 09:03 | MHC.OFFVISWM ---
VS Expanded 07/27/24 09:03 BP 141/79 H Blood Pressure Location Rt brachial Blood Pressure Position Sitting Pulse 70 Pulse Source Pulse Oximeter Temp 97.8 F Temperature Source Temporal Artery Scan Pulse Oximetry 99 Oxygen Delivery Method Room Air Intake Visit Reasons: (OV) s/p Pannic/Brachio 07/12/24 Allergies SODIUM PEN Allergy (Mild, Uncoded 06/25/24 08:19) Nausea HPI Comments Details: 59-year-old female returns to the office today in follow-up. She is status post panniculectomy and brachioplasty on 07/12/2024. 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 There is improvement in her flexion at the elbow and some deltoid initiation although certainly significantly weak. She saw Neurology as an outpatient, with plan for EMG in early August. She reports a proximally 20-30 mL fluid collection within the abdominal drain daily. Continues antibiotics. [facility] Medical History Dysplastic nevus Hx of transfusion of packed red blood cells Arthritis BMI 34.0-34.9,adult Hx of ectopic PONV (postoperative nausea and vomiting) History of diverticulitis Thyroid nodule Insomnia DJD (degenerative joint disease) Hypertension Morbid obesity Surgical History H/O tubal ligation S/P laparoscopic sleeve gastrectomy Hx of cholecystectomy Hx of colonoscopy Hx of hysterectomy, total Family History Mother Hypertension Father Hypertension Sister No problems noted. Sister No problems noted. Sister No problems noted. Sister No problems noted. Sister Hypertension Stroke Brother No problems noted. Social History Household Members: Children Household Members Other:: lives with daughter Housing: House Are you a primary wound care technician to a significant other at home: No Do you presently have visiting nurse or other home services: No Alcohol intake: current Alcohol intake frequency: holidays/special occasions only Comment: pt reminded to use call light when need assistance to bathroom Patient Tobacco Use Status: Never used Tobacco Second Hand Smoke Exposure: No service: No Physical Exam Skin Other: Bilateral arm, transverse abdominal and umbilical incisions all healing nicely. No evidence of dehiscence or infection. 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 Continue monitoring incision (3) S/P panniculectomy: Code(s): Z98.890 - Other specified postprocedural states Category: Surgical Plan: Continue abdominal binder, antibiotics, meal plan. Return to the office 1 week.
== END 2024-07-27 09:16 | disposition home or self-care (01) ==
LOC: HO.HBS 08:24
PROVIDERS: PCP Physician Assistant; Visit Provider Physician Assistant Surgical
DX: R29.898 Other symptoms and signs involving the musculoskeletal system (principal); Z98.890 Other specified postprocedural states
CPT/HCPCS: 99024

== ENCOUNTER → 2024-07-27 08:24 | Outpatient (BNVA) | payer OTHER, SELFPAY | PROVIDERS: PCP Physician Assistant; Visit Provider Physician Assistant Surgical | DX: Z48.817 Encounter for surgical aftercare following surgery on the skin and subcutaneous tissue (principal); R29.898 Other symptoms and signs involving the musculoskeletal system; Z98.890 Other specified postprocedural states | CPT/HCPCS: 99212 ==

== ENCOUNTER 2024-08-02 08:56 | Outpatient (AMB) | payer OTHER, SELFPAY ==
--- NOTE | 2024-08-02 08:57 | MHC.OFFVISWM ---
VS Expanded 08/02/24 09:15 BP 130/90 H Blood Pressure Location Rt brachial Blood Pressure Position Sitting Pulse 77 Pulse Source Pulse Oximeter Temp 97.3 F Temperature Source Temporal Artery Scan Pulse Oximetry 99 Oxygen Delivery Method Room Air Intake Visit Reasons: (OV) s/p Pannic/Brachio 07/12/24 Allergies SODIUM PEN Allergy (Mild, Uncoded 06/25/24 08:19) Nausea HPI Comments Details: 59-year-old female returns to the office today in follow-up. She is status post panniculectomy and brachioplasty on 07/12/2024. 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 There is improvement in her flexion at the right elbow to approximately 45 degrees and some deltoid initiation although unable to flex, extend or rotate at the shoulder. She saw Neurology as an outpatient, with plan for EMG August 15. She reports approximately 25 mL fluid collection within the abdominal drain daily. Continues antibiotics. [facility] Medical History (Updated 07/22/24 @ 00:02 by Caridad Su) BMI 35.0-35.9,adult Constipation BMI 36.0-36.9,adult BMI 37.0-37.9, adult Obesity Abnormal EKG Dysplastic nevus Hx of transfusion of packed red blood cells Arthritis BMI 34.0-34.9,adult Hx of ectopic PONV (postoperative nausea and vomiting) History of diverticulitis Thyroid nodule Insomnia DJD (degenerative joint disease) Hypertension Morbid obesity Surgical History (Updated 08/02/24 @ 09:16 by Destini Presley CMA) S/P panniculectomy H/O tubal ligation S/P laparoscopic sleeve gastrectomy Hx of cholecystectomy Hx of colonoscopy Hx of hysterectomy, total Family History Mother Hypertension Father Hypertension Sister No problems noted. Sister No problems noted. Sister No problems noted. Sister No problems noted. Sister Hypertension Stroke Brother No problems noted. Social History Household Members: Children Household Members Other:: lives with daughter Housing: House Are you a primary career development engineer to a significant other at home: No Do you presently have visiting nurse or other home services: No Alcohol intake: current Alcohol intake frequency: holidays/special occasions only Comment: pt reminded to use call light when need assistance to bathroom Patient Tobacco Use Status: Never used Tobacco Second Hand Smoke Exposure: No service: No Physical Exam GI Other: Transverse and umbilical incisions healing nicely. Three of 4 sutures removed from umbilical incision, leaving the inferior suture in place. About 23 mL of serous fluid within the collection bulb, last drained at noon yesterday Assessment & Plan Assessment & Plan (1) S/P panniculectomy: Code(s): Z98.890 - Other specified postprocedural states Category: Surgical Plan: Transverse and umbilical incision healing nicely. We will maintain drain for 1 more week then remove. Continue current meal plan and antibiotics. (2) S/P brachioplasty: Code(s): Z98.890 - Other specified postprocedural states Category: Surgical Plan: Healing very nicely. No evidence of dehiscence or infection (3) Arm weakness: Code(s): R29.898 - Other symptoms and signs involving the musculoskeletal system Category: Medical Plan: Patient very tearful, ADLs impacted by inability to wash her hair with her right hand, bring her hand to her mouth to eat. She expressed frustration with her physical impairment although states she is trying to do the best that she can. 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 States she continues under the care of Neurology and Physical therapy.
[2024-08-02 09:15] VITALS: BP 130/90; PULSE 77; TEMP 36.3; O2SAT 99
--- OUTSIDE RECORDS SUMMARY | 2024-08-02 09:33 | XMS_ITS | Clinical Summary ---
Author Organization [facility] Address [address] [place] [address] Care Team Providers Care Casing In Line Feeder Name Role Phone System, Provider Not In [...] 2) 2017 Influenza Vaccine 11/10/2023 COVID-19 Vaccine ( - 2023- season) 12/11/202311/2020, 07/26/2020 Insurance [facility] Care Teams Casing In Line Feeder Relationship Specialty Start Date End Date System, Provider Not In PCP - General 09/27/21
== END 2024-08-02 09:39 | disposition home or self-care (01) ==
LOC: HO.HBS 08:57
PROVIDERS: PCP Physician Assistant; Visit Provider Physician Assistant Surgical
DX: Z98.890 Other specified postprocedural states (principal); R29.898 Other symptoms and signs involving the musculoskeletal system
CPT/HCPCS: 99024

== ENCOUNTER → 2024-08-02 08:56 | Outpatient (BNVA) | payer OTHER, SELFPAY | PROVIDERS: PCP Physician Assistant; Visit Provider Physician Assistant Surgical | DX: R29.898 Other symptoms and signs involving the musculoskeletal system (principal); Z98.890 Other specified postprocedural states | CPT/HCPCS: 99212 ==

== ENCOUNTER 2024-08-09 08:38 | Outpatient (AMB) | payer OTHER, SELFPAY ==
[2024-08-09 08:55] VITALS: BP 137/70; PULSE 81; TEMP 36.4; O2SAT 98
--- NOTE | 2024-08-09 08:55 | MHC.OFFVISWM ---
VS Expanded 08/09/24 08:55 BP 137/70 Blood Pressure Location Lt radial Blood Pressure Position Sitting Pulse 81 Pulse Source Pulse Oximeter Temp 97.5 F Temperature Source Temporal Artery Scan Pulse Oximetry 98 Oxygen Delivery Method Room Air Intake Visit Reasons: (OV) s/p Pannic/Brachio 07/12/24 Intake Note: Pt declined any [place] wgt today - provider aware Allergies SODIUM PEN Allergy (Mild, Uncoded 06/25/24 08:19) Nausea HPI Comments Details: Patient is a pleasant 59-year-old female who returns to the office today in follow-up. She is status post panniculectomy and brachioplasty performed on 07/12/2024. She reports approximately 15 mL of serous fluid from the collection bulb on a daily basis. She continues antibiotics. She continues to be under the care of neurology as well as physical therapy for her right arm paresthesia at the shoulder. She has been using a brace to the right arm. She does report improvement. She feels as though the axillary nerve was not cut as she is able to stop her arm from falling forward at a 90 degree position at the elbow. Case was discussed with Radiology and the plan is for repeat MRI for further evaluation and delineation of the axillary nerve. Patient did not wish to have her weight done today as she had on boots and it is difficult for her to take them on and off. [facility] Medical History (Updated 07/22/24 @ 00:02 by Caridad Su) BMI 35.0-35.9,adult Constipation BMI 36.0-36.9,adult BMI 37.0-37.9, adult Obesity Abnormal EKG Dysplastic nevus Hx of transfusion of packed red blood cells Arthritis BMI 34.0-34.9,adult Hx of ectopic PONV (postoperative nausea and vomiting) History of diverticulitis Thyroid nodule Insomnia DJD (degenerative joint disease) Hypertension Morbid obesity Surgical History (Updated 08/02/24 @ 09:16 by Destini Presley CMA) S/P panniculectomy H/O tubal ligation S/P laparoscopic sleeve gastrectomy Hx of cholecystectomy Hx of colonoscopy Hx of hysterectomy, total Family History Mother Hypertension Father Hypertension Sister No problems noted. Sister No problems noted. Sister No problems noted. Sister No problems noted. Sister Hypertension Stroke Brother No problems noted. Social History Household Members: Children Household Members Other:: lives with daughter Housing: House Are you a primary career technical education teacher to a significant other at home: No Do you presently have visiting nurse or other home services: No Alcohol intake: current Alcohol intake frequency: holidays/special occasions only Comment: pt reminded to use call light when need assistance to bathroom Patient Tobacco Use Status: Never used Tobacco Second Hand Smoke Exposure: No service: No Physical Exam Vital Signs: Last Vital Signs Temp 97.5 F 08/09/24 08:55 Pulse 81 08/09/24 08:55 BP 137/70 08/09/24 08:55 Pulse Ox 98 08/09/24 08:55 Oxygen Delivery Method Room Air 08/09/24 08:55 Skin Other: All incisions healing nicely. Approximately 15 mL of serous fluid within the collection bulb since noon yesterday Assessment & Plan Assessment & Plan (1) S/P panniculectomy: Code(s): Z98.890 - Other specified postprocedural states Category: Surgical Plan: Panniculectomy and brachioplasty incisions all healing nicely. Last suture in the inferior position from the umbilicus was removed. Umbilicus remained viable. Drain was removed without difficulty. This was covered with a dry clean dressing. Instructed to avoid showering for the next [address] starting on Tuesday. She will continue to wear her abdominal binder. Continue antibiotics for 1 more week. Return to clinic as scheduled in September. We have decreased the frequency of visits per her request as she has multiple appointments with neurology in physical therapy. (2) Arm weakness: Code(s): R29.898 - Other symptoms and signs involving the musculoskeletal system Category: Medical Plan: Repeat MRI scheduled for 08/19/2024. Continue follow-up with neurology as well as physical therapy. Defer to those specialists for prognosis and further care.
--- OUTSIDE RECORDS SUMMARY | 2024-08-09 08:56 | XMS_ITS | Clinical Summary ---
Author Organization [facility] Address [address] [place] [address] Care Team Providers Care Receiving Checker Name Role Phone System, Provider Not In [...] ( - 2023- season) 12/11/202311/2020, 07/26/2020 Insurance [facility] Care Teams Receiving Checker Relationship Specialty Start Date End Date System, Provider Not In PCP - General 09/27/21
== END 2024-08-09 09:57 | disposition home or self-care (01) ==
LOC: HO.HBS 08:38
PROVIDERS: PCP Physician Assistant; Visit Provider Physician Assistant Surgical
DX: Z98.890 Other specified postprocedural states (principal); R29.898 Other symptoms and signs involving the musculoskeletal system
CPT/HCPCS: 99024

== ENCOUNTER → 2024-08-09 08:38 | Outpatient (BNVA) | payer OTHER, SELFPAY | PROVIDERS: PCP Physician Assistant; Visit Provider Physician Assistant Surgical | DX: Z48.817 Encounter for surgical aftercare following surgery on the skin and subcutaneous tissue (principal); Z98.890 Other specified postprocedural states | CPT/HCPCS: 99212 ==

== ENCOUNTER → 2024-08-26 16:38 | Outpatient (BNV) | payer OTHER, SELFPAY | PROVIDERS: PCP Physician Assistant; Visit Provider Radiology Diagnostic Radiology | DX: M60.9 Myositis, unspecified (principal); G54.2 Cervical root disorders, not elsewhere classified; S14.3XXA Injury of brachial plexus, initial encounter | CPT/HCPCS: 71552 ==

== ENCOUNTER 2024-08-26 16:39 | Outpatient (REF) | payer OTHER, SELFPAY ==
--- NOTE | ~2024-08-26 | MR_ITS ---
CLINICAL HISTORY: R29.898 - Other symptoms and signs involving the musculoskeletal system --- Additio nal Notes or Special Instructions: Right brachial plexus MRI MR brachial plexus with and without contrast Comparison: 07/13/24 Findings: There is new edemaand enhancement within the supraspinatus, infraspinatus and subscapularis muscles. There is new mild muscular atrophy. This likely indicates injury to suprascapular nerve. No mass is present at the suprascapular or spinoglenoid notches. There is edema and enhancement within the C5 and C6 roots and superior trunk of the brachial plexus indicating proximal nerve injury. Impression: Injury to the C5/C6 roots and superior trunk of the brachial plexus involving the suprascapular nerve with associated myositis and mild atrophy of the supraspinatus, infraspinatus and subscapularis muscles. The injury is favored to be post-ganglionic, however further evaluation with high-resolution 3D MR neurography or thin section CT myelography to directly visualize the nerve roots/rootlets is recommended to exclude a pre-ganglionic injury, which has treatment implications. This document has been electronically signed by: Luzma Kincaid MD on 08/27/2024 14:17:13
--- OUTSIDE RECORDS SUMMARY | 2024-08-26 16:46 | XMS_ITS | Clinical Summary ---
Author Organization [facility] Address [address] [place] [address] Care Team Providers Care Patient Care Technician Instructor Name Role Phone System, Provider Not In [...] Zoster (Shingles) Vaccine (1 of 2) 2017 COVID-19 Vaccine (3 - 2023- season) 12/11/202311/2020, 07/26/2020 Influenza Vaccine 11/09/2024 Insurance [facility] Care Teams Patient Care Technician Instructor Relationship Specialty Start Date End Date System, Provider Not In PCP - General 09/27/21
[2024-08-26] MEDS: gadobutroL 10 ML VIAL IVPUSH (17:36)
== END 2024-08-26 16:40 | disposition home or self-care (01) ==
LOC: HO.MRI 16:39
PROVIDERS: PCP Physician Assistant; Visit Provider Physician Assistant Surgical
DX: R29.898 Other symptoms and signs involving the musculoskeletal system (principal); Z98.890 Other specified postprocedural states
CPT/HCPCS: 71552; A9585

== ENCOUNTER 2024-09-21 13:21 | Outpatient (AMB) | payer OTHER, SELFPAY ==
--- NOTE | 2024-09-21 13:26 | MHC.OFFVISWM ---
VS Expanded 09/21/24 13:35 BP 136/102 H Blood Pressure Location Rt brachial Blood Pressure Position Sitting Pulse 78 Pulse Source Pulse Oximeter Temp 98.0 F Temperature Source Temporal Artery Scan Pulse Oximetry 97 Oxygen Delivery Method Room Air Height 5 ft 8 in Weight 182 lb BMI 27.7 Body Fat % 42.1 Body Fat Mass 76.6 Fat Free Mass 105.4 Visceral Fat Rating 9.0 Body Water % 41.1 Body Water Mass 74.8 Muscle Mass/Score 100.0 Basal Metabolic Rate/Score 1,461 Intake Visit Reasons: (OV) s/p Pannic/Brachio 07/12/24 Allergies SODIUM PEN Allergy (Mild, Uncoded 06/25/24 08:19) Nausea Medication List - Last Reconciled 09/21/24 by BERTIN Hay acetaminophen 500 mg PO Q6H PRN biotin 1 mg PO DAILY docusate sodium (Colace) 100 mg PO DAILY hydrochlorothiazide 12.5 mg PO DAILY PRN losartan 25 mg PO DAILY melatonin 10 mg PO DAILY PRN multivitamin 1 tab PO DAILY potassium citrate 99 mg PO DAILY triamcinolone acetonide 0.1% 1 appl topical BID PRN HPI Comments Details: 59-year-old female returns to the office today in follow-up. She is status post panniculectomy and bilateral brachioplasty performed on 07/12/2024. 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 Since surgery, she has been under the care of Neurology and Physical therapy. She has had several MRIs, EMG studies and all imaging confirms no severance of the nerve but rather possible traction injury. She was last seen by Neurology 08/29/2024 with prognosis of recovery over 3-6 months as her nerve remyelinates. She states that over the last couple of weeks her range of motion of the right arm has significantly improved. She is able to extend overhead without assistance. Strength is increasing and she continues to work with physical therapy. She has no complaints except for a slight dog-ear to the right lateral panniculectomy incision [facility] Medical History (Updated 07/22/24 @ 00:02 by Background Daemon) BMI 35.0-35.9,adult Constipation BMI 36.0-36.9,adult BMI 37.0-37.9, adult Obesity Abnormal EKG Dysplastic nevus Hx of transfusion of packed red blood cells Arthritis BMI 34.0-34.9,adult Hx of ectopic PONV (postoperative nausea and vomiting) History of diverticulitis Thyroid nodule Insomnia DJD (degenerative joint disease) Hypertension Morbid obesity Surgical History (Updated 08/02/24 @ 09:16 by Destini Presley CMA) S/P panniculectomy H/O tubal ligation S/P laparoscopic sleeve gastrectomy Hx of cholecystectomy Hx of colonoscopy Hx of hysterectomy, total Family History Mother Hypertension Father Hypertension Sister No problems noted. Sister No problems noted. Sister No problems noted. Sister No problems noted. Sister Hypertension Stroke Brother No problems noted. Social History Household Members: Children Household Members Other:: lives with daughter Housing: House Are you a primary ambulatory care coordinator to a significant other at home: No Do you presently have visiting nurse or other home services: No Alcohol intake: current Alcohol intake frequency: holidays/special occasions only Comment: pt reminded to use call light when need assistance to bathroom Patient Tobacco Use Status: Never used Tobacco Second Hand Smoke Exposure: No service: No Physical Exam Skin Other: Bilateral brachioplasty incisions healed nicely. Panniculectomy incision healed nicely. Slight dog-ear to the right lateral corner of the panniculectomy incision Assessment & Plan Assessment & Plan (1) S/P panniculectomy: Code(s): Z98.890 - Other specified postprocedural states Category: Surgical Plan: Patient's abdomen and arms are healing very nicely. She has returned to work and overall is satisfied with the results. She does note a small dog ear noted to the right lateral panniculectomy incision. She was advised to allow approximately a year of healing prior to any further intervention (2) Excess skin: Code(s): L98.7 - Excessive and redundant skin and subcutaneous tissue Category: Medical Plan: Given patient's 84.4 lb weight loss, she has developed excess skin of the arms, abdomen and thighs. She is now status post brachioplasty and panniculectomy. However she additionally states that the excess skin at the upper medial thighs rub together during any activity including walking and with all exercise, causing discomfort and irritation. When she buys appropriate size clothing, due to the excess skin, it is tight in the thigh but very loose in the waist and this causes significant uncomfortableness to her legs. She also has had chafing of her thighs requiring extra clothing. She needs to wear a lagging type undergarment to prevent her thighs from chafing. She has had rashes to the medial thighs requiring treatment with topical antifungal medications. This is significantly worse in the warmer months. (3) Arm weakness: Code(s): R29.898 - Other symptoms and signs involving the musculoskeletal system Category: Medical Plan: Patient experienced right brachial plexopathy with weakness of the right deltoid muscle secondary to tension injury of the nerve suspected. She has undergone care through neurology as well as physical therapy. Her range of motion has returned almost to normal. Strength and functionality continues to improve. She remains under the care of Neurology and Physical therapy.
[2024-09-21 13:35] VITALS: BP 136/102; PULSE 78; TEMP 36.7; O2SAT 97; BMI 27.7
--- OUTSIDE RECORDS SUMMARY | 2024-09-21 13:40 | XMS_ITS | Clinical Summary ---
Author Organization [facility] Address [address] [place] [address] Care Team Providers Care Laundry Press Operator Name Role Phone System, Provider Not In [...] season) 12/11/202311/2020, 07/26/2020 Influenza Vaccine 11/09/2024 Insurance [facility] Care Teams Laundry Press Operator Relationship Specialty Start Date End Date System, Provider Not In PCP - General 09/27/21
== END 2024-09-21 14:05 | disposition home or self-care (01) ==
LOC: HO.HBS 13:22
PROVIDERS: PCP Physician Assistant; Visit Provider Physician Assistant Surgical
DX: Z98.890 Other specified postprocedural states (principal); L98.7 Excessive and redundant skin and subcutaneous tissue; R29.898 Other symptoms and signs involving the musculoskeletal system
CPT/HCPCS: 99024

== ENCOUNTER → 2024-09-21 13:21 | Outpatient (BNVA) | payer OTHER, SELFPAY | PROVIDERS: PCP Physician Assistant; Visit Provider Physician Assistant Surgical | DX: L98.7 Excessive and redundant skin and subcutaneous tissue (principal); Z98.890 Other specified postprocedural states; Z98.84 Bariatric surgery status; R29.898 Other symptoms and signs involving the musculoskeletal system; R53.1 Weakness | CPT/HCPCS: 99212 ==

== ENCOUNTER 2024-09-27 14:06 | Outpatient (AMB) | payer OTHER, SELFPAY ==
--- NOTE | 2024-09-27 14:17 | MHC.PC.OV ---
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 Required: No Allergies SODIUM PEN Allergy (Mild, Uncoded 09/27/24 14:24) Nausea Medication List - Last Reconciled 09/27/24 by Melisa Robb PA-C acetaminophen 500 mg PO Q6H PRN biotin 1 mg PO DAILY docusate sodium (Colace) 100 mg PO DAILY losartan 25 mg PO DAILY melatonin 10 mg PO DAILY PRN multivitamin 1 tab PO DAILY potassium citrate 99 mg PO DAILY triamcinolone acetonide 0.1% 1 appl topical BID PRN Tobacco use date assessed: 09/27/24 Dental Screening Did you have a dental visit in the last 12 months?: Yes Did you have a dental problem in the last 6 months where you did not have access to dental care?: No Was dental information given to patient?: Patient has dentist 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 she states normally her blood pressures are a bit higher than this. She has been keeping track of them and it seems like the systolic is from 120-140 in the diastolic is from 60-90. She is on hctz 12.5 mg and losartan 25 mg daily. She is on potassium, states needs water pill . General: follows with bariatric surgery. she is s/p sleeve 2022. Takes supplements GI: hx of gerd and states feels great now since her bariatric surgery when she reports that the hiatal hernia was fixed. Endo: followed with [facility] last year had FNA, unsure but believes that the thyroid needed to be monitored again in 1 year. She says that she does not want to drive out to [place]. Records requested. colonoscopy:overdue by 1 year Mammo: appointment booked Tuesday at [place] gynaecological oncologist: s/o total hysterectomy [facility] Medical History (Updated 09/27/24 @ 14:50 by Melisa Robb PA-C) BMI 35.0-35.9,adult Constipation BMI 36.0-36.9,adult BMI 37.0-37.9, adult Obesity Abnormal EKG Dysplastic nevus Hx of transfusion of packed red blood cells Arthritis BMI 34.0-34.9,adult Hx of ectopic PONV (postoperative nausea and vomiting) History of diverticulitis Thyroid nodule Insomnia DJD (degenerative joint disease) Hypertension Morbid obesity Surgical History (Updated 08/02/24 @ 09:16 by Destini Presley CMA) S/P panniculectomy H/O tubal ligation S/P laparoscopic sleeve gastrectomy Hx of cholecystectomy Hx of colonoscopy Hx of hysterectomy, total Family History Mother Hypertension Father Hypertension Sister No problems noted. Sister No problems noted. Sister No problems noted. Sister No problems noted. Sister Hypertension Stroke Brother No problems noted. 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 1. Little interest or pleasure in doing things: not at all 2. Feeling down, depressed, or hopeless: not at all 3. Trouble falling or staying asleep, or sleeping too much: not at all 4. Feeling tired or having little energy: not at all 5. Poor appetite or overeating: not at all 6. Feeling bad about yourself - or that you are a failure or have let yourself or your family down: not at all 7. Trouble concentrating on things, such as reading the newspaper or watching television: not at all 8. Moving or speaking so slowly that other people could have noticed. Or the opposite - being so fidgety or restless that you have been moving around a lot more than usual: not at all 9. Thoughts that you would be better off or of hurting yourself in some way: not at all Total score: 0 Depression Screening Interpretation: Negative Depression Screening Done: Yes 23395 - PHQ-9 Billing: Yes Source: Developed by Drs. Leobardo Rainey, Neelam Cosme, David Louise and colleagues, with an educational phylicia from [employer]. Thrive Questionnaire Date Thrive assessed: 09/20/24 I am a: Patient What is your living situation today?: I have a steady place to live Within the past 12 months, did the food you bought not last and you didn't have the money to get more?: Never true Within the past 12 months, did you worry whether your food would run out before you got money to buy more?: Never true Do you have trouble paying for medicines?: No Do you have trouble getting transportation to medical appointments?: No Do you have trouble paying your heating and electricity bill?: No Do you have trouble taking care of your child, family member or friend?: No Do you have trouble with day-to-day activities such as bathing, preparing meals, shopping, managing finances, etc.?: No Are you currently unemployed and looking for a job?: No Are you interested in more education?: No Please select the resources that you would like help with: None Currently or been in a relationship where the following occur: No concerns reported THRIVE Score: 0 AUDIT C Alcohol Use Questionnaire (AUDIT-C) 1. How often do you have a drink containing alcohol?: Monthly or less 2. How many drinks containing alcohol do you have on a typical day when you are drinking?: 1 or 2 3. How often do you have six or more drinks on one occasion?: Never Total Score: 1 ANNETTE-7 AMB Questionnaire ANNETTE-7 Date ANNETTE - 7 assessed: 09/27/24 Feeling nervous, anxious, or on edge: 0 = Not at all Not being able to stop or control worryin = Not at all Worrying too much about different things: 0 = Not at all Trouble relaxin = Not at all Being so restless that it is hard to sit still: 0 = Not at all Becoming easily annoyed or irritable: 0 = Not at all Feeling afraid as if something awful might happen: 0 = Not at all Total ANNETTE-7 score (0-4 normal; 5-9 mild; 10-14 moderate; 15-21 severe): 0 Source: Developed by Drs. Leobardo Rainey, Neelam Cosme, David Louise and colleagues, with an educational phylicia from [employer]inode. ANNETTE-7 Assessment Billing ANNETTE-7 Assessment Tool: ANNETTE-7 Assessment 69680 Physical exam (Primary Care) Vital Signs: Last Vital Signs Temp 98.2 F 09/27/24 14:30 Pulse 73 09/27/24 14:30 Resp 12 09/27/24 14:30 BP 124/64 09/27/24 14:30 Pulse Ox 98 09/27/24 14:30 Oxygen Delivery Method Room Air 09/27/24 14:30 BMI result Body Mass Index 28.8 Tobacco/Smoking Status: Tobacco use Status Tobacco use date assessed 09/27/24 09/27/24 14:35 Patient Tobacco Use Status Never used Tobacco 09/27/24 14:17 e-Cigarette/Vaping Use Never Used 09/27/24 14:35 PHQ-9: PHQ-9 Score PHQ-9: Total score 0 09/27/24 14:35 Depression Screening Interpretation: Negative Thrive Assessment: Date of Thrive Assessment Date Thrive assessed 09/20/24 09/27/24 14:17 Currently or been in a relationship where the following occur: No concerns reported Const Orientation/consciousness: patient oriented x3 HENMT Ears: hearing grossly normal bilaterally Neck Thyroid: diffusely enlarged Lymphatic: no lymphadenopathy noted Resp Auscultation: clear to auscultation bilaterally Cardio Rate: regular rate Rhythm: regular rhythm Heart sounds: S1 normal heart sound present and S2 normal heart sound present GI Inspection: Yes normal to inspection Palpation (GI): Soft to palpation and Other GI palpation findings present (nontender, no cva tenderness) Auscultation: normoactive bowel sounds Rectal Exam - Female: deferred Skin General skin exam: no rashes or lesions noted Neuro General: patient oriented x3, gait normal and no focal motor deficits Results Reviewed Results Reviewed: Conclusions: - The left ventricular systolic function is normal. The calculated ejection fraction is 65% by biplane method. - No obvious valvular pathology seen on this study. Laboratory Tests 02/07/25 04/04/25 06:50 05:34 WBC 7.0 RBC 3.75 L Hgb 11.6 L Hct 34.5 L Plt Count 245 Sodium 141 Potassium 3.2 L Chloride 105 Carbon Dioxide 29 Estim Creat Clear Calc 111.3 Estimated GFR > 60 Random Glucose 104 Calcium 8.6 D Triglycerides 73 Cholesterol 248 H LDL Cholesterol, Calc 144 H HDL Cholesterol 90 Coding Level of Care Code New Pt Level 4 (37290) Complex EM visit Add On G2211 Diagnoses Hypertension I10 S/P laparoscopic sleeve gastrectomy Z98.84 Hypokalemia E87.6 Colon polyp K63.5 Thyroid nodule E04.1 Additional Codes ANNETTE-7 Assessment Billing - ANNETTE-7 Assessment Tool: ANNETTE-7 Assessment 19905 ([id number]) PHQ-9 - 80590 - PHQ-9 Billing: Yes ([id number]) Assessment & Plan Assessment & Plan (1) Hypertension: Code(s): I10 - Essential (primary) hypertension Category: Medical Plan: Increase hydrochlorothiazide to 25 mg. Continue the losartan 25 mg. Recheck BNP in a couple of weeks after being on this medication. She is currently on a potassium supplement. We will review pending labs. (2) S/P laparoscopic sleeve gastrectomy: Comment: 09/2022 Code(s): Z98.84 - Bariatric surgery status Category: Surgical Plan: Doing well. States that she has lost over 100 lb (3) Hypokalemia: Code(s): E87.6 - Hypokalemia Category: Medical Plan: we will monitor (4) Colon polyp: Code(s): K63.5 - Polyp of colon Category: Medical Plan: she was due this past year for a colonoscopy. 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 (5) Thyroid nodule: Code(s): E04.1 - Nontoxic single thyroid nodule Category: Medical Plan: Labs ordered. Ultrasound ordered referral to endocrinology notes requested from previous senior mobile web developer Orders: Orders Complete Blood Count Auto Diff 09/27/24 E87.6 - Hypokalemia, I10 - Essential (primary) hypertension, Z98.84 - Bariatric surgery status Comprehensive [place]. Panel Fast 09/27/24 E87.6 - Hypokalemia, I10 - Essential (primary) hypertension, Z98.84 - Bariatric surgery status Lipid Panel 09/27/24 E87.6 - Hypokalemia, I10 - Essential (primary) hypertension, Z98.84 - Bariatric surgery status IRON PROFILE 09/27/24 E87.6 - Hypokalemia, I10 - Essential (primary) hypertension, Z98.84 - Bariatric surgery status TSH reflex Free T4 09/27/24 E87.6 - Hypokalemia, I10 - Essential (primary) hypertension, Z98.84 - Bariatric surgery status Vitamin B12 and Folate 09/27/24 E87.6 - Hypokalemia, I10 - Essential (primary) hypertension, Z98.84 - Bariatric surgery status US soft tiss head and/or neck 09/27/24 E04.1 - Nontoxic single thyroid nodule Referrals Gastroenterology Referral K63.5 - Polyp of colon, Z12.11 - Encounter for screening for malignant neoplasm of colon Endocrinology Referral E04.1 - Nontoxic single thyroid nodule Medications: New hydrochlorothiazide 25 mg PO QAM 90 tabs 2RF
[2024-09-27 14:30] VITALS: BP 124/64; PULSE 73; RESP 12; TEMP 36.8; O2SAT 98; BMI 28.8
--- OUTSIDE RECORDS SUMMARY | 2024-09-27 15:24 | XMS_ITS | Clinical Summary ---
Author Organization [facility] Address [address] [place] [address] Care Team Providers Care Lumber Racker Name Role Phone System, Provider Not In [...] 104 09/27/2021 9:10 PM EDT Temperature 36.4 C (97.6 F) 09/27/2021 9:10 PM EDT Respiratory Rate 18 09/27/2021 9:10 PM EDT [...] of 2) 2017 COVID-19 Vaccine (3 - season) 12/11/202311/2020, 07/26/2020 Influenza Vaccine 11/09/2024 Insurance [facility] Care Teams Lumber Racker Relationship Specialty Start Date End Date System, Provider Not In PCP - General 09/27/21
== END 2024-09-27 14:58 | disposition home or self-care (01) ==
LOC: HO.HMCFM 14:07
PROVIDERS: PCP Physician Assistant; Visit Provider Physician Assistant
DX: I10 Essential (primary) hypertension (principal); Z98.84 Bariatric surgery status; E87.6 Hypokalemia; K63.5 Polyp of colon; E04.1 Nontoxic single thyroid nodule

== ENCOUNTER → 2024-09-27 14:06 | Outpatient (BNVA) | payer OTHER, SELFPAY | PROVIDERS: PCP Physician Assistant; Visit Provider Physician Assistant | DX: I10 Essential (primary) hypertension (principal); E87.6 Hypokalemia; K63.5 Polyp of colon; E04.1 Nontoxic single thyroid nodule; Z79.899 Other long term (current) drug therapy; Z98.84 Bariatric surgery status; Z13.31 Encounter for screening for depression; Z13.30 Encounter for screening examination for mental health and behavioral disorders, unspecified | CPT/HCPCS: 96127; 99202 ==

== ENCOUNTER 2024-10-26 08:42 | Outpatient (AMB) | payer OTHER, SELFPAY ==
--- OUTSIDE RECORDS SUMMARY | 2024-10-26 08:46 | XMS_ITS | Clinical Summary ---
Author Organization [facility] Address [address] [place] [address] Care Team Providers Care Computer Operations Manager Name Role Phone System, Provider Not In [...] season) 12/11/202311/2020, 07/26/2020 Influenza Vaccine 11/09/2024 Insurance [facility] Care Teams Computer Operations Manager Relationship Specialty Start Date End Date System, Provider Not In PCP - General 09/27/21
--- OUTSIDE RECORDS SUMMARY | 2024-10-26 08:46 | XMS_ITS | Clinical Summary ---
Author Organization [facility] Address [address] [place] [address] [place] [phone] Phone Care Team Providers Care Director Of In Service Education Name Role Phone Melisa Robb Primary Care Provider [phone]- [phone] Social History Tobacco Use Types Packs/Day Years Used Date Smoking Tobacco: Never Assessed Education Answer Date Recorded Are you interested in more education? Not on jefferson e 08/06/2022 Are you concerned about learning? Not on file 08/06/2022 No 08/06/2022 No 08/06/2022 Digital Access Answer Date Recorded No 09/06/2022 No 09/06/2022 No 09/06/2022 Reliable internet access at home? Not on file 09/06/2022 Device with a working camera? Not on file Comments Unknown Sex and Gender Information Value Date Recorded Sex Assigned at Female 08/29/2024 3:43 PM EDT Legal Sex Female 11:57 AM EDT Gender Identity Female 08/29/2024 3:43 PM EDT Sexual Orientation Straight 08/29/2024 3: 43 PM EDT Plan of Treatment Upcoming Encounters Date Type Department Care Team (Late st Contact Info) Description 11/09/2024 8:00 AM EDT Office Visit [facility] [address] [place] [address], [address] [place] [address] Janak Painter MD [address] [address] [email or web address] Health Maintenance Due Date Last Done Comments Adult Td,Tdap Booster 1967 LIPID PANEL 1967 DEPRESSION SCREENING 1979 SMOKING Hx and SMOKELESS TOB ACCO SCREENING 01/31/1980 HEPATITIS C SCREENING 1985 HIV ONE-TIME SCREENING (18-6 5 YEARS) 1985 PAP SMEAR 01/31/1988 MAMMOGRAM 2007 COLOGUARD 01/31/2012 COLONOSCOPY 01/31/2012 COLORECTAL CANCER SCREENING 01/31/2012 FIT TEST 01/31/2012 FOBT 01/31/2012 SIGMOIDOSCOPY 01/31/2012 VIRTUAL COLONOSCOPY 01/31/2012 PNEUMOCOCCAL VACCINES (50+ y ears) (1 of 1 - PCV) 2017 ZOSTER VACCINES (1 of 2) 2017 COVID-19 VACCINE (2 - 2023-2 5 season) 2023 07/26/2020 HEPATITIS A VACCINES Aged Out No long er eligible based on patient's age to complete this topic HIB VACCINES Aged Out No longer eligi ble based on patient's age to complete this topic MENINGOCOCCAL VACCINES (ACWY) Aged Out No longer eligible based on patient's age to complete this topic MENINGOCOCCAL VACCINES (B) Aged Out N o longer eligible based on patient's age to complete this topic Medical Devices Not on file Insurance [facility]SP [facility] N[facility]G PCP [employer] [employer] NON NSPG PCP [place] [place] NON NSPG PCP S[place] [employer] [place] NON NSPG PCP S[place] [employer] [place] NON NSPG PCP [place] [facility] Care Teams Director Of In Service Education Relationship Specialty Start Date End Date Melisa Robb PA PCP - General Physician Plumber And Tinner 08/29/24 Additional Source Comments The information contained in this document represents components of the legal health record. It is not the complete legal health record.[facility]
--- OUTSIDE RECORDS SUMMARY | 2024-10-26 08:46 | XMS_ITS ---
Author Name [facility] Organization Unknown Encounters Encounter Type Encounter Reason Primary Diagnosis Location Date Emergency Cannabis use, unspecified, uncomplicated Anza [facility] 09/27/2021 Care Team Organization Name Specialty Phone Email Start Date End Da te [facility],Provider Primary Care 09/28/2021 [facility] PROVIDER SYSTEM Primary Care 09/27/20212021
--- NOTE | 2024-10-26 08:47 | A.OFFVIS_ITS ---
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 Presents for 2 year 1 month post op visit. Weight today is 180 pounds, with a BMI of 27.4. There has been a 86.4 pound weight loss,(initial weight 266.4 pounds) since starting the program on 06/09/22 reflecting a 32.4% total body weight loss and a weight loss of 47.5 pounds since surgery (operative weight 227.5 pounds) reflecting a 20.8% TBWL since surgery. She additionally underwent panniculectomy and bilateral brachioplasty on 07/12/2024. 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 She ultimately underwent physical therapy, followed by Neurology and has significantly improved. As a result of her extensive weight loss, approximately 32.4% total body weight loss or 86.4 lb since initiating the program over 2 years ago and 47.5 lb since surgery, she has developed excess skin of her abdomen, arms, legs. She successfully underwent skin removal surgery of her abdomen and arms. Her legs continue to be problematic. She describes getting intermittent rash to the medial thighs treated with topical antifungal creams that have been effective yet recalcitrant with recurrence. She has had difficulty with clothes fitting properly, her activities of daily living have been adversely affected requiring increased hygiene. She has additionally had to wear additional under garments to help prevent chafing. She describes the rash as painful and itchy and this has been incredibly bothersome and very uncomfortable for her. Meal plan: 2 fit crunch bars celebrate 4 in 1 shake with 2 scoops meal with 6 forks protein and 6 forks veg Drinking 32 oz water, 8 oz tea Exercise: treadmill 300 calories 2 x per day, daily Any post op complications: none JOSE: never DM: never HTN: improved Hyperlipidemia: never GERD:?0-5 scale ??0 = no symptoms ??1 = symptoms noticeable but not bothersome 2 =symptoms bothersome but not daily ? 3 = symptoms bothersome and daily 4 = symptoms affect daily activities 5 = symptoms are incapacitating, unable to do daily activities ? How bad is the heartburn: 0 ? Heartburn while lying down: 0 ? Heartburn when standing up: 0 ? Heartburn after meals: 0 ? Does heartburn change your diet: 0 ? Does heartburn wake you up from sleep: 0 ? Do you have difficulty swallowin ? Do you have pain with swallowin ? If you take medicine for your reflux, does this affect your daily life: 0 Satisfaction with present condition - satisfied or not satisfied: satisfied [facility] Medical History BMI 35.0-35.9,adult Constipation BMI 36.0-36.9,adult BMI 37.0-37.9, adult Obesity Abnormal EKG Dysplastic nevus Hx of transfusion of packed red blood cells Arthritis BMI 34.0-34.9,adult Hx of ectopic PONV (postoperative nausea and vomiting) History of diverticulitis Thyroid nodule Insomnia DJD (degenerative joint disease) Hypertension Morbid obesity Surgical History S/P panniculectomy H/O tubal ligation S/P laparoscopic sleeve gastrectomy Hx of cholecystectomy Hx of colonoscopy Hx of hysterectomy, total Family History Mother Hypertension Father Hypertension Sister No problems noted. Sister No problems noted. Sister No problems noted. Sister No problems noted. Sister Hypertension Stroke Brother No problems noted. 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 Current occupational exposures/hazards: No Cognitive needs: No Hearing needs: No 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.) Physical Exam Const General: cooperative and no acute distress Orientation/consciousness: patient oriented x3 Resp Effort & Inspection: normal respiratory effort Auscultation: clear to auscultation bilaterally Cardio Rate: regular rate Rhythm: regular rhythm GI Inspection: Yes normal to inspection and Yes incision (well healed) Palpation (GI): Soft to palpation and no masses Skin Other: Excess skin of bilateral thighs, especially medially causing contact and irritation Neuro General: patient oriented x3 Assessment & Plan Assessment & Plan (1) S/P laparoscopic sleeve gastrectomy: Comment: 09/2022 Code(s): Z98.84 - Bariatric surgery status Category: Surgical Plan: Patient has returned to exercise as she is now 3 months post panniculectomy and brachioplasty. Her previous right arm weakness has resolved. 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 She continues to do daily stretching and strengthening exercises of her right arm. She will continue her current meal plan. Continue exercise plan. We will check 2 year postop labs. (2) Excess skin: Code(s): L98.7 - Excessive and redundant skin and subcutaneous tissue Category: Medical Plan: As a result of her extensive weight loss, approximately 32.4% total body weight loss or 86.4 lb since initiating the program over 2 years ago and 47.5 lb since surgery, she has developed excess skin of her abdomen, arms, legs. She successfully underwent skin removal surgery of her abdomen and arms. Her legs continue to be problematic. She describes intermittent rash to the medial thighs treated with topical antifungal creams that have been effective yet recalcitrant with recurrence. She reports multiple rashes to her thighs over the last 6 months. She has had difficulty with clothes fitting properly, her activities of daily living have been adversely affected requiring increased hygiene. She has additionally had to wear additional under garments to help prevent chafing. She describes the rash as painful and itchy and this has been incredibly bothersome and very uncomfortable for her. As a result of the excess skin of her thighs, it is medically necessary for skin removal surgery. We will submit to her insurance company for approval. In the meantime, continue with barriers and topical treatment as indicated Orders: Orders Vitamin D 25-OH Total Today E04.1 - Nontoxic single thyroid nodule, E87.6 - H ypokalemia, I10 - Essential (primary) hypertension, Z98.84 - Bariatric surgery status Vitamin A Today E04.1 - Nontoxic single thyroid nodule, E87.6 - Hypokalemia, I10 - Essential (primary) hypertension, Z98.84 - Bariatric surgery status Zinc Today E04.1 - Nontoxic single thyroid nodule, E87.6 - Hypokalemia, I10 - Essential (primary) hypertension, Z98.84 - Bariatric surgery status Ferritin Today E04.1 - Nontoxic single thyroid nodule, E87.6 - Hypokalemia, I10 - Essential (primary) hypertension, Z98.84 - Bariatric surgery status Vitamin B1 Today E04.1 - Nontoxic single thyroid nodule, E87.6 - Hypokalemia, I10 - Essential (primary) hypertension, Z98.84 - Bariatric surgery status Vitamin B12 and Folate Today E04.1 - Nontoxic single thyroid nodule, E87.6 - Hypokalemia, I10 - Essential (primary) hypertension, Z98.84 - Bariatric surgery status
[2024-10-26 08:58] VITALS: BP 122/84; PULSE 85; TEMP 35.4; O2SAT 96; BMI 27.4
== END 2024-10-26 09:22 | disposition home or self-care (01) ==
PROVIDERS: PCP Physician Assistant; Visit Provider Physician Assistant Surgical
DX: L98.7 Excessive and redundant skin and subcutaneous tissue (principal); E66.3 Overweight; Z68.27 Body mass index [BMI] 27.0-27.9, adult; Z98.84 Bariatric surgery status; Z90.3 Acquired absence of stomach [part of]
CPT/HCPCS: 99214; G2211

== ENCOUNTER → 2024-10-26 08:42 | Outpatient (BNVA) | payer OTHER, SELFPAY | PROVIDERS: PCP Physician Assistant; Visit Provider Physician Assistant Surgical | DX: Z98.84 Bariatric surgery status (principal); L98.7 Excessive and redundant skin and subcutaneous tissue | CPT/HCPCS: 99212 ==

== ENCOUNTER 2024-11-28 16:01 | Outpatient (AMB) | payer OTHER, SELFPAY ==
--- NOTE | 2024-11-28 16:11 | MHC.OFFVIS ---
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 She had weight loss surgery followed by brachioplasty of both arms on July 12, [address] Elham Huff.? In the immediate postoperative period she found that she could not move her right shoulder.? She's in no pain in the arm but has some numbness on the outer aspect of the right shoulder.? Distal strength is normal.? There are no problems with the left upper extremity. [facility] Medical History (Updated 11/28/24 @ 16:14 by Claire Nelson MD) Axillary nerve palsy BMI 35.0-35.9,adult Constipation BMI 36.0-36.9,adult BMI 37.0-37.9, adult Obesity Abnormal EKG Dysplastic nevus Hx of transfusion of packed red blood cells Arthritis BMI 34.0-34.9,adult Hx of ectopic PONV (postoperative nausea and vomiting) History of diverticulitis Thyroid nodule Insomnia DJD (degenerative joint disease) Hypertension Morbid obesity Surgical History S/P panniculectomy H/O tubal ligation S/P laparoscopic sleeve gastrectomy Hx of cholecystectomy Hx of colonoscopy Hx of hysterectomy, total Family History Mother Hypertension Father Hypertension Sister No problems noted. Sister No problems noted. Sister No problems noted. Sister No problems noted. Sister Hypertension Stroke Brother No problems noted. 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 Difficulty getting to sleepdenies.? Difficulty maintaining sleepadmits.? Urge to move legsdenies.? Teeth grindingdenies.? Shouting or Kicking during sleepdenies.? Abnormal behavior during sleepdenies.? Excessive sleepdenies.? Snoringdenies.? Daytime sleepinessdenies. ???General/Constitutional:? Change in appetitedenies.? Chillsdenies.? Fatiguedenies.? Feverdenies.? Weight gaindenies.? Weight lossdenies. ???Ophthalmologic:? Blurred visiondenies.? Diminished visual acuitydenies. ???ENT:? Stuffinessdenies.? Decreased hearingdenies.? Dry mouthdenies.? Ear paindenies.? Nosebleeddenies.? Ringing in the earsdenies.? Sinus paindenies.? Sore throatdenies.? Swollen glandsdenies. ???Endocrine:? Cold intolerancedenies.? Excessive thirstdenies.? Frequent urinationdenies.? Heat intolerancedenies. ???Respiratory:? Shortness of breathdenies.? Chest paindenies.? Coughdenies. ???Breast:? Breast lumpdenies.? Nipple dischargedenies. ???Cardiovascular:? Chest pain at restdenies.? Chest pain with exertiondenies.? Claudicationdenies.? Dizzinessdenies.? Fluid accumulation in the legsdenies.? Irregular heartbeatdenies.? Palpitationsdenies. ???Gastrointestinal:? Abdominal paindenies.? Constipationdenies.? Diarrheadenies.? Difficulty swallowingdenies.? Heartburndenies.? Nauseadenies.? Rectal bleedingdenies. ???Hematology:? Easy bruisingdenies.? Prolonged bleedingdenies. ???Genitourinary:? Frequent urinationdenies.? Urgencydenies.? Incontinencedenies.? Erectile Dysfunctiondenies. ???Musculoskeletal:? Neck paindenies.? Back paindenies.? Muscle achesdenies.? Painful jointsdenies.? Sciaticadenies.? WeaknessRight arm and shoulder. ???Podiatric:? Difficulty walkingdenies.? Foot numbnessdenies. ???Neurologic:? Difficulty swallowingdenies.? Balance difficultydenies.? Coordinationnormal.? Difficulty speakingdenies.? Dizzinessdenies.? Faintingdenies.? Gait abnormalitydenies.? Headachedenies.? Loss of strengthdenies.? Loss of use of extremitydenies.? Low back paindenies.? Memory lossdenies.? Seizuresdenies.? Ticsdenies.? Tingling/Numbnessdenies.? Transient loss of visiondenies.? Tremordenies. ???Psychiatric:? Anxietydenies.? Auditory/visual hallucinationsdenies.? Delusionsdenies.? Depressed mooddenies.? Stressorsdenies.? Substance abusedenies.? Suicidal thoughtsdenies. Physical Exam Neuro Other: Neurological: Abnormal neurological findings:??Right deltoid is now 5-/5 and the supra and infraspinatus are also 5-/5 , with preserved biceps, triceps and distal strength is normal. Decreased sensation over distal deltoid insertion on the right.?Mental Status:??alert and oriented X 3,?Normal attention, orientation, memory and affect.?Cranial Nerves:??Pupils are equal, round and reactive to light. Fundoscopy shows normal disc bilaterally. External occular muscles are intact. Visual roca are full, no ptosis. Face is symmetrical, no facial weakness or droop. Facial sensations are normal. Tongue protrudes in midline. Palate elevates symmetrically. Shoulder shrugging is normal..?Motor Examination:??As above, otherwise Normal muscle tone, bulk and strength,?No atrophy or fasciculations,?No drift of the extended upper extremities,?Deep tendon reflexes are 2+?,?Plantars are flexor?.?Straight Leg Raising:??90 degrees.?Sensory Exam:??Normal light touch, temperature, pinprick, vibration and joint-position sensations?,?Rhomberg sign is absent.?Coordination:??no ataxia,?no titubation,?cvisnn-ty-mzea, mnko-bkpn-ocmv test and rapid alternating movements were normal.?Gait Exam:??Within normal limits.?Cerebellar Signs:??Vlsmcz-io-gmet and zgex-yl-chks is normal,?no dysdiadochokinesia?.?Extrapyramidal System:??No tremor, rigidity with normal facial expressions,?No bradykinesia, no bradyphrenia. Normal arm swing and posture. No propulsion or retropulsion.?Speech:??Normal,?no dysphasia or dysarthria..? Mini Mental Status Exam: Level of Consciousness:??Alert.?Orientation:??Knows correct year, month, date, day and season,?Knows correct city, county and state. Knows correct location and floor.?Registration:??Able to register 3 objects.?Attention:??Serial 7's performed accurately.?Recall:??Able to recall 3 out of 3 objects.?Language:??Normal spontaneous speech, fluency, repetition,naming, comprehension, reading and writing.?Total Score:??30/30.? General Examination: GENERAL APPEARANCE:??normal,?in no acute distress.?HEAD:??normocephalic,?atraumatic.?EYES:??sclera non-icteric,?conjunctiva clear.?EARS:??auditory canal clear,?tympanic membrane intact, clear.?NOSE:??no lesions.?ORAL CAVITY:??gums normal,?mucosa moist,?no lesions.?THROAT:??clear.?NECK/THYROID:??no cervical lymphadenopathy,?thyroid normal,?neck supple, full range of motion,?no carotid bruit.?SKIN:??no rashes,?no significant birthmarks.?HEART:??S1, S2 normal,?no murmurs.?LUNGS:??clear anteriorly and posteriorly.?CHEST:??no gross rib deformity,?clear to auscultation.?BACK:??normal exam of spine.?EXTREMITIES:??no edema.?PERIPHERAL PULSES:??normal.?PSYCH:??alert, oriented,?cognitive function intact,?cooperative with exam.? Assessment & Plan Assessment & Plan (1) Axillary nerve palsy: Comment: 08/15/24 NCV/EMG UE Normal motor and sensory nerve conduction velocities in the upper extremities. EMG in the right C5-T1 innervated muscles is consistent with isolated active denervation of the right deltoid, conistent with axillary nerve damage. Code(s): G54.0 - Brachial plexus disorders Category: Medical Plan Continue exercises to strengthen the deltoid. Expect complete recovery over next 2 months. ? Coding Level of Care Code Est Pt Level 4 (71832) Diagnoses Axillary nerve palsy G54.0
--- OUTSIDE RECORDS SUMMARY | 2024-11-28 16:36 | XMS_ITS | Clinical Summary ---
Author Organization [facility] Address [address] [place] [address] Care Team Providers Care Jig Builder Name Role Phone System, Provider Not In [...] season) 12/11/202311/2020, 07/26/2020 Influenza Vaccine 11/09/2024 Insurance [facility] Care Teams Jig Builder Relationship Specialty Start Date End Date System, Provider Not In PCP - General 09/27/21
--- OUTSIDE RECORDS SUMMARY | 2024-11-28 16:36 | XMS_ITS | Clinical Summary ---
Author Organization [facility] Address [address] [place] [address] [place] [id number] Phone Care Team Providers Care Optometry Professor Name Role Phone Melisa Robb Primary Care Provider [phone] Social History Tobacco Use Types Packs/Day Years [...] Care Team (Late st Contact Info) Description 02/15/2025 8:00 AM EST [place] [facility] [place] [address] [facility], [address] [place] [address] Janak Painter MD [address] [id number] [email or web address] Due Date Last Done Comments [...] topic Medical Devices Not on file Insurance [facility] NSP PCP [employer] CONNECTORCARE WELLSENSE NON NSPG PCP SILVER CLARITY CONNECTORCARE WELLSENSE NON NSPG PCP SILVER CLARITY CONNECTORCARE WELLSENSE NON NSPG PCP SILVER CLARITY CONNECTORCARE CASTORENSE NON NSPG PCP SILVER CLARITY CONNECTORCARE CASTORENSE NON NSPG PCP [employer] CLARITY CONNECTORCARE Care Teams Optometry Professor Relationship Specialty Start Date End Date Melisa Robb PA PCP - General Physician Auto Customize Painter 08/29/24 Additional Source Comments The information contained in this document represents components of the legal health record. It is not the complete legal health record.[facility]
== END 2024-11-28 16:22 | disposition home or self-care (01) ==
LOC: HO.HSM 16:01
PROVIDERS: PCP Physician Assistant; Referring Provider Physician Assistant; Visit Provider Psychiatry & Neurology Neurology
DX: G54.0 Brachial plexus disorders (principal)
CPT/HCPCS: 99214

== ENCOUNTER → 2024-11-28 16:01 | Outpatient (BNVA) | payer OTHER, SELFPAY | PROVIDERS: PCP Physician Assistant; Referring Provider Physician Assistant; Visit Provider Psychiatry & Neurology Neurology | DX: G54.0 Brachial plexus disorders (principal) | CPT/HCPCS: 99212 ==

== ENCOUNTER 2024-12-17 08:13 | Outpatient (AMB) | payer OTHER, SELFPAY ==
--- NOTE | 2024-12-17 08:52 | A.OFFVIS_ITS ---
VS Expanded 12/17/24 08:55 Height 5 ft 8 in Weight 179 lb BMI 27.2 Intake Visit Reasons: TV Pre Op Thighplasty 12/25/24 Allergies SODIUM PEN Allergy (Mild, Uncoded 12/17/24 09:05) Nausea Medication List - Last Reconciled 12/17/24 by Dave Huff MD acetaminophen 500 mg PO Q6H PRN biotin 1 mg PO DAILY cephalexin 500 mg PO Q12H docusate sodium (Colace) 100 mg PO DAILY hydrochlorothiazide 25 mg PO QAM losartan 25 mg PO DAILY melatonin 10 mg PO DAILY PRN multivitamin 1 tab PO DAILY ondansetron 4 mg PO Q12H potassium citrate 99 mg PO DAILY triamcinolone acetonide 0.1% 1 appl topical BID PRN HPI HPI TV Pre Op Thighplasty 12/25/24: Details: Start time: 8.40am, End time: 9.10am ?I spent 25 minutes speaking with the patient on the phone plus an additional 5 minutes reviewing and updating records for a total of 30 minutes HPI Comments Details: Overall weight loss: 87.4lbs, or 32.8% TBWL Is doing one Celebrate shake 4:1, 2 Fit Crunch bars and one meal (6 forks each) PFSH Medical History (Updated 11/28/24 @ 16:14 by Claire Nelson MD) Axillary nerve palsy BMI 35.0-35.9,adult Constipation BMI 36.0-36.9,adult BMI 37.0-37.9, adult Obesity Abnormal EKG Dysplastic nevus Hx of transfusion of packed red blood cells Arthritis BMI 34.0-34.9,adult Hx of ectopic PONV (postoperative nausea and vomiting) History of diverticulitis Thyroid nodule Insomnia DJD (degenerative joint disease) Hypertension Morbid obesity Surgical History S/P panniculectomy H/O tubal ligation S/P laparoscopic sleeve gastrectomy Hx of cholecystectomy Hx of colonoscopy Hx of hysterectomy, total Family History Mother Hypertension Father Hypertension Sister No problems noted. Sister No problems noted. Sister No problems noted. Sister No problems noted. Sister Hypertension Stroke Brother No problems noted. 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 Current occupational exposures/hazards: No Cognitive needs: No Hearing needs: No 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 Plan for bilateral thighplasty. Risks of infection, bleeding, asymmetry, wound dehiscence and blood clots were discussed with the patient. 2. You will need to be doing sponge baths the first 1-2 weeks. No showers. You need to have help at home to get you up and limit your activities as much as possible for at least the 4-6 weeks after surgery 3. We will arrange for a visiting nurse to come at home to help you with dressing changes and send me pictures of the procedures. We will send at your home supplies for the dressing changes. 4. Follow this nutritional plan: one Celebrate 4:1 (with TWO scoops in 8oz almond milk), 2 [employer] protein bars and one meal (6-8 forks of tilapia and 6 forks) This will improve weight loss and healing after surgery. 5. Continue all vitamins 6. Stop Hydrochlorothiazide on 12/23/2024 7. Do blood work not fasting any day between Tuesday12/17/24 and Tuesday12/21/24 and cotton picker operator the antibiotic prescription from your pharmacy 8. Risks and complications were discussed the possibility of bleeding that may require transfusion, or skin dehiscence, or dog ears , incision asymmetry between the two legs. We also discussed the importance of strict avoidance of activities. 9. Avoid aspirin, motrin, ibuprofen, Aleve, Advil, Naproxyn. Only Tylenol is OK 10. Check your blood pressure daily in the morning and do not take the Losartan and Hydrochlorothiazide if the blood pressure is below 120/70. 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
[2024-12-17 08:55] VITALS: BMI 27.2
--- OUTSIDE RECORDS SUMMARY | 2024-12-17 09:00 | XMS_ITS | Clinical Summary ---
Author Organization [facility] Address [address] [place] [address] [place] [phone] Phone Care Team Providers Care Booth Operator Name Role Phone Melisa Robb Primary Care Provider +1- [phone] Social History Tobacco Use Types Packs/Day Years [...] Description 02/15/2025 8:00 AM EST Office [place] [facility] [place] [address] [facility], [address] [place] [address] Janak Painter MD [address] [address] [email or web address] Health Maintenance Due Date Last Done Comments [...] (2 - 2023-2 5 season) 2023 07/26/2020 INFLUENZA VACCINE (#1) 2024 HEPATITIS A VACCINES Aged Out No long [...] topic Medical Devices Not on file Insurance [facility] PCP XIOMARA RICE CONNECTORCARE WELLSENSE NON NSPG PCP SILVER CLARITY CONNECTORCARE WELLSENSE NON NSPG PCP S[place] CLARITY CONNECTORCARE WELLSENSE NON NSPG PCP S[place]VER CLARITY CONNECTORCARE WELLSENSE NON NSPG PCP [place] CLARITY CONNECTORCARE WELLSENSE NON NSPG PCP [place] CL[employer] CONNECTORCARE Care Teams Booth Operator Relationship Specialty Start Date End Date Melisa Robb PA PCP - General Physician Coin Counter And Wrapper 08/29/24 Additional Source Comments The information contained in this document represents components of the legal health record. It is not the complete legal health record.[facility]
--- OUTSIDE RECORDS SUMMARY | 2024-12-17 09:00 | XMS_ITS | Clinical Summary ---
Author Organization [facility] Address [address] [place] [address] Care Team Providers Care Sleeve Bottom Feller Name Role Phone System, Provider Not In [...] season) 12/11/202311/2020, 07/26/2020 Influenza Vaccine 11/09/2024 Insurance [facility] Care Teams Sleeve Bottom Feller Relationship Specialty Start Date End Date System, Provider Not In PCP - General 09/27/21
== END 2024-12-17 09:11 | disposition home or self-care (01) ==
LOC: HO.HBS 08:13
PROVIDERS: PCP Physician Assistant; Visit Provider Surgery
DX: L98.7 Excessive and redundant skin and subcutaneous tissue (principal)
CPT/HCPCS: 98014

== ENCOUNTER 2024-12-21 06:36 | Outpatient (REF) | payer OTHER, SELFPAY ==
--- OUTSIDE RECORDS SUMMARY | 2024-12-21 06:39 | XMS_ITS | Clinical Summary ---
Author Organization [facility] Address [address] [place] [address] [place] [phone] Phone Care Team Providers Care Concession Worker Name Role Phone Melisa Robb Primary Care Provider +1- [phone] Social History Tobacco Use Types Packs/Day Years [...] Description 02/15/2025 8:00 AM EST Office Visit [facility] [place] Surgery [address] [facility], [address] [place] [address] Janak Painter MD [address] [address] [email or web address] Health Maintenance Due Date Last [...] topic Medical Devices Not on file Insurance [facility] [place] [address] WELLSENSE NON NSPG PCP [place] CLAR[place] CONNECTORCARE WELLSENSE NON NSPG PCP S[place] CONNECTORCARE WELLSENSE NON NSPG PCP S[place]AR[place] CONNECTORCARE WELLSENSE NON NSPG PCP [place] CLARITY CONNECTORCARE WELLSENSE NON NSPG PCP [place] CLARITY CONNECTORCARE Care Teams Concession Worker Relationship Specialty Start Date End Date Melisa Robb PA [address] [place] [phone] PCP - General Physician Four H Club Agent 08/29/24 Additional Source Comments The information contained in this document represents components of the legal health record. It is not the complete legal health record.[facility]
--- OUTSIDE RECORDS SUMMARY | 2024-12-21 06:39 | XMS_ITS | Clinical Summary ---
Author Organization [facility] Address [address] [place] [address] Care Team Providers Care Charging Plug Placer Name Role Phone System, Provider Not In [...] season) 12/11/202311/2020, 07/26/2020 Influenza Vaccine 11/09/2024 Insurance [facility] Care Teams Charging Plug Placer Relationship Specialty Start Date End Date System, Provider Not In PCP - General 09/27/21
[2024-12-21 07:03] LABS: MANUAL DIFF FLAG NO
[2024-12-21 07:36] LABS: Hematocrit 39.8 % (37.0-47.0); Hemoglobin 13.7 g/dl (12.0-16.0); Imm Gran Abs Auto 0.00 X10*3/uL (0.00-0.03); Imm Gran Pct Auto 0.0 % (0.0-0.4); Lymphocytes Absolute Auto 1.6 X10*3/uL (1.2-4.9); Mean Corpuscular HGB Conc 34.4 g/dl (31.0-35.0); Mean Corpuscular Hemoglobin 30.8 pg (27.0-33.0); Mean Corpuscular Volume 89.4 fL (80.0-98.0); NRBC Abs Auto 0.000 X10*3/uL (0.0-0.012); NRBC Pct Auto 0.0 /100WBC (0.0-0.2); Platelet Count 260 X10*3/uL (160-400); Red Blood Count 4.45 X10*6/uL (4.20-5.50); White Blood Count 3.7 X10*3/uL (4.8-10.8)
[2024-12-21 08:22] LABS: Cholesterol 219 mg/dL (<200); HDL Cholesterol 85 mg/dL (>40); Iron 54 mcg/dL (30-160); Percent Iron Saturation 19 % (15-50); Total Iron Binding Capacity 280 mcg/dL (228-428); Triglycerides 50 mg/dL (<150); Unsaturated Iron Binding 226 ug/dL
[2024-12-21 08:40] LABS: Folate 13.9 ng/mL (> or = 4.0); Vitamin B12 1734 pg/mL (200-900)
== END 2024-12-21 06:37 | disposition home or self-care (01) ==
LOC: HO.LAB 06:36
PROVIDERS: PCP Physician Assistant; Visit Provider Physician Assistant
DX: Z98.84 Bariatric surgery status (principal); I10 Essential (primary) hypertension; E87.6 Hypokalemia
CPT/HCPCS: 36415; 80053; 80061; 82607; 82746; 83540; 84443; 85025

== ENCOUNTER 2024-12-22 05:08 | Emergency (ER) | payer OTHER, SELFPAY ==
[2024-12-22 05:13] VITALS: BP 132/76; PULSE 87; RESP 18; TEMP 36.7; O2SAT 98; BMI 29.4
--- NOTE | 2024-12-22 05:22 | ECG_ITS ---
Test Reason : LOW K+ Blood Pressure : */* mmHG Vent. Rate : 76 BPM Atrial Rate : 76 BPM P-R Int : 148 ms QRS Dur : 100 ms QT Int : 390 ms P-R-T Axes : 37 38 29 degrees QTcB Int : 438 ms Normal sinus rhythm Normal ECG When compared with ECG of 18-Jun-2022 13:49, No significant change was found Referred By: Jett Albarran Electronically Signed By: NAILA FABIAN MD
--- OUTSIDE RECORDS SUMMARY | 2024-12-22 05:31 | XMS_ITS | Clinical Summary ---
Author Organization [facility] Address [address] [place] [address] [place] [phone] Phone Care Team Providers Care Retirement Plan Specialist Name Role Phone Melisa Robb Primary Care Provider +1- [phone] Social History Tobacco Use Types Packs/Day Years [...] Description 02/15/2025 8:00 AM EST Office Visit [facility] [place] and Reconstructive Surgery [address] [facility], [address] [place] [address] Janak Painter MD [address] [address] [email or web address] Health Maintenance Due Date Last Done Comments [...] topic Medical Devices Not on file Insurance [facility] PCP [place] CONNECTORCARE WELLSENSE NON NSPG PCP [place] CONNECTORCARE WELLSENSE NON NSPG PCP S[place] CONNECTORCARE WELLSENSE NON NSPG PCP S[place] CONNECTORCARE WELLSENSE NON NSPG PCP [place] CONNECTORCARE WELLSENSE NON NSPG PCP [place] CONNECTORCARE Care Teams Retirement Plan Specialist Relationship Specialty Start Date End Date Melisa Robb PA [address] [place] [phone] PCP - General Physician Senior Validation Engineer 08/29/24 Additional Source Comments The information contained in this document represents components of the legal health record. It is not the complete legal health record.[facility]
--- OUTSIDE RECORDS SUMMARY | 2024-12-22 05:31 | XMS_ITS | Clinical Summary ---
Author Organization [facility] Address [address] [place] [address] Care Team Providers Care Fire Controlman Name Role Phone System, Provider Not In [...] Vaccine (1 of 2) 2017 Influenza Vaccine 11/09/2024 COVID-19 Vaccine ( - 2024- season) 12/10/202411/2020, 07/26/2020 Insurance [facility] Care Teams Fire Controlman Relationship Specialty Start Date End Date System, Provider Not In PCP - General 09/27/21
[2024-12-22 05:34] LABS: Hematocrit 39.2 % (37.0-47.0); Hemoglobin 13.6 g/dl (12.0-16.0); Imm Gran Abs Auto 0.01 X10*3/uL (0.00-0.03); Imm Gran Pct Auto 0.2 % (0.0-0.4); Lymphocytes Absolute Auto 2.3 X10*3/uL (1.2-4.9); MANUAL DIFF FLAG NO; Mean Corpuscular HGB Conc 34.7 g/dl (31.0-35.0); Mean Corpuscular Hemoglobin 31.0 pg (27.0-33.0); Mean Corpuscular Volume 89.3 fL (80.0-98.0); NRBC Abs Auto 0.000 X10*3/uL (0.0-0.012); NRBC Pct Auto 0.0 /100WBC (0.0-0.2); Platelet Count 249 X10*3/uL (160-400); Red Blood Count 4.39 X10*6/uL (4.20-5.50); White Blood Count 5.8 X10*3/uL (4.8-10.8)
--- NOTE | 2024-12-22 05:50 | ED.GENADULT ---
HPI - General Adult General Chief complaint: Recheck/Abnormal Lab/Rx Stated complaint: Low potassium Time Seen by Provider: 12/22/24 05:50 History of Present Illness ED Provider: Dominic SALMON narrative: The patient is a 59-year-old woman who has a history of hypertension and has been on hydrochlorothiazide. She also has a history of bariatric surgery with significant weight loss. She is scheduled to have surgery in several days for skin revision. She had outpatient labs yesterday that showed a low potassium. Her surgeon was concerned that her potassium was sufficiently though that the surgery might have to be postponed and so he recommended her coming to the emergency room for potassium replacement. The patient has stopped her hydrochlorothiazide because of her hypokalemia. Additionally she has been prescribed oral potassium supplementation. The patient does not feel ill otherwise. She has had no fever, sweats, chills. No weakness or syncope. No chest pain or shortness of breath. Related Data Home Medications ?Medication ?Instructions ?Recorded ?Confirmed potassium citrate 99 mg capsule 99 mg PO DAILY 06/28/24 12/17/24 triamcinolone acetonide 0.1 % 1 appl topical BID PRN Skin 06/28/24 12/17/24 topical cream Irritation acetaminophen 500 mg tablet 500 mg PO DAILY Pain 07/12/24 12/18/24 biotin 1 mg capsule 1 mg PO DAILY 07/12/24 12/17/24 multivitamin 1 tab PO DAILY 07/12/24 12/17/24 Previous Rx's ?Medication ?Instructions ?Recorded docusate sodium 100 mg capsule 100 mg PO DAILY #90 caps 06/25/24 (Colace) melatonin 10 mg tablet 10 mg PO DAILY PRN Sleep #1 tab 07/14/24 hydrochlorothiazide 25 mg tablet 25 mg PO QAM #90 tabs 09/27/24 losartan 25 mg tablet 25 mg PO DAILY #90 tabs 11/26/24 cephalexin 500 mg capsule 500 mg PO Q12H #60 caps 12/17/24 ondansetron 4 mg disintegrating 4 mg PO Q12H nausea and vomiting 12/17/24 tablet #20 tabs potassium chloride 40 mEq/15 mL 40 meq (15 mL) PO BID #750 mL 12/21/24 oral liquid Allergies Allergy/AdvReac Type Severity Reaction Status Date / Time thiopental (From Pentothal) Allergy Mild Nausea Verified 12/22/24 05:18 (from sodium pentothal) Review of Systems Review of Systems: Yes all other systems are reviewed and are negative [facility] Past Medical History Medical History (Updated 12/23/24 @ 00:00 by Caridad Su) Axillary nerve palsy Constipation Dysplastic nevus Hx of transfusion of packed red blood cells Arthritis Hx of ectopic PONV (postoperative nausea and vomiting) History of diverticulitis Thyroid nodule Insomnia DJD (degenerative joint disease) Hypertension Surgical History (Updated 12/17/24 @ 14:39 by Soraya Law RN) History of surgery on arm S/P panniculectomy H/O tubal ligation S/P laparoscopic sleeve gastrectomy Hx of cholecystectomy Hx of colonoscopy Hx of hysterectomy, total Family History Family History Mother Hypertension Father Hypertension Sister No problems noted. Sister No problems noted. Sister No problems noted. Sister No problems noted. Sister Hypertension Stroke Brother No problems noted. Social History Social History Household Members: Children Household Members Other:: daughter Housing: House Are you a primary healthcare applications analyst to a significant other at home: No Do you presently have visiting nurse or other home services: No Alcohol intake: current Alcohol intake frequency: holidays/special occasions only Comment: pt reminded to use call light when need assistance to bathroom Patient Tobacco Use Status: Never used Tobacco Smoked in Last 30 Days: No e-Cigarette/Vaping Use: Never Used Second Hand Smoke Exposure: No Use of substances other than those prescribed or required for medical reasons: No Advance Directives: No Advance Directives Information Provided: No Patient : No service: No 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 She does not appear in acute distress. Orientation/consciousness: patient oriented x3 HENMT Other: The face is symmetrical. ?Mucous membranes moist. Eyes Other: Pupils are round equal, conjunctivae are clear, extraocular movements intact Neck Neck: Yes normal visual inspection, Yes full ROM and Yes no lymphadenopathy Resp Effort & Inspection: normal respiratory effort Auscultation: clear to auscultation bilaterally Cardio Rate: regular rate Rhythm: regular rhythm Heart sounds: S1 normal heart sound present and S2 normal heart sound present GI Other: Abdomen is soft and nontender Skin Other: The skin is dry and unremarkable Neuro General: patient oriented x3, tone normal, moves all extremities, no focal motor deficits and CN's II-XI intact bilaterally Extrem Other: There is no calf swelling or tenderness. No asymmetry. No peripheral edema. Medications Administered Discontinued Medications Generic Name Dose Route Start Last Admin Trade Name Freq PRN Reason Stop Dose Admin Potassium Chloride 10 meq in 100 mls @ 100 mls/hr 12/22/24 05:21 12/22/24 07:20 Potassium Chloride/H20 IV 12/22/24 06:20 Infused ONCE ONE Infusion Potassium Chloride 10 meq in 100 mls @ 100 mls/hr 12/22/24 07:45 12/22/24 10:17 Potassium Chloride/H20 IV 12/22/24 09:44 Infused Q1H POLINA Infusion Potassium Chloride 40 meq 12/22/24 05:21 12/22/24 05:54 Potassium Chloride Packet 20 Meq Packet PO 12/22/24 05:22 40 meq ONCE ONE Administration Potassium Chloride 40 meq 12/22/24 07:14 12/22/24 07:21 Potassium Chloride Packet 20 Meq Packet PO 12/22/24 07:15 40 meq ONCE ONE Administration Medical Decision Making Medical Decision Making [facility] Narrative: The patient is a 59-year-old female scheduled to have surgery with the bariatric clinic in 3 days. She has been found on outpatient labs to have hypokalemia. Her surgeon was concerned that this might for say a cancellation of her surgery and so she was advised to come to the emergency room for potassium repletion. Today her initial potassium was 2.9. She was given oral and IV potassium. A repeat potassium was 4.1. She was discharged. She will continue to hold her hydrochlorothiazide. She will take the prescribed supplemental oral potassium. Lab Data 12/22/24 05:29 12/22/24 10:28 Labs: Lab Results 12/22/24 12/22/24 Range/Units 05:29 10:28 WBC 5.8 (4.8-10.8) X10*3/uL RBC 4.39 (4.20-5.50) X10*6/uL Hgb 13.6 (12.0-16.0) g/dl Hct 39.2 (37.0-47.0) % MCV 89.3 (80.0-98.0) fL MCH 31.0 (27.0-33.0) pg MCHC 34.7 (31.0-35.0) g/dl RDW 13.5 (11.0-16.0) % Plt Count 249 (160-400) X10*3/uL MPV 10.4 (9.4-12.3) fL Immature Gran % (Auto) 0.2 (0.0-0.4) % Neut % (Auto) 47.8 (45-73) % Lymph % (Auto) 39.3 (20-40) % Henry % (Auto) 10.6 (2-11) % Eos % (Auto) 1.6 (0-4) % Baso % (Auto) 0.5 (0-2) % Lymph # (Auto) 2.3 (1.2-4.9) X10*3/uL Henry # (Auto) 0.6 (0.1-1.2) X10*3/uL Eos # (Auto) 0.1 (0.0-0.4) X10*3/uL Baso # (Auto) 0.0 (0.0-0.2) X10*3/uL Abs Immat Gran (auto) 0.01 (0.00-0.03) X10*3/uL Absolute Neuts (auto) 2.8 (2.0-8.3) x10*3/uL Absolute Nucleated RBC 0.000 (0.0-0.012) X10*3/uL Nucleated RBC % (auto) 0.0 (0.0-0.2) /100WBC Sodium 141 139 (135-145) mmol/L Potassium 2.9 L* 4.1 D (3.3-5.1) mmol/L Chloride 101 103 (96-108) mmol/L Carbon Dioxide 29 27 (22-29) mmol/L Anion Gap 14 13 (12-20) BUN 16 17 H (9-16) mg/dL Creatinine 0.71 0.60 (0.5-1.4) mg/dL Estim Creat Clear Calc 101.3 119.9 Estimated GFR > 60 > 60 Random Glucose 82 126 H (60-115) mg/dL Calcium 9.6 9.0 D (8.4-10.2) mg/dL Magnesium 1.9 (1.6-2.6) mg/dL Total Bilirubin 0.5 (0.0-1.0) mg/dL AST 30 (5-31) U/L ALT 20 (0-31) U/L Alkaline Phosphatase 52 (39-117) U/L Total Protein 7.2 (6.5-8.0) g/dL Albumin 4.4 (3.5-5.0) g/dL Discharge Plan Discharge Clinical Impression: Hypokalemia Patient Disposition: Home, Self-Care Additional Instructions: Your potassium increased from 2.9-4.1. Please continue to hold your hydrochlorothiazide. Please continue to take your supplemental oral potassium that was prescribed for you. Stay in touch with your surgeon for additional advice or instructions as needed. Return to the emergency room if significantly worse. Prescriptions: No Action losartan 25 mg tablet 25 mg PO DAILY Qty: 90 0RF potassium chloride 40 mEq/15 mL liquid 40 meq PO BID Qty: 750 0RF triamcinolone acetonide 0.1 % cream 1 appl topical BID PRN (Reason: Skin Irritation) Rx Instructions: to be applied in conjunction with the clotrimazole potassium citrate 99 mg Capsule 99 mg PO DAILY multivitamin Tablet 1 tab PO DAILY biotin 1 mg Capsule 1 mg PO DAILY acetaminophen 500 mg Tablet 500 mg PO DAILY melatonin 10 mg Tablet 10 mg PO DAILY PRN (Reason: Sleep) Qty: 1 0RF docusate sodium [Colace] 100 mg capsule 100 mg PO DAILY Qty: 90 0RF hydrochlorothiazide 25 mg tablet 25 mg PO QAM Qty: 90 2RF cephalexin 500 mg capsule 500 mg PO Q12H Qty: 60 2RF ondansetron 4 mg tablet,disintegrating 4 mg PO Q12H Qty: 20 0RF Referrals: Melisa Robb PA-C [Primary Care Provider, Endocrinology] Dave Huff MD [Physician, Bariatric Surgery] Interventions: ED Discharge Assessment Last Done: 12/22/24 11:11 Discharge Date/Time: 12/22/24 11:20 Print Language: Danish
[2024-12-22 05:51] LABS: Alanine Aminotransferase 20 U/L (0-31); Albumin Level 4.4 g/dL (3.5-5.0); Alkaline Phosphatase 52 U/L (39-117); Anion Gap 14 (12-20); Aspartate Amino Transferase 30 U/L (5-31); Blood Urea Nitrogen 16 mg/dL (9-16); Calcium 9.6 mg/dL (8.4-10.2); Carbon Dioxide 29 mmol/L (22-29); Chloride 101 mmol/L (96-108); Creatinine Clr Calc Pharmacy 101.3; Estimated Glomerular Filt Rate > 60; Magnesium 1.9 mg/dL (1.6-2.6); Potassium 2.9 mmol/L (3.3-5.1); Sodium 141 mmol/L (135-145); Total Protein 7.2 g/dL (6.5-8.0)
[2024-12-22] MEDS: Potassium Chloride/H20 10 MEQ/100 ML PIGGYBACK 100 MEQ IV ×3 (05:54→09:22)
[2024-12-22] MEDS: Potassium Chloride Packet 20 MEQ PACKET 40 MEQ PO ×2 (05:54→07:21)
[2024-12-22 10:47] LABS: Anion Gap 13 (12-20); Blood Urea Nitrogen 17 mg/dL (9-16); Calcium 9.0 mg/dL (8.4-10.2); Carbon Dioxide 27 mmol/L (22-29); Chloride 103 mmol/L (96-108); Creatinine Clr Calc Pharmacy 119.9; Estimated Glomerular Filt Rate > 60; Potassium 4.1 mmol/L (3.3-5.1); Sodium 139 mmol/L (135-145)
[2024-12-22 11:06] VITALS: BP 120/62; PULSE 81; RESP 17; TEMP 36.7; O2SAT 99
[2024-12-22 11:11] VITALS: BP 120/62; PULSE 81; RESP 17; TEMP 36.7; O2SAT 99
== END 2024-12-22 11:20 | disposition home or self-care (01) ==
PROVIDERS: Emergency Provider Emergency Medicine; PCP Physician Assistant
DX: E87.6 Hypokalemia (principal); I10 Essential (primary) hypertension; Z79.899 Other long term (current) drug therapy
CPT/HCPCS: 36415; 80048; 80053; 83735; 85025; 93005; 96365; 96366; 99284; 99285; J3480

== ENCOUNTER → 2024-12-22 05:22 | Outpatient (BNV) | payer OTHER, SELFPAY | PROVIDERS: Emergency Provider Emergency Medicine; PCP Physician Assistant; Visit Provider Internal Medicine Cardiovascular Disease | DX: E87.6 Hypokalemia (principal) | CPT/HCPCS: 93010 ==

== ENCOUNTER 2024-12-25 07:56 | Day surgery (SDC) | payer OTHER, SELFPAY ==
[2024-12-18 15:13] VITALS: BMI 27.2
--- OUTSIDE RECORDS SUMMARY | 2024-12-19 17:04 | XMS_ITS | Clinical Summary ---
Author Organization [facility] Address [address] [place] [address] Care Team Providers Care Lumber Estimator Name Role Phone System, Provider Not In [...] season) 12/11/202311/2020, 07/26/2020 Influenza Vaccine 11/09/2024 Insurance [facility] Care Teams Lumber Estimator Relationship Specialty Start Date End Date System, Provider Not In PCP - General 09/27/21
--- OUTSIDE RECORDS SUMMARY | 2024-12-19 17:04 | XMS_ITS | Clinical Summary ---
Author Organization [facility] Address [address] [place] [address] [place] [phone] Phone Care Team Providers Care Parole Director Name Role Phone Melisa Robb Primary Care Provider +1- [phone] Social History Tobacco Use Types Packs/Day Years [...] Description 02/15/2025 8:00 AM EST Office [place] [facility] [place] [address] [facility], [address] [place] [address] Janak Painter MD [address] [address] [email or web address] Health Maintenance Due Date Last [...] topic Medical Devices Not on file Insurance [facility] PCP [place] [address] WELLSENSE NON NSPG PCP [place] CONNECTORCARE WELLSENSE NON NSPG PCP S[place] CONNECTORCARE WELLSENSE NON NSPG PCP S[place] CLARITY CONNECTORCARE WELLSENSE NON NSPG PCP [place] CLARITY CONNECTORCARE WELLSENSE NON NSPG PCP [place] CL[employer] CONNECTORCARE Care Teams Parole Director Relationship Specialty Start Date End Date Melisa Robb PA [address] [place] [phone] PCP - General Physician Mathematics Technician 08/29/24 Additional Source Comments The information contained in this document represents components of the legal health record. It is not the complete legal health record.[facility]
[2024-12-21 07:03] LABS: MANUAL DIFF FLAG NO
[2024-12-21 07:38] LABS: Hematocrit 39.9 % (37.0-47.0); Hemoglobin 13.6 g/dl (12.0-16.0); Imm Gran Abs Auto 0.01 X10*3/uL (0.00-0.03); Imm Gran Pct Auto 0.3 % (0.0-0.4); Lymphocytes Absolute Auto 1.6 X10*3/uL (1.2-4.9); Mean Corpuscular HGB Conc 34.1 g/dl (31.0-35.0); Mean Corpuscular Hemoglobin 30.4 pg (27.0-33.0); Mean Corpuscular Volume 89.3 fL (80.0-98.0); NRBC Abs Auto 0.000 X10*3/uL (0.0-0.012); NRBC Pct Auto 0.0 /100WBC (0.0-0.2); Platelet Count 263 X10*3/uL (160-400); Red Blood Count 4.47 X10*6/uL (4.20-5.50); White Blood Count 3.6 X10*3/uL (4.8-10.8)
[2024-12-21 07:42] LABS: INTERNATIONAL NORM RATIO 1.0 (0.9-1.1); Prothrombin Time 11.9 SEC (10.9-12.4)
[2024-12-21 07:45] LABS: Partial Thromboplastin Time 30.7 SEC (26.7-34.1)
[2024-12-21 08:48] LABS: Alanine Aminotransferase 22 U/L (0-31); Albumin Level 4.6 g/dL (3.5-5.0); Alkaline Phosphatase 50 U/L (39-117); Anion Gap 18 (12-20); Aspartate Amino Transferase 34 U/L (5-31); Blood Urea Nitrogen 13 mg/dL (9-16); Calcium 9.8 mg/dL (8.4-10.2); Carbon Dioxide 30 mmol/L (22-29); Chloride 94 mmol/L (96-108); Creatinine Clr Calc Pharmacy 99.1; Estimated Glomerular Filt Rate > 60; Potassium 2.8 mmol/L (3.3-5.1); Sodium 139 mmol/L (135-145); Total Protein 7.4 g/dL (6.5-8.0)
--- NOTE | 2024-12-21 14:10 | HO.ANESPROP2 ---
Documented by User: Faby Santiago NP 12/24/24 08:23 HPI - Anesthesia Eval Consult details Narrative: 59yo F for Bilateral Thighplasty Critically low K with preop labs on 12/21/24 - surgical team rx'd supplementation and advised hold HCTZ - repeat K = 4.1 on 12/22/24 s/p Panniculectomy, Brachioplasty 07/2024 with GA-ETT 7 s/p Gastric Sleeve 2022 with GA-ETT 7 PMFSH Active Problems Active Problems: All Active Problems Colon polyp (Acute) Arm weakness (Acute) S/P brachioplasty (Acute) Hypokalemia (Acute) Excess skin (Acute) Overweight (BMI 25.0-29.9) (Acute) Liver fibrosis (Acute) Steatosis, liver (Acute) Adjustment disorder with anxiety (Acute) Axillary nerve palsy (Acute) S/P panniculectomy (Acute) S/P laparoscopic sleeve gastrectomy (Acute) Thyroid nodule (Acute) Insomnia (Acute) DJD (degenerative joint disease) (Acute) Hypertension (Acute) Past Medical History Medical History Axillary nerve palsy Constipation Dysplastic nevus Hx of transfusion of packed red blood cells Arthritis Hx of ectopic PONV (postoperative nausea and vomiting) History of diverticulitis Thyroid nodule Insomnia DJD (degenerative joint disease) Hypertension Family History Family History Mother Hypertension Father Hypertension Sister No problems noted. Sister No problems noted. Sister No problems noted. Sister No problems noted. Sister Hypertension Stroke Brother No problems noted. Family history of problems with anesthesia: No Surgical History Surgical History History of surgery on arm S/P panniculectomy H/O tubal ligation S/P laparoscopic sleeve gastrectomy Hx of cholecystectomy Hx of colonoscopy Hx of hysterectomy, total History of Problems with Anesthesia: Yes (PONV) Social History Social History Household Members: Children Household Members Other:: daughter Housing: House Are you a primary child care assistant to a significant other at home: No Do you presently have visiting nurse or other home services: No Alcohol intake: current Alcohol intake frequency: holidays/special occasions only Comment: pt reminded to use call light when need assistance to bathroom Patient Tobacco Use Status: Never used Tobacco e-Cigarette/Vaping Use: Never Used Second Hand Smoke Exposure: No Use of substances other than those prescribed or required for medical reasons: No Have you been hit, kicked, punched, or otherwise hurt by someone within the past year? 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.) Meds Allergies Allergy/AdvReac Type Severity Reaction Status Date / Time thiopental (From Pentothal) Allergy Mild Nausea Verified 12/22/24 05:18 (from sodium pentothal) Home Medications ?Medication ?Instructions ?Recorded ?Confirmed ?Last Taken ?Type potassium citrate 99 mg capsule 99 mg PO DAILY 06/28/24 12/25/24 12/24/24 History triamcinolone acetonide 0.1 % 1 appl topical BID PRN Skin 06/28/24 12/25/24 12/24/24 History topical cream Irritation acetaminophen 500 mg tablet 500 mg PO DAILY Pain 07/12/24 12/25/24 12/24/24 History biotin 1 mg capsule 1 mg PO DAILY 07/12/24 12/25/24 12/24/24 History multivitamin 1 tab PO DAILY 07/12/24 12/25/24 12/24/24 History Exam Height,Weight and Vital Signs: Height 5 ft 8 in Weight 81.193 kg Pertinent Lab Results Pertinent Lab Results: Laboratory Tests 12/21/24 12/21/24 06:50 07:01 WBC 3.6 L RBC 4.47 Hgb 13.6 Hct 39.9 MCV 89.3 MCH 30.4 MCHC 34.1 RDW 13.2 Plt Count 263 MPV 11.2 Immature Gran % (Auto) 0.3 Neut % (Auto) 40.1 L Lymph % (Auto) 45.1 H Murray % (Auto) 12.6 H Eos % (Auto) 1.4 Baso % (Auto) 0.5 Lymph # (Auto) 1.6 Murray # (Auto) 0.5 Eos # (Auto) 0.1 Baso # (Auto) 0.0 Abs Immat Gran (auto) 0.01 Absolute Neuts (auto) 1.5 L Absolute Nucleated RBC 0.000 Nucleated RBC % (auto) 0.0 PT 11.9 INR 1.0 APTT 30.7 Sodium 139 Potassium 2.8 L* Chloride 94 L Carbon Dioxide 30 H Anion Gap 18 BUN 13 Creatinine 0.70 Estim Creat Clear Calc 99.1 Estimated GFR > 60 Random Glucose 76 Calcium 9.8 D Total Bilirubin 0.7 AST 34 H ALT 22 Alkaline Phosphatase 50 Total Protein 7.4 Albumin 4.6 Blood Type A Negative Antibody Screen NEGATIVE Laboratory Tests 12/22/24 10:28 Sodium 139 Potassium 4.1 D Chloride 103 Carbon Dioxide 27 BUN 17 H Creatinine 0.60 Narrative Narrative: EKG 06/2022 Vent. Rate : 084 BPM ? ? Atrial Rate : 084 BPM ?? P-R Int : 158 ms? QRS Dur : 108 ms ? ? QT Int : 408 ms ? ? ? P-R-T Axes : 061 052 037 degrees ?? QTc Int : 482 ms ? Normal sinus rhythm Prolonged QT Abnormal ECG No previous ECGs available ECHO 07/2022 Conclusions: - The left ventricular systolic function is normal.? The ? calculated ejection fraction is 65% by biplane method. ? - No obvious valvular pathology seen on this study.? Exercise Stress 07/2022 Protocol: VILLA ? Max HR: 155 BPM? 93% of? Pred: 165 BPM Max BP: 170/088 mmHG Max Work Load: 7.1 METS ? Exercise stress test exercise 6 min 6 sec of Villa protocol achieiving 94% MPHR ?and 7.1 METs, without anginal symtpoms, without arrythmia, with normotensive ?response to exercise, with baseline EKGs showing St/T abnormality in lead 3 and ?aVF which was present throughout test, non-specific, no changes meeting ?critieria for ischemia. Test reviewed with Dr. Dorman. Assessment and Plan Assessment Anesthesia Assessment: Chart Reviewed Final Anesthetic Review Family History of Problems with Anesthesia: No History of Problems with Anesthesia: Yes (PONV) Documented by User: Iza Hansen MD 12/25/24 10:15 PMF Past Medical History Medical History Axillary nerve palsy Constipation Dysplastic nevus Hx of transfusion of packed red blood cells Arthritis Hx of ectopic PONV (postoperative nausea and vomiting) History of diverticulitis Thyroid nodule Insomnia DJD (degenerative joint disease) Hypertension Family History Family History Mother Hypertension Father Hypertension Sister No problems noted. Sister No problems noted. Sister No problems noted. Sister No problems noted. Sister Hypertension Stroke Brother No problems noted. Surgical History Surgical History History of surgery on arm S/P panniculectomy H/O tubal ligation S/P laparoscopic sleeve gastrectomy Hx of cholecystectomy Hx of colonoscopy Hx of hysterectomy, total Social History Social History Household Members: Children Household Members Other:: daughter Housing: House Are you a primary child care assistant to a significant other at home: No Do you presently have visiting nurse or other home services: No Alcohol intake: current Alcohol intake frequency: holidays/special occasions only Comment: pt reminded to use call light when need assistance to bathroom Patient Tobacco Use Status: Never used Tobacco e-Cigarette/Vaping Use: Never Used Second Hand Smoke Exposure: No Use of substances other than those prescribed or required for medical reasons: No Have you been hit, kicked, punched, or otherwise hurt by someone within the past year? 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.) Meds Allergies Allergy/AdvReac Type Severity Reaction Status Date / Time thiopental (From Pentothal) Allergy Mild Nausea Verified 12/22/24 05:18 (from sodium pentothal) Home Medications ?Medication ?Instructions ?Recorded ?Confirmed ?Last Taken ?Type potassium citrate 99 mg capsule 99 mg PO DAILY 06/28/24 12/25/24 12/24/24 History triamcinolone acetonide 0.1 % 1 appl topical BID PRN Skin 06/28/24 12/25/24 12/24/24 History topical cream Irritation acetaminophen 500 mg tablet 500 mg PO DAILY Pain 07/12/24 12/25/24 12/24/24 History biotin 1 mg capsule 1 mg PO DAILY 07/12/24 12/25/24 12/24/24 History multivitamin 1 tab PO DAILY 07/12/24 12/25/24 12/24/24 History Exam Airway Mallampati Class: II TM Dist: >3cm Neck ROM: Full Loose/Missing/Broken Teeth: No Heart: RRR Lungs: CTA Assessment and Plan Assessment Anesthesia Assessment: Anesthesia Plan Discussed Final Anesthetic Review NPO: Yes ASA Class: II Final Preanesthetic Review: Meds/Allgs Chart Reviewed, Consent Obtained/Reviewed and Anes Risks/Benef Reviewed Patient Risk: Low Procedure Risk: Low Anesthetic Plan Anesthetic Plan: GA Disposition: Standard PACU
[2024-12-25] VITALS (10 sets, daily range): BP systolic 129–141; BP diastolic 71–83; PULSE 70–109; RESP 12–19; TEMP 36.4–36.6; O2SAT 97–99; BMI 29.5
[2024-12-25] MEDS: Lactated Ringers 1,000 ML 100 ML IVCONT (08:26)
--- NOTE | 2024-12-25 10:04 | P.F2F_ITS ---
Service Date Service Date: 12/25/24 Encounter Date of encounter: 12/25/24 Reasons for Services Signs and symptoms assessed: s/p thighplasty, requires long-term care 3x weekly for wound assessment and assistance with dressing changes Reason for long-term: wound care Homebound: Leaving the home is medically contraindicated at this time without the asist of a device and/or another person due th the listed conditions above and below. Reason homebound: unable to drive Certification: Based on the above findings, I certify that this patient is confined to the home and needs intermittent long-term care, physical therapy and/or speech therapy, or continues to need occupational therapy. The patient is under my care, and I have initiated the establishment of the plan of care. The patient will be followed by a physician who will periodically review the plan of care. Time Spent With Patient Time: Total time managing care of this patient today __30__ minutes.
--- NOTE | 2024-12-25 10:06 | MHC.SHP ---
Pre-Procedural Eval Section A - 24 Hr Update-Section A only Date of Service: 12/25/24 The patient is an INPATIENT: No The patient has been examined within 24 hours of the surgical procedure. The History & Physical has been completed within 30 days and I have reviewed it.: Yes Section B - Complete if H&P > 30 days Chief Complaint: Excessive and redundant skin and subcut tissue Relevant Family History (Specify if Yes): No Relevant Social History: None Present Medications: None Medical History: No relevant PMH History of Previous Operations: Relevant previous surgery/procedure and date(s) (Laparoscopic sleeve gastrectomy) Allergies: Allergies Allergy/AdvReac Type Severity Reaction Status Date / Time thiopental (From Pentothal) Allergy Mild Nausea Verified 12/22/24 05:18 (from sodium pentothal) Review of Systems Sugical H&P ROS: Negative: Constitution, Cardiovascular, Respiratory, Neurological, Psychiatric, Hem-Onc, Allergic/Immunologic, Gastrointestinal, Genitourinary, Musculoskeletal, Integumentary, Endocrine and Eyes/Ears/Nose/Throat Exam Surgical H&P Exam: Normal: HEENT, Normal: Heart, Normal: Lungs, Normal: Extremities, Normal: Abdomen, Normal: Skin and Normal: Neurological Plan Diagnosis/Plan: Unchanged I have reviewed the history and physical and performed a pertinent physical examination on my patient. No changes have occurred unless specified. Time Spent With Patient Time: Total time managing care of this patient today ____ minutes.
--- NOTE | 2024-12-25 10:07 | P.BOP_ITS ---
Brief Operative Note Date of Service: 12/25/24 Pre-op diagnosis: Excess skin bilateral thighs Post-op diagnosis: same Procedure: PROCEDURE: Bilateral thighplasty INDICATION: This a 59 year old female who underwent laparoscopic sleeve gastrect mayito on 09/29/2022. She had an excellent result achieving a BMI of 27.2 kg/m2 with a total weight loss of 87.4lbs, or 32.8% of her TBWL. As a result of the massive weight loss, she has developed skin rashes and chafing in medial thighs. On exam she has extreme skin laxity due to massive weight loss and age and friction between the?inner thighs. Bilateral thighplasty was recommended. PROCEDURE: The incisions were appropriately marked at the preop area with the patient standing and laying down. After induction of general anesthesia a Kong catheter and pneumatic compression devices were placed. The patient was prepped and draped in the usual sterile manner and the incisions were marked again and confirmed. The legs were flexed at the knees and abducted at the hip level.?The anterior incision was made first. I did not commit to the posterior incision until dissection was completed and I could assess the appropriate location for the posterior incision to prevent excessive tension. Cautery was used to separate the skin from subcutaneous tissues. Careful attention was paid to make sure that the plain of excision was superficial as close to the skin as possible and superior to the fascia but without causing skin ischemia. The right thigh skin was 41 cm x 6.5 cm and the left 37 cm x 6 cm. Skin was closed in two layers using interrupted 3.0 Monocryl sutures for the dermis and 4.0 subcuticular Monocryl suture for the skin. The was awaken and was transferred to the recover room in a stable condition. I was present and performed the entire procedure. Ms Larios was the waiter/waitress first class.. Slade Huff MD, PhD, FACS Surgeon: Dave Huff MD Surgeon: Dave Huff MD Anesthesia: local Was an Software Implementation Specialist used for this Procedure?: No Software Implementation Specialist: Anahi Foote Estimated blood loss (mL): 10 IV fluids (mL): 1,300 Urine output (mL): 0 (No Kong to record output) Pathology: other (1) right thigh skin, 2) left thigh skin) Condition: stable Disposition: PACU
[2024-12-25] MEDS: oxyCODONE HCl Immed Release 5 MG TABLET PO (14:56)
== END 2024-12-25 15:59 | disposition home or self-care (01) ==
PROVIDERS: PCP Physician Assistant; Visit Provider Surgery
PROC: (CPT 15832; principal; 2024-12-25 10:20)
DX: L98.7 Excessive and redundant skin and subcutaneous tissue (principal); Z68.27 Body mass index [BMI] 27.0-27.9, adult; K91.2 Postsurgical malabsorption, not elsewhere classified; Z90.3 Acquired absence of stomach [part of]; L03.90 Cellulitis, unspecified; L30.4 Erythema intertrigo; R21 Rash and other nonspecific skin eruption; R11.0 Nausea; I10 Essential (primary) hypertension; E04.1 Nontoxic single thyroid nodule; M19.90 Unspecified osteoarthritis, unspecified site; Z79.899 Other long term (current) drug therapy; Z88.4 Allergy status to anesthetic agent; Z98.890 Other specified postprocedural states
CPT/HCPCS: 15832; 36415; 80053; 85025; 85610; 85730; 86850; 86900; 86901; 88304; C1889; J0131; J0690; J1100; J1171; J2003; J2004; J2371; J2405; J2704; J3010; J3374

== ENCOUNTER → 2024-12-25 07:56 | Outpatient (BNV) | payer OTHER, SELFPAY | PROVIDERS: PCP Physician Assistant; Visit Provider Physician Assistant Surgical | DX: L98.7 Excessive and redundant skin and subcutaneous tissue (principal) | CPT/HCPCS: 15832; G0180 ==

== ENCOUNTER 2025-01-02 10:29 | Outpatient (AMB) | payer OTHER, SELFPAY ==
[2025-01-02 10:56] VITALS: BP 139/80; PULSE 82; TEMP 36.1; O2SAT 98
--- NOTE | 2025-01-02 10:56 | MHC.OFFVISWM ---
VS Expanded 01/02/25 10:56 BP 139/80 Blood Pressure Location Rt brachial Blood Pressure Position Sitting Pulse 82 Pulse Source Pulse Oximeter Temp 97.0 F Temperature Source Temporal Artery Scan Pulse Oximetry 98 Oxygen Delivery Method Room Air Intake Visit Reasons: OV PO Thighplasty 12/25/24 Allergies thiopental (From Pentothal) Allergy (Mild, Verified 01/02/25 10:57) Nausea (from sodium pentothal) HPI Comments Details: Pt is 8 days s/p thighplasty 12/25/2024. Pain controlled. No fevers at home. Taking abx and following meal plan as per Dr. Julia AKBAR Medical History Axillary nerve palsy Constipation Dysplastic nevus Hx of transfusion of packed red blood cells Arthritis Hx of ectopic PONV (postoperative nausea and vomiting) History of diverticulitis Thyroid nodule Insomnia DJD (degenerative joint disease) Hypertension Surgical History History of surgery on arm S/P panniculectomy H/O tubal ligation S/P laparoscopic sleeve gastrectomy Hx of cholecystectomy Hx of colonoscopy Hx of hysterectomy, total Family History Mother Hypertension Father Hypertension Sister No problems noted. Sister No problems noted. Sister No problems noted. Sister No problems noted. Sister Hypertension Stroke Brother No problems noted. 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 Current occupational exposures/hazards: No Cognitive needs: No Hearing needs: No 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.) Physical Exam Vital Signs: Last Vital Signs Temp 97.0 F 01/02/25 10:56 Pulse 82 01/02/25 10:56 BP 139/80 01/02/25 10:56 Pulse Ox 98 01/02/25 10:56 Oxygen Delivery Method Room Air 01/02/25 10:56 Const General: cooperative, comfortable and no acute distress Orientation/consciousness: patient oriented x3 Skin Other: thigh incisions c/d/i, no surrounding erythema or drainage, some mild bruising which is expected Neuro General: patient oriented x3 Assessment & Plan Assessment & Plan (1) S/P thighplasty: Code(s): Z98.890 - Other specified postprocedural states Category: Surgical Plan Continue steri-strips, Xeroform, DSD changed daily. Pt declined further VNA visits. Continue abx and meal plan. Avoid exercise and heavy lifting. 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 RTC 1w.
--- OUTSIDE RECORDS SUMMARY | 2025-01-02 13:07 | XMS_ITS | Clinical Summary ---
Author Organization [facility] Address [address] [place] [address] Care Team Providers Care Deoiling Machine Operator Name Role Phone System, Provider Not [...] ( - 2024- season) 12/10/202411/2020, 07/26/2020 Insurance [facility] Care Teams Deoiling Machine Operator Relationship Specialty Start Date End Date System, Provider Not In PCP - General 09/27/21
--- OUTSIDE RECORDS SUMMARY | 2025-01-02 13:07 | XMS_ITS | Clinical Summary ---
Author Organization [facility] Address [address] [place] [address] [place] [phone] Phone Care Team Providers Care Iron Installer Name Role Phone Melisa Robb Primary Care Provider [phone]- [phone] Social History Tobacco Use Types Packs/Day Years [...] Description 02/15/2025 8:00 AM EST Office Visit [facility] Plastic and Reconstructive Surgery [address] [place] [address] Janak Painter MD [address] [address] [email or web address] Due Date Last Done Comments [...] topic Medical Devices Not on file Insurance [facility] PCP [place] [employer] NON NSPG PCP [place] [employer] [employer] NON NSPG PCP [place] [employer] NON NSPG PCP S[place] [employer] NON NSPG PCP [place] [employer] NON NSPG PCP [place] [employer] Care Teams Iron Installer Relationship Specialty Start Date End Date Melisa Robb PA [address] [place] [id number] PCP - General Physician Mobile Lounge Driver Or Operator 08/29/24 Additional Source Comments The information contained in this document represents components of the legal health record. It is not the complete legal health record.[facility]
== END 2025-01-02 11:19 | disposition home or self-care (01) ==
LOC: HO.HBS 10:29
PROVIDERS: PCP Physician Assistant; Visit Provider Physician Assistant Surgical
DX: L98.7 Excessive and redundant skin and subcutaneous tissue (principal); Z98.890 Other specified postprocedural states
CPT/HCPCS: 99024

== ENCOUNTER → 2025-01-02 10:29 | Outpatient (BNVA) | payer OTHER, SELFPAY | PROVIDERS: PCP Physician Assistant; Visit Provider Physician Assistant Surgical | DX: L98.7 Excessive and redundant skin and subcutaneous tissue (principal); Z90.3 Acquired absence of stomach [part of]; Z98.890 Other specified postprocedural states | CPT/HCPCS: 99212 ==

== ENCOUNTER 2025-01-03 08:41 | Outpatient (AMB) | payer OTHER, SELFPAY ==
[2025-01-03 08:43] VITALS: BP 104/74; PULSE 81; RESP 14; TEMP 36.8; O2SAT 98; BMI 28.5
--- NOTE | 2025-01-03 08:43 | A.OFFPC_ITS ---
Vital Signs 01/03/25 08:43 Height 5 ft 8 in Weight 187 lb 8 oz BMI 28.5 BP 104/74 Blood Pressure Location Lt brachial Position Sitting Respiration 14 Pulse 81 Pulse Source Pulse Oximeter Temp 98.3 F Temp Source Oral Pulse Oximetry (%) 98 Oxygen Delivery Method Room Air Intake Visit Reasons: bps and labs Intake Note: Follow up. Had thighplasty 9 days ago. Went to [place] [facility] with low potassium they stopped HCTZ Evaluation Engineer Required: No Allergies thiopental (From Pentothal) Allergy (Mild, Verified 01/03/25 08:47) Nausea (from sodium pentothal) Medication List - Last Reconciled 01/03/25 by Melisa Robb PA-C acetaminophen 500 mg PO DAILY biotin 1 mg PO DAILY docusate sodium (Colace) 100 mg PO DAILY losartan 25 mg PO DAILY melatonin 10 mg PO DAILY PRN multivitamin 1 tab PO DAILY ondansetron 4 mg PO Q12H potassium chloride 40 mEq (15 mL) PO BID potassium citrate 99 mg PO DAILY triamcinolone acetonide 0.1% 1 appl topical BID PRN Tobacco use date assessed: 09/27/24 HPI bps and labs HPI Details Pt is a 59 y/o female who presents today for a follow up CV: bp today is 104/74. She says that she is not currently on any medication but states that she goes back to work at the end of the week and is worried that this will elevate her blood pressure. She states that whenever she thinks about work or goes to work her blood pressure is elevated. She also does not like not being able to be on a diuretic. She was recently discontinued hydrochlorothiazide due to hypokalemia despite taking potassium. She was also discontinued on the losartan because her blood pressure was okay. General: follows with bariatric surgery. she is s/p sleeve 2022. Takes supplements GI: hx of gerd and states feels great now since her bariatric surgery when she reports that the hiatal hernia was fixed. 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 Sister No problems noted. Sister No problems noted. Sister No problems noted. Sister Hypertension Stroke Brother No problems noted. 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 Current occupational exposures/hazards: No Cognitive needs: No Hearing needs: No 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.) Questionnaire Thrive Questionnaire Date Thrive assessed: 09/20/24 I am a: Patient What is your living situation today?: I have a steady place to live Within the past 12 months, did the food you bought not last and you didn't have the money to get more?: Never true Within the past 12 months, did you worry whether your food would run out before you got money to buy more?: Never true Do you have trouble paying for medicines?: No Do you have trouble getting transportation to medical appointments?: No Do you have trouble paying your heating and electricity bill?: No Do you have trouble taking care of your child, family member or friend?: No Do you have trouble with day-to-day activities such as bathing, preparing meals, shopping, managing finances, etc.?: No Are you currently unemployed and looking for a job?: No Are you interested in more education?: No Please select the resources that you would like help with: None Currently or been in a relationship where the following occur: No concerns reported THRIVE Score: 0 ANNETTE-7 AMB Questionnaire ANNETTE-7 Date ANNETTE - 7 assessed: 09/27/24 Source: Developed by Drs. Leobardo Rainey, Neelam Cosme, David Louise and colleagues, with an educational phylicia from [employer]. Physical exam (Primary Care) Vital Signs: Last Vital Signs Temp 98.3 F 01/03/25 08:43 Pulse 81 01/03/25 08:43 Resp 14 01/03/25 08:43 BP 104/74 01/03/25 08:43 Pulse Ox 98 01/03/25 08:43 Oxygen Delivery Method Room Air 01/03/25 08:43 BMI result Body Mass Index 28.5 Tobacco/Smoking Status: Tobacco use Status Tobacco use date assessed 09/27/24 01/03/25 08:46 Patient Tobacco Use Status Never used Tobacco 01/03/25 08:46 e-Cigarette/Vaping Use Never Used 01/03/25 08:46 Thrive Assessment: Date of Thrive Assessment Date Thrive assessed 09/20/24 01/03/25 08:46 Currently or been in a relationship where the following occur: No concerns reported Const Orientation/consciousness: patient oriented x3 HENMT Ears: hearing grossly normal bilaterally Neck Thyroid: Thyroid normal Lymphatic: no lymphadenopathy noted Resp Auscultation: clear to auscultation bilaterally Cardio Rate: regular rate Rhythm: regular rhythm Heart sounds: S1 normal heart sound present and S2 normal heart sound present GI Inspection: Yes normal to inspection Palpation (GI): Soft to palpation and Other GI palpation findings present (nontender, no cva tenderness) Auscultation: normoactive bowel sounds Rectal Exam - Female: deferred Skin General skin exam: no rashes or lesions noted Neuro General: patient oriented x3, gait normal and no focal motor deficits Results Reviewed Results Reviewed: Laboratory Tests 12/21/24 12/22/24 12/22/24 07:01 05:29 10:28 WBC 5.8 RBC 4.39 Hgb 13.6 Hct 39.2 Plt Count 249 Sodium 139 Potassium 4.1 D Chloride 103 Carbon Dioxide 27 Anion Gap 13 BUN 17 H Creatinine 0.60 Estim Creat Clear Calc 119.9 Estimated GFR > 60 Random Glucose 126 H Calcium 9.0 D AST 30 ALT 20 Alkaline Phosphatase 52 Triglycerides 50 Cholesterol 219 H LDL Cholesterol, Calc 124 H HDL Cholesterol 85 Vitamin B12 1734 H Folate 13.9 TSH 0.56 Coding Level of Care Code Est Pt Level 4 (58210) Complex EM visit Add On G2211 Diagnoses Hypertension I10 Thyroid nodule E04.1 Assessment & Plan Assessment & Plan (1) Hypertension: Code(s): I10 - Essential (primary) hypertension Category: Medical Plan: We will treat with spironolactone. Advised short term follow up. Advised that she has to check her labs. Patient understands and agrees with this plan (2) Thyroid nodule: Code(s): E04.1 - Nontoxic single thyroid nodule Category: Medical Plan: Referral to endo placed Orders: Orders Basic Metabolic Panel 01/03/25 I10 - Essential (primary) hypertension Referrals Endocrinology Referral E04.1 - Nontoxic single thyroid nodule Medications: New spironolactone 25 mg PO DAILY 30 tabs 1RF Discontinued potassium chloride Discontinued Reason: Doctor's Order 40 mEq (15 mL) PO BID 750 mL 0RF losartan Discontinued Reason: Doctor's Order 25 mg PO DAILY 90 tabs 0RF
--- OUTSIDE RECORDS SUMMARY | 2025-01-03 09:14 | XMS_ITS | Clinical Summary ---
Author Organization [facility] Address [address] [place] [address] Care Team Providers Care Health Safety Coordinator Name Role Phone System, Provider Not In [...] ( - 2024- season) 12/10/202411/2020, 07/26/2020 Insurance [facility] Care Teams Health Safety Coordinator Relationship Specialty Start Date End Date System, Provider Not In PCP - General 09/27/21
--- OUTSIDE RECORDS SUMMARY | 2025-01-03 09:14 | XMS_ITS | Clinical Summary ---
Author Organization [facility] Address [address] [place] [address] [place] [id number] Phone Care Team Providers Care Car Shagger Name Role Phone Melisa Robb Primary Care Provider +1- [phone] Social History Tobacco Use Types Packs/Day Years [...] Description 02/15/2025 8:00 AM EST Office [place] [facility] [address] [facility], [address] [place] [address] Janak Painter MD [address] [address] [email or web address] Health Maintenance Due Date Last Done Comments [...] topic Medical Devices Not on file Insurance [facility] PCP XI[place] RICE CONNECTORCARE WELLSENSE NON NSPG PCP SILVER CLARITY CONNECTORCARE WELLSENSE NON NSPG PCP SILVER CLARITY CONNECTORCARE WELLSENSE NON NSPG PCP SILVER CLARITY CONNECTORCARE WELLSENSE NON NSPG PCP [place] [employer] CONNECTORCARE WELLSENSE NON NSPG PCP [place] [facility] CONNECTORCARE Care Teams Car Shagger Relationship Specialty Start Date End Date Melisa Robb PA [address] [place] [phone] PCP - General Physician Materials And Corrosion Engineer 08/29/24 Additional Source Comments The information contained in this document represents components of the legal health record. It is not the complete legal health record.[facility]
== END 2025-01-03 09:06 | disposition home or self-care (01) ==
LOC: HO.HMCFM 08:41
PROVIDERS: PCP Physician Assistant; Visit Provider Physician Assistant
DX: I10 Essential (primary) hypertension (principal); E04.1 Nontoxic single thyroid nodule

== ENCOUNTER → 2025-01-03 08:41 | Outpatient (BNVA) | payer OTHER, SELFPAY | PROVIDERS: PCP Physician Assistant; Visit Provider Physician Assistant | DX: I10 Essential (primary) hypertension (principal); E04.1 Nontoxic single thyroid nodule | CPT/HCPCS: 99212 ==

== ENCOUNTER 2025-01-09 10:04 | Outpatient (AMB) | payer OTHER, SELFPAY ==
[2025-01-09 10:25] VITALS: BP 129/73; PULSE 67; TEMP 36.6; O2SAT 98
--- NOTE | 2025-01-09 10:25 | A.OFFVIS_ITS ---
VS Expanded 01/09/25 10:25 BP 129/73 Blood Pressure Location Rt brachial Blood Pressure Position Sitting Pulse 67 Pulse Source Pulse Oximeter Temp 97.8 F Temperature Source Temporal Artery Scan Pulse Oximetry 98 Oxygen Delivery Method Room Air Intake Visit Reasons: OV PO Thighplasty 12/25/24 Allergies thiopental (From Pentothal) Allergy (Mild, Verified 01/09/25 10:25) Nausea (from sodium pentothal) HPI Comments Details: Pt is 4w s/p thighplasty 12/25/2024. Pain controlled. No fevers at home. Taking abx and following meal plan as per Dr. Julia AKBAR Medical History Axillary nerve palsy Constipation Dysplastic nevus Hx of transfusion of packed red blood cells Arthritis Hx of ectopic PONV (postoperative nausea and vomiting) History of diverticulitis Thyroid nodule Insomnia DJD (degenerative joint disease) Hypertension Surgical History History of surgery on arm S/P panniculectomy H/O tubal ligation S/P laparoscopic sleeve gastrectomy Hx of cholecystectomy Hx of colonoscopy Hx of hysterectomy, total Family History Mother Hypertension Father Hypertension Sister No problems noted. Sister No problems noted. Sister No problems noted. Sister No problems noted. Sister Hypertension Stroke Brother No problems noted. 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 Current occupational exposures/hazards: No Cognitive needs: No Hearing needs: No 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.) Physical Exam Vital Signs: Last Vital Signs Temp 97.8 F 01/09/25 10:25 Pulse 67 01/09/25 10:25 BP 129/73 01/09/25 10:25 Pulse Ox 98 01/09/25 10:25 Oxygen Delivery Method Room Air 01/09/25 10:25 Const General: cooperative, comfortable and no acute distress Orientation/consciousness: patient oriented x3 Skin Other: thigh incisions c/d/i, no surrounding erythema or drainage, one small blister on R leg from tape Neuro General: patient oriented x3 Assessment & Plan Assessment & Plan (1) S/P thighplasty: Code(s): Z98.890 - Other specified postprocedural states Category: Medical Plan Continue steri-strips, Xeroform, DSD changed daily. Pt declined further VNA visits. Continue abx and meal plan. Avoid exercise and heavy lifting. No driving yet. RTC 1w.
--- OUTSIDE RECORDS SUMMARY | 2025-01-09 11:20 | XMS_ITS | Clinical Summary ---
Author Organization [facility] Address [address] [place] [address] [place] [phone] Phone Care Team Providers Care Steamship Agent Name Role Phone Melisa Robb Primary Care Provider +1- [phone] Social History Tobacco Use Types Packs/Day Years [...] Description 02/15/2025 8:00 AM EST Office Visit [facility] [place] [place] Re[facility]ive Surgery [address] [facility], [address] [place] [address] Janak Painter MD [address] [address] [email or web address] Health Maintenance Due Date Last Done Comments [...] topic Medical Devices Not on file Insurance [facility] PCP XIOMARA RICE CONNECTORCARE WELLSENSE NON NSPG PCP SILVER CLARITY CONNECTORCARE WELLSENSE NON NSPG PCP SILVER CLARITY CONNECTORCARE WELLSENSE NON NSPG PCP SILVER CLARITY CONNECTORCARE WELLSENSE NON NSPG PCP [place] [facility] CONNE[employer] WELLSENSE NON NSPG PCP [place] [facility] CONNE[facility] Care Teams Steamship Agent Relationship Specialty Start Date End Date Melisa Robb PA [address] [place] [id number] PCP - General Physician Wooling Machine Operator 08/29/24 Additional Source Comments The information contained in this document represents components of the legal health record. It is not the complete legal health record.[facility]
--- OUTSIDE RECORDS SUMMARY | 2025-01-09 11:20 | XMS_ITS | Clinical Summary ---
Author Organization [facility] Address [address] [place] [address] Care Team Providers Care Accuracy Expert Name Role Phone System, Provider Not In [...] ( - 2024- season) 12/10/202411/2020, 07/26/2020 Insurance [facility] Care Teams Accuracy Expert Relationship Specialty Start Date End Date System, Provider Not In PCP - General 09/27/21
== END 2025-01-09 10:47 | disposition home or self-care (01) ==
PROVIDERS: PCP Physician Assistant; Visit Provider Physician Assistant Surgical
DX: Z98.890 Other specified postprocedural states (principal)
CPT/HCPCS: 99024

== ENCOUNTER → 2025-01-09 10:04 | Outpatient (BNVA) | payer OTHER, SELFPAY | PROVIDERS: PCP Physician Assistant; Visit Provider Physician Assistant Surgical | DX: Z48.817 Encounter for surgical aftercare following surgery on the skin and subcutaneous tissue (principal); Z98.890 Other specified postprocedural states | CPT/HCPCS: 99212 ==

== ENCOUNTER 2025-01-16 09:58 | Outpatient (AMB) | payer OTHER, SELFPAY ==
[2025-01-16 10:17] VITALS: BP 127/77; PULSE 66; TEMP 35.7; O2SAT 98
--- NOTE | 2025-01-16 10:17 | MHC.OFFVISWM ---
VS Expanded 01/16/25 10:17 BP 127/77 Blood Pressure Location Rt brachial Blood Pressure Position Sitting Pulse 66 Pulse Source Pulse Oximeter Temp 96.3 F L Temperature Source Temporal Artery Scan Pulse Oximetry 98 Oxygen Delivery Method Room Air Intake Visit Reasons: OV PO Thighplasty 12/25/24 Allergies thiopental (From Pentothal) Allergy (Mild, Verified 01/16/25 10:18) Nausea (from sodium pentothal) Medication List - Last Reconciled 01/16/25 by BERTIN Grubbs acetaminophen 500 mg PO DAILY biotin 1 mg PO DAILY docusate sodium (Colace) 100 mg PO DAILY melatonin 10 mg PO DAILY PRN multivitamin 1 tab PO DAILY ondansetron 4 mg PO Q12H spironolactone 25 mg PO DAILY triamcinolone acetonide 0.1% 1 appl topical BID PRN HPI Comments Details: Pt is 5w s/p thighplasty 12/25/2024. No fevers at home. Tolerating meal plan. on abx. Leaving incisions open to air. PFSH Medical History Axillary nerve palsy Constipation Dysplastic nevus Hx of transfusion of packed red blood cells Arthritis Hx of ectopic PONV (postoperative nausea and vomiting) History of diverticulitis Thyroid nodule Insomnia DJD (degenerative joint disease) Hypertension Surgical History History of surgery on arm S/P panniculectomy H/O tubal ligation S/P laparoscopic sleeve gastrectomy Hx of cholecystectomy Hx of colonoscopy Hx of hysterectomy, total Family History Mother Hypertension Father Hypertension Sister No problems noted. Sister No problems noted. Sister No problems noted. Sister No problems noted. Sister Hypertension Stroke Brother No problems noted. 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 Current occupational exposures/hazards: No Cognitive needs: No Hearing needs: No 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 May drive. No heavy lifting or exercise yet. Continue remainder of abx (pt reports has about 10d left). RTC 1 week.
== END 2025-01-16 10:37 | disposition home or self-care (01) ==
LOC: HO.HBS 09:59
PROVIDERS: PCP Physician Assistant; Visit Provider Physician Assistant Surgical
DX: Z71.3 Dietary counseling and surveillance (principal); Z98.890 Other specified postprocedural states
CPT/HCPCS: 99024

== ENCOUNTER → 2025-01-16 09:58 | Outpatient (BNVA) | payer OTHER, SELFPAY | PROVIDERS: PCP Physician Assistant; Visit Provider Physician Assistant Surgical | DX: Z48.817 Encounter for surgical aftercare following surgery on the skin and subcutaneous tissue (principal); Z98.890 Other specified postprocedural states | CPT/HCPCS: 99212 ==

== ENCOUNTER 2025-01-18 07:09 | Outpatient (REF) | payer OTHER, SELFPAY ==
--- OUTSIDE RECORDS SUMMARY | 2025-01-18 07:13 | XMS_ITS | Clinical Summary ---
Author Organization [facility] Address [address] [place] [address] Care Team Providers Care Top And Seat Cover Fitter Name Role Phone System, Provider Not In [...] ( - 2024- season) 12/10/202411/2020, 07/26/2020 Insurance [facility] Care Teams Top And Seat Cover Fitter Relationship Specialty Start Date End Date System, Provider Not In PCP - General 09/27/21
[2025-01-18 08:24] LABS: Anion Gap 11 (12-20); Blood Urea Nitrogen 18 mg/dL (9-16); Calcium 9.9 mg/dL (8.4-10.2); Carbon Dioxide 29 mmol/L (22-29); Chloride 103 mmol/L (96-108); Estimated Glomerular Filt Rate > 60; Potassium 4.1 mmol/L (3.3-5.1); Sodium 139 mmol/L (135-145)
== END 2025-01-18 07:10 | disposition home or self-care (01) ==
LOC: HO.LAB 07:09
PROVIDERS: PCP Physician Assistant; Visit Provider Physician Assistant
DX: I10 Essential (primary) hypertension (principal)
CPT/HCPCS: 36415; 80048

== ENCOUNTER 2025-01-23 10:00 | Outpatient (AMB) | payer OTHER, SELFPAY ==
[2025-01-23 10:07] VITALS: BP 153/73; PULSE 71; TEMP 36.3
--- NOTE | 2025-01-23 10:07 | A.OFFVIS_ITS ---
VS Expanded 01/23/25 10:07 BP 153/73 H Blood Pressure Location Rt brachial Blood Pressure Position Sitting Pulse 71 Pulse Source Pulse Oximeter Temp 97.3 F Temperature Source Temporal Artery Scan Height 5 ft 8 in Intake Visit Reasons: OV PO Thighplasty 12/25/24 Biology Research Assistant Required: No Accompanied by: Self / Same As Patient Allergies thiopental (From Pentothal) Allergy (Mild, Verified 01/16/25 10:18) Nausea (from sodium pentothal) Medication List - Last Reconciled 01/23/25 by BERTIN Grubbs acetaminophen 500 mg PO DAILY biotin 1 mg PO DAILY docusate sodium (Colace) 100 mg PO DAILY melatonin 10 mg PO DAILY PRN multivitamin 1 tab PO DAILY ondansetron 4 mg PO Q12H spironolactone 25 mg PO DAILY triamcinolone acetonide 0.1% 1 appl topical BID PRN HPI Comments Details: Pt is 6w s/p thighplasty 12/25/2024. No fevers at home. Tolerating meal plan, on abx. Leaving incisions open to air. [facility] Medical History Axillary nerve palsy Constipation Dysplastic nevus Hx of transfusion of packed red blood cells Arthritis Hx of ectopic PONV (postoperative nausea and vomiting) History of diverticulitis Thyroid nodule Insomnia DJD (degenerative joint disease) Hypertension Surgical History History of surgery on arm S/P panniculectomy H/O tubal ligation S/P laparoscopic sleeve gastrectomy Hx of cholecystectomy Hx of colonoscopy Hx of hysterectomy, total Family History Mother Hypertension Father Hypertension Sister No problems noted. Sister No problems noted. Sister No problems noted. Sister No problems noted. Sister Hypertension Stroke Brother No problems noted. 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 Current occupational exposures/hazards: No Cognitive needs: No Hearing needs: No 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.) Physical Exam Vital Signs: Last Vital Signs Temp 97.3 F 01/23/25 10:07 Pulse 71 01/23/25 10:07 BP 153/73 H 01/23/25 10:07 Const General: cooperative, comfortable and no acute distress Orientation/consciousness: patient oriented x3 Skin Other: thighplasty incisions c/d/i, pt reports one small area in center of incision on each side which is palpably more firm, but nontender and no overlying skin changes Neuro General: patient oriented x3 Assessment & Plan Assessment & Plan (1) S/P thighplasty: Code(s): Z98.890 - Other specified postprocedural states Category: Medical (2) S/P laparoscopic sleeve gastrectomy: Comment: 09/2022 Code(s): Z98.84 - Bariatric surgery status Category: Medical Plan May shower daily. May drive. Continue remainder of abx (pt reports has about 3d left). May resume gentle exercise/walking, no heavy lifting until 2mo postop. RTC in September for annual, pt will call if any issues before then.
--- OUTSIDE RECORDS SUMMARY | 2025-01-23 11:46 | XMS_ITS | Clinical Summary ---
Author Organization [facility] Address [address] [place] [address] Care Team Providers Care Line Haul Truck Driver Name Role Phone System, Provider Not In [...] Insurance [facility] Care Teams Line Haul Truck Driver Relationship Specialty Start Date End Date System, Provider Not In PCP - General 09/27/21
--- OUTSIDE RECORDS SUMMARY | 2025-01-23 11:46 | XMS_ITS | Clinical Summary ---
Author Organization [facility] Address [address] [place] [address] Phone Care Team Providers Care Sock And Stocking Ironer Name Role Phone Melisa Robb Primary Care Provider +1- [phone] Social History Tobacco Use Types Packs/Day Years [...] 3: 43 PM EDT Plan of Treatment Health Maintenance Due Date [...] 2017 ZOSTER VACCINES (1 of 2) 2017 INFLUENZA VACCINE (#1) 2024 COVID-19 VACCINE (2 - 2024-2 6 season) 2024 07/26/2020 RSV VACCINE (1 - 1-dose 75+ series) 2042 HEPATITIS A VACCINES Aged Out No long [...] topic Medical Devices Not on file Insurance [facility] NON NSPG PCP [facility] WELLSENSE NON NSPG PCP SILVER CLARITY CONNECTORCARE WELLSENSE NON NSPG PCP S[place] CLARITY CONNECTORCARE WELLSENSE NON NSPG PCP SILVER CLARITY CONNECTORCARE WELLSENSE NON NSPG [facility] Care Teams Sock And Stocking Ironer Relationship Specialty Start Date End Date Melisa Robb PA [address] [place] [id number] PCP - General Physician Sofa Inspector 08/29/24 Additional Source Comments The information contained in this document represents components of the legal health record. It is not the complete legal health record.[facility]
== END 2025-01-23 10:39 | disposition home or self-care (01) ==
LOC: HO.HBS 10:01
PROVIDERS: PCP Physician Assistant; Visit Provider Physician Assistant Surgical
DX: L98.7 Excessive and redundant skin and subcutaneous tissue (principal); Z98.890 Other specified postprocedural states; Z90.3 Acquired absence of stomach [part of]; Z98.84 Bariatric surgery status
CPT/HCPCS: 99024

== ENCOUNTER → 2025-01-23 10:00 | Outpatient (BNVA) | payer OTHER, SELFPAY | PROVIDERS: PCP Physician Assistant; Visit Provider Physician Assistant Surgical | DX: L98.7 Excessive and redundant skin and subcutaneous tissue (principal); Z98.890 Other specified postprocedural states; Z98.84 Bariatric surgery status; Z90.3 Acquired absence of stomach [part of] | CPT/HCPCS: 99212 ==

== ENCOUNTER 2025-01-24 09:45 | Outpatient (AMB) | payer OTHER, SELFPAY ==
--- NOTE | 2025-01-24 09:52 | MHC.PC.OV ---
Vital Signs 01/24/25 09:58 01/24/25 10:05 Height 5 ft 8 in Weight 193 lb 6 oz BMI 29.4 BP 148/88 H 134/86 Blood Pressure Location Rt brachial Rt brachial Position Sitting Sitting Respiration 14 Pulse 85 Pulse Source Pulse Oximeter Pulse Oximetry (%) 98 Oxygen Delivery Method Room Air Intake Visit Reasons: med check Intake Note: Medication follow up. Blood pressure has been running high since being taken off the blood pressure medicati Apartment Community Manager Required: No Allergies thiopental (From Pentothal) Allergy (Mild, Verified 01/24/25 09:57) Nausea (from sodium pentothal) Medication List - Last Reconciled 01/24/25 by Melisa Robb PA-C acetaminophen 500 mg PO DAILY biotin 1 mg PO DAILY docusate sodium (Colace) 100 mg PO DAILY melatonin 10 mg PO DAILY PRN multivitamin 1 tab PO DAILY ondansetron 4 mg PO Q12H Tobacco use date assessed: 01/24/25 HPI med check HPI Details Pt is a 59 y/o female who presents today for a follow up CV: bp today is 134/86. She is currently on spironolactone 25 mg daily. She is still feeling like she is retaining water. General: follows with bariatric surgery. she is s/p sleeve 2022. Takes supplements GI: hx of gerd and states feels great now since her bariatric surgery when she reports that the hiatal hernia was fixed. [facility] Medical History Axillary nerve palsy Constipation Dysplastic nevus Hx of transfusion of packed red blood cells Arthritis Hx of ectopic PONV (postoperative nausea and vomiting) History of diverticulitis Thyroid nodule Insomnia DJD (degenerative joint disease) Hypertension Surgical History History of surgery on arm S/P panniculectomy H/O tubal ligation S/P laparoscopic sleeve gastrectomy Hx of cholecystectomy Hx of colonoscopy Hx of hysterectomy, total Family History Mother Hypertension Father Hypertension Sister No problems noted. Sister No problems noted. Sister No problems noted. Sister No problems noted. Sister Hypertension Stroke Brother No problems noted. 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 Current occupational exposures/hazards: No Cognitive needs: No Hearing needs: No 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.) Questionnaire Thrive Questionnaire Date Thrive assessed: 09/20/24 I am a: Patient What is your living situation today?: I have a steady place to live Within the past 12 months, did the food you bought not last and you didn't have the money to get more?: Never true Within the past 12 months, did you worry whether your food would run out before you got money to buy more?: Never true Do you have trouble paying for medicines?: No Do you have trouble getting transportation to medical appointments?: No Do you have trouble paying your heating and electricity bill?: No Do you have trouble taking care of your child, family member or friend?: No Do you have trouble with day-to-day activities such as bathing, preparing meals, shopping, managing finances, etc.?: No Are you currently unemployed and looking for a job?: No Are you interested in more education?: No Please select the resources that you would like help with: None Currently or been in a relationship where the following occur: No concerns reported THRIVE Score: 0 ANNETTE-7 AMB Questionnaire ANNETTE-7 Date ANNETTE - 7 assessed: 09/27/24 Source: Developed by Drs. Leobardo Rainey, Neelam Cosme, David Louise and colleagues, with an educational phylicia from [employer]. Physical exam (Primary Care) Vital Signs: Last Vital Signs Pulse 85 01/24/25 09:58 Resp 14 01/24/25 09:58 BP 134/86 01/24/25 10:05 Pulse Ox 98 01/24/25 09:58 Oxygen Delivery Method Room Air 01/24/25 09:58 BMI result Body Mass Index 29.4 Tobacco/Smoking Status: Tobacco use Status Tobacco use date assessed 01/24/25 01/24/25 10:06 Patient Tobacco Use Status Never used Tobacco 01/24/25 09:54 e-Cigarette/Vaping Use Never Used 01/24/25 09:54 Thrive Assessment: Date of Thrive Assessment Date Thrive assessed 09/20/24 01/24/25 09:54 Currently or been in a relationship where the following occur: No concerns reported Const Orientation/consciousness: patient oriented x3 HENMT Ears: hearing grossly normal bilaterally Neck Thyroid: Thyroid normal Lymphatic: no lymphadenopathy noted Resp Auscultation: clear to auscultation bilaterally Cardio Rate: regular rate Rhythm: regular rhythm Heart sounds: S1 normal heart sound present and S2 normal heart sound present GI Inspection: Yes normal to inspection Palpation (GI): Soft to palpation and Other GI palpation findings present (nontender, no cva tenderness) Auscultation: normoactive bowel sounds Rectal Exam - Female: deferred Skin General skin exam: no rashes or lesions noted Neuro General: patient oriented x3, gait normal and no focal motor deficits Coding Level of Care Code Est Pt Level 4 (16789) Complex EM visit Add On G2211 Diagnoses Hypertension I10 Hypokalemia E87.6 Assessment & Plan Assessment & Plan (1) Hypertension: Code(s): I10 - Essential (primary) hypertension Category: Medical Plan: Increase spironolactone to 50 mg (2) Hypokalemia: Code(s): E87.6 - Hypokalemia Category: Medical Plan: We will plan to recheck labs Orders: Orders Basic Metabolic Panel Today E87.6 - Hypokalemia, I10 - Essential (primary) hypertension Medications: New spironolactone 50 mg PO QAM 90 tabs 1RF
[2025-01-24 09:58] VITALS: BP 148/88; PULSE 85; RESP 14; O2SAT 98; BMI 29.4
[2025-01-24 10:05] VITALS: BP 134/86
--- OUTSIDE RECORDS SUMMARY | 2025-01-24 11:23 | XMS_ITS | Clinical Summary ---
Author Organization [facility] Address [address] [place] [id number] Phone Care Team Providers Care Field Crop Farmworker Name Role Phone Melisa Robb Primary Care Provider [phone]- [phone] Social History Tobacco Use Types Packs/Day Years [...] topic Medical Devices Not on file Insurance [facility] CONNECTORCARE [facility] NON NSPG PCP [facility] CONNECTORCARE WELL[facility]ENSE NON NSPG PCP [facility] CONNECTORCARE WELLSENSE NON NSPG PCP [facility] CONNECTORCARE WELLSENSE NON NSPG PCP S[facility] CONNECTORCARE WELLSENSE NON NSPG [facility]CP [facility] Care Teams Field Crop Farmworker Relationship Specialty Start Date End Date Melisa Robb PA [address] [place] [address] [phone] PCP - General Physician Central Office Installer 08/29/24 Additional Source Comments The information contained in this document represents components of the legal health record. It is not the complete legal health record.[facility]
--- OUTSIDE RECORDS SUMMARY | 2025-01-24 11:23 | XMS_ITS | Clinical Summary ---
Author Organization [facility] Address [address] [place] [address] Care Team Providers Care Melting Supervisor Name Role Phone System, Provider Not In [...] ( - 2024- season) 12/10/202411/2020, 07/26/2020 Insurance [facility] Care Teams Melting Supervisor Relationship Specialty Start Date End Date System, Provider Not In PCP - General 09/27/21
== END 2025-01-24 10:18 | disposition home or self-care (01) ==
LOC: HO.HMCFM 09:46
PROVIDERS: PCP Physician Assistant; Visit Provider Physician Assistant
DX: I10 Essential (primary) hypertension (principal); E87.6 Hypokalemia

== ENCOUNTER → 2025-01-24 09:45 | Outpatient (BNVA) | payer OTHER, SELFPAY | PROVIDERS: PCP Physician Assistant; Visit Provider Physician Assistant | DX: I10 Essential (primary) hypertension (principal); E87.6 Hypokalemia | CPT/HCPCS: 99212 ==

== ENCOUNTER 2025-01-25 07:21 | Outpatient (REF) | payer OTHER, SELFPAY ==
--- OUTSIDE RECORDS SUMMARY | 2025-01-25 07:23 | XMS_ITS | Clinical Summary ---
Author Organization [facility] Address [address] [place] [address] Care Team Providers Care Distribution Technician Name Role Phone System, Provider Not In [...] ( - 2024- season) 12/10/202411/2020, 07/26/2020 Insurance [facility] Care Teams Distribution Technician Relationship Specialty Start Date End Date System, Provider Not In PCP - General 09/27/21
--- OUTSIDE RECORDS SUMMARY | 2025-01-25 07:23 | XMS_ITS | Clinical Summary ---
Author Organization [facility] Address [address] [place] [phone] Phone Care Team Providers Care Acid Pumper Name Role Phone Melisa Robb Primary Care Provider +1- [phone] Social History Tobacco Use Types Packs/Day Years [...] topic Medical Devices Not on file Insurance [facility] CONNECTORCARE [facility] NON NSPG PCP [facility] CONNECTORCARE WELLSENSE NON NSPG PCP [facility] CONNECTORCARE WELLSENSE NON NSPG PCP S[facility] CONNECTORCARE WELLSENSE NON NSPG PCP [facility] CONNECTORCARE WELLSENSE NON NSPG PCP [facility] Care Teams Acid Pumper Relationship Specialty Start Date End Date Melisa Robb PA [address] [place] [address] [phone] PCP - General Physician Alligator Hunter 08/29/24 Additional Source Comments The information contained in this document represents components of the legal health record. It is not the complete legal health record.[facility]
[2025-01-25 08:47] LABS: Anion Gap 12 (12-20); Blood Urea Nitrogen 17 mg/dL (9-16); Calcium 10.1 mg/dL (8.4-10.2); Carbon Dioxide 28 mmol/L (22-29); Chloride 106 mmol/L (96-108); Estimated Glomerular Filt Rate > 60; Potassium 4.0 mmol/L (3.3-5.1); Sodium 142 mmol/L (135-145)
== END 2025-01-25 07:22 | disposition home or self-care (01) ==
LOC: HO.LAB 07:21
PROVIDERS: PCP Physician Assistant; Visit Provider Physician Assistant
DX: I10 Essential (primary) hypertension (principal); E87.6 Hypokalemia
CPT/HCPCS: 36415; 80048

== ENCOUNTER 2025-01-29 13:20 | Outpatient (AMB) | payer OTHER, SELFPAY ==
--- NOTE | 2025-01-29 13:23 | A.OFFVIS_ITS ---
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 She had weight loss surgery followed by brachioplasty of both arms on July 12, [address] Elham Huff.? In the immediate postoperative period she found that she could not move her right shoulder.? She's in no pain in the arm but has some numbness on the outer aspect of the right shoulder.? Distal strength is normal.? There are no problems with the left upper extremity. [facility] Medical History Axillary nerve palsy Constipation Dysplastic nevus Hx of transfusion of packed red blood cells Arthritis Hx of ectopic PONV (postoperative nausea and vomiting) History of diverticulitis Thyroid nodule Insomnia DJD (degenerative joint disease) Hypertension Surgical History History of surgery on arm S/P panniculectomy H/O tubal ligation S/P laparoscopic sleeve gastrectomy Hx of cholecystectomy Hx of colonoscopy Hx of hysterectomy, total Family History Mother Hypertension Father Hypertension Sister No problems noted. Sister No problems noted. Sister No problems noted. Sister No problems noted. Sister Hypertension Stroke Brother No problems noted. 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 Difficulty getting to sleepdenies.? Difficulty maintaining sleepadmits.? Urge to move legsdenies.? Teeth grindingdenies.? Shouting or Kicking during sleep denies.? Abnormal behavior during sleepdenies.? Excessive sleepdenies.? Snoring denies.? Daytime sleepinessdenies. ???General/Constitutional:? Change in appetitedenies.? Chillsdenies.? Fatiguedenies.? Feverdenies.? Weight gaindenies.? Weight lossdenies. ???Ophthalmologic:? Blurred visiondenies.? Diminished visual acuitydenies. ???ENT:? Stuffinessdenies.? Decreased hearingdenies.? Dry mouthdenies.? Ear paindenies.? Nosebleeddenies.? Ringing in the earsdenies.? Sinus paindenies.? Sore throat denies.? Swollen glandsdenies. ???Endocrine:? Cold intolerancedenies.? Excessive thirstdenies.? Frequent urinationdenies.? Heat intolerancedenies. ???Respiratory:? Shortness of breathdenies.? Chest paindenies.? Coughdenies. ???Breast:? Breast lumpdenies.? Nipple dischargedenies. ???Cardiovascular:? Chest pain at restdenies.? Chest pain with exertiondenies.? Claudicationdenies .? Dizzinessdenies.? Fluid accumulation in the legsdenies.? Irregular heartbeat denies.? Palpitationsdenies. ???Gastrointestinal:? Abdominal paindenies.? Constipationdenies.? Diarrheadenies.? Difficulty swallowingdenies.? Heartburndenies.? Nauseadenies.? Rectal bleedingdenies. ???Hematology:? Easy bruisingdenies.? Prolonged bleedingdenies. ???Genitourinary:? Frequent urinationdenies.? Urgencydenies.? Incontinencedenies.? Erectile Dysfunctiondenies. ???Musculoskeletal:? Neck paindenies.? Back paindenies.? Muscle achesdenies.? Painful jointsdenies.? Sciaticadenies.? WeaknessRight arm and shoulder. ???Podiatric:? Difficulty walkingdenies.? Foot numbnessdenies. ???Neurologic:? Difficulty swallowingdenies.? Balance difficultydenies.? Coordinationnormal.? Difficulty speakingdenies.? Dizzinessdenies.? Faintingdenies.? Gait abnormality denies.? Headachedenies.? Loss of strengthdenies.? Loss of use of extremity denies.? Low back paindenies.? Memory lossdenies.? Seizuresdenies.? Ticsdenies.? Tingling/Numbnessdenies.? Transient loss of visiondenies.? Tremordenies. ???Psychiatric:? Anxietydenies.? Auditory/visual hallucinationsdenies.? Delusionsdenies.? Depre ssed mooddenies.? Stressorsdenies.? Substance abusedenies.? Suicidal thoughts denies. Physical Exam Neuro Other: Neurological: Abnormal neurological findings:??Right deltoid and the supra and infraspinatus are now 5/5 , with preserved biceps, triceps and distal strength is normal. Decreased sensation over distal deltoid insertion on the right.?Mental Status:??alert and oriented X 3,?Normal attention, orientation, memory and affect.?Cranial Nerves:??Pupils are equal, round and reactive to light. Fundoscopy shows normal disc bilaterally. External occular muscles are intact. Visual roca are full, no ptosis. Face is symmetrical, no facial weakness or droop. Facial sensations are normal. Tongue protrudes in midline. Palate elevates symmetrically. Shoulder shrugging is normal..?Motor Examination:??As above, otherwise Normal muscle tone, bulk and strength,?No atrophy or fasciculations,?No drift of the extended upper extremities,?Deep tendon reflexes are 2+?,?Plantars are flexor?.?Straight Leg Raising:??90 degrees.?Sensory Exam:??Normal light touch, temperature, pinprick, vibration and joint-position sensations?,?Rhomberg sign is absent.?Coordination:??no ataxia,?no titubation,?rlaclx-lv-vjnx, ncnp-jisd-cgfd test and rapid alternating movements were normal.?Gait Exam:??Within normal limits.?Cerebellar Signs:??Otojwt-xc-aukn and xpho-xy-bels is normal,?no dysdiadochokinesia?.?Extrapyramidal System:??No tremor, rigidity with normal facial expressions,?No bradykinesia, no bradyphrenia. Normal arm swing and posture. No propulsion or retropulsion.?Speech:??Normal,?no dysphasia or dysarthria..? Mini Mental Status Exam: Level of Consciousness:??Alert.?Orientation:??Knows correct year, month, date, day and season,?Knows correct city, county and state. Knows correct location and floor.?Registration:??Able to register 3 objects.?Attention:??Serial 7's performed accurately.?Recall:??Able to recall 3 out of 3 objects.?Langu age:??Normal spontaneous speech, fluency, repetition,naming, comprehension, reading and writing.?Total Score:??30/30.? General Examination: GENERAL APPEARANCE:??normal,?in no acute distress.?HEAD:??normocephalic,?atraumatic.?EYES:??sclera non- icteric,?conjunctiva clear.?EARS:??auditory canal clear,?tympanic membrane intact, clear.?NOSE:??no lesions.?ORAL CAVITY:??gums normal,?mucosa moist,?no lesions.?THROAT:??clear.?NECK/THYROID:??no cervical lymphadenopathy,?thyroid normal,?neck supple, full range of motion,?no carotid bruit.?SKIN:??no rashes,?no significant birthmarks.?HEART:??S1, S2 normal,?no murmurs.?LUNGS:??clear anteriorly and posteriorly.?CHEST:??no gross rib deformity,?clear to auscultation.?BACK:??normal exam of spine.?EXTREMITIES:??no edema.?PERIPHERAL PULSES:??normal.?PSYCH:??alert, oriented,?cognitive function intact,?cooperative with exam.? Assessment & Plan Assessment & Plan (1) Axillary nerve palsy: Comment: 08/15/24 NCV/EMG UE Normal motor and sensory nerve conduction velocities in the upper extremities. EMG in the right C5-T1 innervated muscles is consistent with isolated active denervation of the right deltoid, conistent with axillary nerve damage. Code(s): G54.0 - Brachial plexus disorders Category: Medical Plan Complete recovery from axillary nerve trauma. F/u PRN Coding Level of Care Code Est Pt Level 4 (60974) Diagnoses Axillary nerve palsy G54.0
== END 2025-01-29 16:03 | disposition home or self-care (01) ==
LOC: HO.HSM 13:21
PROVIDERS: PCP Physician Assistant; Visit Provider Psychiatry & Neurology Neurology
DX: G54.0 Brachial plexus disorders (principal)
CPT/HCPCS: 99214

== ENCOUNTER → 2025-01-29 13:20 | Outpatient (BNVA) | payer OTHER, SELFPAY | PROVIDERS: PCP Physician Assistant; Visit Provider Psychiatry & Neurology Neurology | DX: G54.0 Brachial plexus disorders (principal) | CPT/HCPCS: 99212 ==

== ENCOUNTER 2025-02-05 07:05 | Outpatient (REF) | payer OTHER, SELFPAY ==
--- OUTSIDE RECORDS SUMMARY | 2025-02-05 07:07 | XMS_ITS | Clinical Summary ---
Author Organization [facility] Address [address] [place] [phone] Phone Care Team Providers Care Machine Shorthand Reporter Name Role Phone Melisa Robb Primary Care Provider +1- [phone] Social History Tobacco Use Types Packs/Day Years [...] topic Medical Devices Not on file Insurance [facility] CONNECTORCARE [facility] NON NSPG PCP [facility] CONNECTORCARE WELLSENSE NON NSPG PCP [facility] CONNECTORCARE WELLSENSE NON NSPG PCP S[facility] CONNECTORCARE WELLSENSE NON NSPG PCP [facility] CONNECTORCARE WELLSENSE NON NSPG PCP [facility] Care Teams Machine Shorthand Reporter Relationship Specialty Start Date End Date Melisa Robb PA [address] [place] [address] [phone] PCP - General Physician Director Supply 08/29/24 Additional Source Comments The information contained in this document represents components of the legal health record. It is not the complete legal health record.[facility]
--- OUTSIDE RECORDS SUMMARY | 2025-02-05 07:07 | XMS_ITS | Clinical Summary ---
Author Organization [facility] Address [address] [place] [address] Care Team Providers Care Senior Ruby Developer Name Role Phone System, Provider Not In [...] 50+ (1 of 1 - PCV) 2017 RSV Vaccine 50 years and old er and Patients (1 - Risk 50-74 years 1-dose series) 2017 Zoster (Shingles) Vaccine (1 of 2) 2017 Influenza Vaccine 11/09/2024 COVID-19 Vaccine (3 - 2024- season) 12/10/202411/2020, 07/26/2020 Insurance [facility] Care Teams Senior Ruby Developer Relationship Specialty Start Date End Date System, Provider Not In PCP - General 09/27/21
[2025-02-05 08:10] LABS: Anion Gap 11 (12-20); Blood Urea Nitrogen 18 mg/dL (9-16); Calcium 9.9 mg/dL (8.4-10.2); Carbon Dioxide 30 mmol/L (22-29); Chloride 102 mmol/L (96-108); Estimated Glomerular Filt Rate > 60; Potassium 3.7 mmol/L (3.3-5.1); Sodium 139 mmol/L (135-145)
== END 2025-02-05 07:06 | disposition home or self-care (01) ==
LOC: HO.LAB 07:05
PROVIDERS: PCP Physician Assistant; Visit Provider Physician Assistant
DX: K63.5 Polyp of colon (principal); I10 Essential (primary) hypertension; Z12.11 Encounter for screening for malignant neoplasm of colon
CPT/HCPCS: 36415; 80048; 99202

== ENCOUNTER 2025-02-05 07:42 | Outpatient (AMB) | payer OTHER, SELFPAY ==
--- NOTE | 2025-02-05 08:02 | A.OFFVIS_ITS ---
Vital Signs 02/05/25 08:07 Height 5 ft 8 in Weight 189 lb BMI 28.7 BP 138/84 Blood Pressure Location Rt brachial Position Sitting Pulse 88 Pulse Source Pulse Oximeter Pulse Oximetry (%) 100 Oxygen Delivery Method Room Air Intake Visit Reasons: Colonoscopy Screening Intake Note: New pt for recall colo screening. Last colo 2018 w/ [facility] CC: C.O. intermittent constipation which she is treating with her colace which works OK for her. Reports hx of GERD which is not currently a concern and is not treated. Weight Inspector Required: No Accompanied by: Self / Same As Patient Allergies thiopental (From Pentothal) Allergy (Mild, Verified 01/24/25 09:57) Nausea (from sodium pentothal) HPI HPI Colonoscopy Screening: Details: 60 year old? female with past medical history of thighplasty, brachioplasty, st eatosis of the liver, and anxiety, laparoscopic sleeve gastrectomy, thyroid nodule, insomnia, hypertension, DJD is here today for pre colonoscopy screening.? Patient was sent to us by her PCP.? Patient had her last colonoscopy in 2019 at [facility]. Diverticulosis and couple polyps found. Patient reports that she was told to return in 5 years for screening.? History of reflux, having any new issues at this time after her sleeve gastrectomy. Occasional constipation, uses stool softener.? Denies any family history of CRC.? Denies history of difficulty with sedation or anesthesia in the past.? Negative for history of sleep apnea.? Denies any history of cardiac, renal, pulmonary, or hepatic disease.?? No history of infectious? diseases like hepatitis A, B, C, HIV or tuberculosis.? Patient is not on any anticoagulation [facility] Medical History Axillary nerve palsy Constipation Dysplastic nevus Hx of transfusion of packed red blood cells Arthritis Hx of ectopic PONV (postoperative nausea and vomiting) History of diverticulitis Thyroid nodule Insomnia DJD (degenerative joint disease) Hypertension Surgical History History of surgery on arm S/P panniculectomy H/O tubal ligation S/P laparoscopic sleeve gastrectomy Hx of cholecystectomy Hx of colonoscopy Hx of hysterectomy, total Family History Mother Hypertension Father Hypertension Sister No problems noted. Sister No problems noted. Sister No problems noted. Sister No problems noted. Sister Hypertension Stroke Brother No problems noted. 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 Current occupational exposures/hazards: No Cognitive needs: No Hearing needs: No 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.) Review of Systems Const Denies weight gain and Denies weight loss ENT Reports no additional complaints, Denies dysphagia and Denies odynophagia Card Reports no additional complaints Resp Reports no additional complaints GI Denies abdominal pain, Denies belching, Denies melena, Denies bloating, Denies change in bowel habits, Denies dysphagia, Denies excessive flatus, Denies dyspepsia, Denies heartburn, Denies diarrhea, Denies loose stools, Denies nausea, Denies odynophagia and Denies vomiting Musc Reports no additional complaints Neuro Reports no additional complaints Psych Reports no additional complaints Endo Reports no additional complaints Physical Exam Const General: healthy appearing, no acute distress and well developed Nutritional Appearance: well nourished Orientation/consciousness: patient oriented x3 Resp Effort & Inspection: normal respiratory effort, able to speak in complete sentences, no tracheal deviation and symmetric chest movement Auscultation: clear to auscultation bilaterally Cardio Rate: regular rate GI Inspection: Yes normal to inspection and No distended Palpation (GI): Soft to palpation, not firm, nontender and No hepatosplenomegaly present Auscultation: normal bowel sounds General: Yes no CVA tenderness Back/Spine/Pelvis Back: no CVA tenderness Skin General skin exam: elasticity normal, turgor normal and dry skin Neuro General: patient oriented x3 Psych Appearance: grossly normal Mental Status: mental status grossly normal Assessment & Plan Assessment & Plan (1) Colon polyp: Code(s): K63.5 - Polyp of colon Category: Medical (2) Screen for colon cancer: Code(s): Z12.11 - Encounter for screening for malignant neoplasm of colon Plan Patient denies any cardiac or respiratory symptoms.? Occasional constipation, uses Colace. Denies any issues with anesthesia in the past.? Denies any history of sleep apnea.? No history infectious diseases in the past or present.? Not on any anticoagulation therapy.? No family history of colon cancer. Patient denies melena, hematochezia, unintentional weight loss or ribbon like stools.? Discussed at length the pre-procedure,? prep, diet & medications as well as what to expect prior, during and after the procedure.?? Stressed the importance of good bowel prep.? Recommended the use of Vaseline or Calmoseptine OTC & baby wipes with bowel movements to promote comfort.? ?Patient verbalizes understanding and agrees to plan of care.? She was given the opportunity to ask questions and all questions answered.? We will see her after the procedure.? Orders: Referrals GI Procedure Notification Z12.11 - Encounter for screening for malignant neoplasm of colon Medications: New polyethylene glycol 3350 (Miralax) As directed by gastroenterology department at [facility] 238 grams PO ONCE 238 grams 0RF Z12.11 - Encounter for screening for malignant neoplasm of colon bisacodyl (Dulcolax (bisacodyl)) take 4 tabs at noon the day before your colonoscopy 20 mg (4 x 5 mg) PO ONCE 4 tabs 0RF constipation 1 day Z12.11 - Encounter for screening for malignant neoplasm of colon Coding Level of Care Code New Pt Level 3 (94985) Diagnoses Colon polyp K63.5 Screen for colon cancer Z12.11 Time Spent (min) 40 Comment 30 minutes spent with patient and additional 10 minutes spent reviewing his records
[2025-02-05 08:07] VITALS: BP 138/84; PULSE 88; O2SAT 100; BMI 28.7
== END 2025-02-05 08:27 | disposition home or self-care (01) ==
LOC: HO.HGI 07:44
PROVIDERS: PCP Physician Assistant; Visit Provider Nurse Practitioner Family
DX: Z01.818 Encounter for other preprocedural examination (principal); Z12.11 Encounter for screening for malignant neoplasm of colon; Z86.0100 Personal history of colon polyps, unspecified
CPT/HCPCS: 99203

== ENCOUNTER 2025-02-20 12:32 | Outpatient (REF) | payer OTHER, SELFPAY ==
--- NOTE | ~2025-02-20 | US_ITS ---
EXAMINATION: US THYROID CLINICAL INFORMATION: E04.1. Nontoxic signal thyroid nodule. COMPARISON: None available. TECHNIQUE: Linear transducer grayscale and color Doppler examination with attention to the region of the thyroid. FINDINGS: SIZE: Measurements of the thyroid lobes and nodules are given in sagittal, anteroposterior and transverse dimensions respectively. Right Thyroid Lobe: 6.0 x 2.0 x 1.9 cm, volume 12 mL. Parenchyma: The gland echotexture is heterogeneous. Thyroid vascularity is normal. Left Thyroid Lobe: 5.4 x 1.1 x 1.7 cm, volume 5.3 mL. Parenchyma: The gland echotexture is heterogeneous. Thyroid vascularity is normal. Isthmus: 0.2 cm in maximum AP dimension. Estimated total number of nodules greater than or equal to 1 cm: 3. Executive Vp nodules are described as follows: 1. Location: Midportion, right lobe. Size: 2.8 x 1.8 x 2.0 cm, volume 5.1 mL. Nodule characteristics: Composition: Solid (2). Echogenicity: Isoechoic (1). Shape: Not taller than wide (0). Margins: Smooth (0). Echogenic Foci: None (0). ACR TI-RADS total points: 3 ACR TI-RADS category: 3 2. Location: Lower pole, right lobe. Size: 1.5 x 1.5 x 1.7 cm, volume 2.0 mL. Nodule characteristics: Composition: Solid (2). Echogenicity: Very hypoechoic (3). Shape: Not taller than wide (0). Margins: Lobulated (2). Echogenic Foci: Macrocalcifications (1). ACR TI-RADS total points: 8 ACR TI-RADS category: 5 3. Location: Isthmus/lower pole, right lobe.. Size: 0.9 x 0.5 x 0.8 cm, volume 0.2 mL. Nodule characteristics: Composition: Solid (2). Echogenicity: Very hypoechoic (3). Shape: Not taller than wide (0). Margins: Smooth (0). Echogenic Foci: None (0). ACR TI-RADS total points: 5 ACR TI-RADS category: 4 4. Location: Midportion left lobe. Size: 1.7 x 0.6 x 1.4 cm, volume 0.8 mL. Nodule characteristics: Composition: Spongiform (0). Echogenicity: Shape: Margins: Echogenic Foci: ACR TI-RADS total points: 0 ACR TI-RADS category: 1 5. Location: Lower pole left lobe. Size: 0.6 x 0.6 x 0.7 cm, volume 0.1 mL. Nodule characteristics: Composition: Cannot be determined (2). Echogenicity: Very hypoechoic (3). Shape: Not taller than wide (0). Margins: Smooth (0). Echogenic Foci: Peripheral calcifications (2) ACR TI-RADS total points: 7 ACR TI-RADS category: 5 NODES: No lymphadenopathy is seen in the tissue surrounding the thyroid gland. US/US soft tiss head and/or neck IMPRESSION: ACR TI RADS category 5 and 4. ACR TI-RADS RECOMMENDATION REFERENCE: Ultrasound-guided fine-needle aspiration, followup ultrasound, no further follow up. * TR1 (0 point) and TR2 (2 points): No FNA or follow up. * TR3 (3 points): FNA if more than or equal to 2.5 cm in maximum dimension, followup ultrasound in 1, 3 and 5 years if 1.5 to 2.4 cm in maximum dimension. * TR4 (4-6 points): FNA if more than or equal to 1.5 cm in maximum dimension, followup ultrasound in 1, 2, 3 and 5 years if 1 to 1.4 cm in maximum dimension. * TR5 (more than or equal to 7 points): FNA if more than or equal to 1 cm in maximum dimension, followup ultrasound every year for 5 years if 0.5 to 0.9 cm in maximum dimension. * TR3, TR4 or TR5 nodules that are below the size threshold for followup receive no follow up. Electronically signed by: Jaden Phillips MD 02/20/2025 02:26 PM [facility]
--- OUTSIDE RECORDS SUMMARY | 2025-02-20 15:11 | XMS_ITS | Clinical Summary ---
Author Organization [facility] Address [address] [place] [id number] Phone Care Team Providers Care Quality Assurance Qa Lab Analyst Name Role Phone Melisa Robb Primary Care Provider [phone] Social History Tobacco Use Types Packs/Day Years [...] on patient's age to complete this topic IPV VACCINES Aged Out No longer eligi ble based on patient's age to complete this topic MENINGOCOCCAL VACCINES (ACWY) Aged Out No longer eligible based on patient's age to complete this topic MENINGOCOCCAL VACCINES (B) Aged Out N o longer eligible based on patient's age to complete this topic Medical Devices Not on file Insurance [facility] NON NSPG PCP [facility] CONNECTORCARE [employer] NON [facility]SPG PCP [facility] [employer] CONNE[employer]CARE [employer] NON NSPG PCP S[employer] CONNECTORCARE [employer] NON NSPG PCP [facility] CONNECTORCARE [facility] NON NSPG PCP [employer] CONNECTORCARE Care Teams Quality Assurance Qa Lab Analyst Relationship Specialty Start Date End Date Melisa Robb PA [address] [place] [address] [phone] PCP - General Physician Secondary Education Professor 08/29/24 Additional Source Comments The information contained in this document represents components of the legal health record. It is not the complete legal health record.[facility]
--- OUTSIDE RECORDS SUMMARY | 2025-02-20 15:11 | XMS_ITS | Clinical Summary ---
Author Organization [facility] Address [address] [place] [address] Care Team Providers Care Marble Installer Supervisor Name Role Phone System, Provider Not [...] (3 - 2024- season) 12/10/202411/2020, 07/26/2020 Insurance [facility] Care Teams Marble Installer Supervisor Relationship Specialty Start Date End Date System, Provider Not In PCP - General 09/27/21
== END 2025-02-20 12:33 | disposition home or self-care (01) ==
LOC: HO.US 12:32
PROVIDERS: PCP Physician Assistant; Visit Provider Physician Assistant
DX: E04.1 Nontoxic single thyroid nodule (principal)
CPT/HCPCS: 76536

== ENCOUNTER → 2025-02-20 12:35 | Outpatient (BNV) | payer OTHER, SELFPAY | PROVIDERS: PCP Physician Assistant; Visit Provider Radiology Diagnostic Radiology | DX: E04.1 Nontoxic single thyroid nodule (principal) | CPT/HCPCS: 76536 ==

== ENCOUNTER 2025-02-26 07:49 | Outpatient (AMB) | payer OTHER, SELFPAY ==
[2025-02-26 07:59] VITALS: BP 112/74; PULSE 74; BMI 28.6
--- NOTE | 2025-02-26 07:59 | MHC.OFFVIS ---
Vital Signs 02/26/25 07:59 Height 5 ft 9 in Weight 193 lb 9.054 oz BMI 28.6 BP 112/74 Blood Pressure Location Rt brachial Position Sitting Pulse 74 Pulse Source Pulse Oximeter Intake Visit Reasons: Nontoxic single thyroid nodule Intake Note: New patient internally referred by PCP for Nontoxic Single Thyroid Nodule. Interior Block Wirer Required: No Accompanied by: Self / Same As Patient Allergies thiopental (From Pentothal) Allergy (Mild, Verified 02/26/25 08:05) Nausea (from sodium pentothal) Medication List - Last Reconciled 02/26/25 by Leobardo Roe MD acetaminophen 500 mg PO DAILY biotin 1 mg PO DAILY bisacodyl (Dulcolax (bisacodyl)) 20 mg (4 x 5 mg) PO ONCE 1 day docusate sodium (Colace) 100 mg PO DAILY hydrochlorothiazide 25 mg PO DAILY melatonin 10 mg PO DAILY PRN multivitamin 1 tab PO DAILY polyethylene glycol 3350 (Miralax) 238 grams PO ONCE potassium chloride ER (K-Tab) 20 mEq PO DAILY HPI Comments Details: 60 YO F who is seen in consultation for multinodular thyroid at the request of PCP. Saw татьяна at [facility] . Patient declined use of AI scribe SHIREEN Was initially diagnosed with multinodular thyroid in yrs with thyroid US revealing MNG . Saw Dr. Alberto who did FNA and followed by US Currently denies any dysphagia or hoarseness of voice. Denies sensation of swelling in the neck or difficulty breathing while lying flat. Denies any tenderness in the neck. Denies any palpitations, tremors, weight loss, frequent bowel movements. Denies any ocular complaints, blurred or double vision. Denies hair loss, dry skin, heat or cold intolerance, weight gain, confusion. Denies any history of head or neck irradiation. Denies any family history of thyroid cancer or thyroid DX. Had biopsy of nodules in the past. Thyroid US: FINDINGS: SIZE: Measurements of the thyroid lobes and nodules are given in sagittal, anteroposterior and transverse dimensions respectively. Right Thyroid Lobe: 6.0 x 2.0 x 1.9 cm, volume 12 mL. Parenchyma: The gland echotexture is heterogeneous. Thyroid vascularity is normal. Left Thyroid Lobe: 5.4 x 1.1 x 1.7 cm, volume 5.3 mL. Parenchyma: The gland echotexture is heterogeneous. Thyroid vascularity is normal. Isthmus: 0.2 cm in maximum AP dimension. Estimated total number of nodules greater than or equal to 1 cm: 3. 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 Location: Midportion, right lobe. Size: 2.8 x 1.8 x 2.0 cm, volume 5.1 mL. Nodule characteristics: Composition: Solid (2). Echogenicity: Isoechoic (1). Shape: Not taller than wide (0). Margins: Smooth (0). Echogenic Foci: None (0). ACR TI-RADS total points: 3 ACR TI-RADS category: 3 2. Location: Lower pole, right lobe. Size: 1.5 x 1.5 x 1.7 cm, volume 2.0 mL. Nodule characteristics: Composition: Solid (2). Echogenicity: Very hypoechoic (3). Shape: Not taller than wide (0). Margins: Lobulated (2). Echogenic Foci: Macrocalcifications (1). ACR TI-RADS total points: 8 ACR TI-RADS category: 5 3. Location: Isthmus/lower pole, right lobe.. Size: 0.9 x 0.5 x 0.8 cm, volume 0.2 mL. Nodule characteristics: Composition: Solid (2). Echogenicity: Very hypoechoic (3). Shape: Not taller than wide (0). Margins: Smooth (0). Echogenic Foci: None (0). ACR TI-RADS total points: 5 ACR TI-RADS category: 4 4. Location: Midportion left lobe. Size: 1.7 x 0.6 x 1.4 cm, volume 0.8 mL. Nodule characteristics: Composition: Spongiform (0). Echogenicity: Shape: Margins: Echogenic Foci: ACR TI-RADS total points: 0 ACR TI-RADS category: 1 5. Location: Lower pole left lobe. Size: 0.6 x 0.6 x 0.7 cm, volume 0.1 mL. Nodule characteristics: Composition: Cannot be determined (2). Echogenicity: Very hypoechoic (3). Shape: Not taller than wide (0). Margins: Smooth (0). Echogenic Foci: Peripheral calcifications (2) ACR TI-RADS total points: 7 ACR TI-RADS category: 5 NODES: No lymphadenopathy is seen in the tissue surrounding the thyroid gland. US/US soft tiss head and/or neck IMPRESSION: ACR TI RADS category 5 and 4. Labs: [facility] Medical History Axillary nerve palsy Constipation Dysplastic nevus Hx of transfusion of packed red blood cells Arthritis Hx of ectopic PONV (postoperative nausea and vomiting) History of diverticulitis Thyroid nodule Insomnia DJD (degenerative joint disease) Hypertension Surgical History History of surgery on arm S/P panniculectomy H/O tubal ligation S/P laparoscopic sleeve gastrectomy Hx of cholecystectomy Hx of colonoscopy Hx of hysterectomy, total Family History Mother Hypertension Father Hypertension Sister No problems noted. Sister No problems noted. Sister No problems noted. Sister No problems noted. Sister Hypertension Stroke Brother No problems noted. 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 There are no thyroid nodules palpated. There is no cervical adenopathy palpable Assessment & Plan Assessment & Plan (1) Thyroid nodule: Code(s): E04.1 - Nontoxic single thyroid nodule Category: Medical Plan: This is a 60-year-old white female with a history of multinodular goiter with dominant right mid and right lower pole nodules that most likely want to FNA. Patient appears clinically and biochemically euthyroid Plan is to obtain Dr. Panta's notes from [facility] including previous ultrasounds, FNAs and pathology reports. We will have patient return in about 4-5 months' time after have reviewed above determine further action Coding Level of Care Code New Pt Level 4 (27106) Diagnoses Thyroid nodule E04.1
== END 2025-02-26 08:27 | disposition home or self-care (01) ==
LOC: HO.ENCR 07:50
PROVIDERS: PCP Physician Assistant; Visit Provider Internal Medicine Endocrinology, Diabetes & Metabolism
DX: E04.1 Nontoxic single thyroid nodule (principal)
CPT/HCPCS: 99204

== ENCOUNTER → 2025-02-26 07:49 | Outpatient (BNVA) | payer OTHER, SELFPAY | PROVIDERS: PCP Physician Assistant; Visit Provider Internal Medicine Endocrinology, Diabetes & Metabolism | DX: E04.1 Nontoxic single thyroid nodule (principal) | CPT/HCPCS: 99202 ==